=== PATIENT | male | born 1960 | race Caucasian/White ===

== ENCOUNTER 2018-07-16 08:40 | Outpatient (REF) | payer OTHER, SELFPAY ==
[2018-07-16 22:23] LABS: ALT 70 U/L (12-78); Anion Gap 8.6 mmol/L (3-11); BUN 12 mg/dL (7-18); CO2 30.4 mmol/L (21.0-32.0); CREATININE 1.21 mg/dL (0.70-1.30); Calcium 8.8 mg/dL (8.5-10.1); Chloride 100 mmol/L (98-107); Cholesterol 152 mg/dL (50-200); Glucose 122 mg/dL (70-100); HDL Cholesterol 36 mg/dL (40-60); LDL CHOLESTEROL 88 mg/dL (<100); Potassium 3.6 mmol/L (3.5-5.1); Sodium 139 mmol/L (136-145); Triglyceride 293 mg/dL (30-150)
== END 2018-07-16 09:00 ==
LOC: NCHCN 08:40
PROVIDERS: PCP Family Medicine; Visit Provider Family Medicine
DX: E03.9 Hypothyroidism, unspecified (principal); E11.319 Type 2 diabetes mellitus with unspecified diabetic retinopathy without macular edema; Z00.00 Encounter for general adult medical examination without abnormal findings
CPT/HCPCS: 80048; 80061; 83721; 84443; 84460

== ENCOUNTER 2019-07-29 11:01 | Outpatient (REF) | payer OTHER, SELFPAY ==
[2019-07-29 22:50] LABS: TSH (W/Ref FT4) 2.57 uIU/mL (0.36-3.74)
== END 2019-07-29 11:21 ==
LOC: NCHCN 11:01
PROVIDERS: PCP Family Medicine; Visit Provider Family Medicine
DX: E03.9 Hypothyroidism, unspecified (principal)
CPT/HCPCS: 84443

== ENCOUNTER 2020-02-03 10:25 | Outpatient (REF) | payer OTHER, SELFPAY ==
[2020-02-03 21:52] LABS: COMMENT (LAB VIEW ONLY) 179.05 mg/dL; Microalb ug/mg Crea 7.5 ug/mg Cr
== END 2020-02-03 10:45 ==
LOC: NCHCN 10:25
PROVIDERS: PCP Family Medicine; Visit Provider Family Medicine
DX: E11.9 Type 2 diabetes mellitus without complications (principal)
CPT/HCPCS: 82043; 82570

== ENCOUNTER 2020-09-15 17:46 | Outpatient (REF) | payer OTHER, SELFPAY ==
[2020-09-15 22:45] LABS: BUN 16 mg/dL (7-18); CREATININE 1.19 mg/dL (0.70-1.30)
== END 2020-09-15 18:06 ==
LOC: NCHCN 17:46
PROVIDERS: PCP Family Medicine; Visit Provider Registered Nurse
DX: R94.4 Abnormal results of kidney function studies (principal)
CPT/HCPCS: 84520; 82565

== ENCOUNTER 2020-12-07 17:27 | Outpatient (REF) | payer OTHER, SELFPAY ==
[2020-12-07 20:57] LABS: Anion Gap 10.6 mmol/L (3-11); CO2 27.4 mmol/L (21.0-32.0); Chloride 101 mmol/L (98-107); Potassium 3.5 mmol/L (3.5-5.1); Sodium 139 mmol/L (136-145)
[2020-12-08 18:22] LABS: PSA, Screening 0.4 ng/mL (0.0-4.5)
== END 2020-12-07 17:28 | disposition home or self-care (01) ==
LOC: NCHCN 17:27
PROVIDERS: PCP Family Medicine; Visit Provider Family Medicine
DX: E11.9 Type 2 diabetes mellitus without complications (principal); E78.5 Hyperlipidemia, unspecified; I10 Essential (primary) hypertension; Z12.5 Encounter for screening for malignant neoplasm of prostate
CPT/HCPCS: 80051; 84153

== ENCOUNTER 2021-03-09 08:16 | Outpatient (REF) | payer OTHER, SELFPAY ==
[2021-03-09 22:22] LABS: Anion Gap 8.7 mmol/L (3-11); BUN 22 mg/dL (7-18); CO2 29.3 mmol/L (21.0-32.0); CREATININE 1.1 mg/dL (0.70-1.30); Calcium 9.2 mg/dL (8.5-10.1); Chloride 100 mmol/L (98-107); Glucose 124 mg/dL (74-106); Potassium 3.7 mmol/L (3.5-5.1); Sodium 138 mmol/L (136-145); TSH 0.87 uIU/mL (0.36-3.74)
== END 2021-03-09 08:17 | disposition home or self-care (01) ==
LOC: NCHCN 08:16
PROVIDERS: PCP Family Medicine; Visit Provider Family Medicine
DX: Z00.00 Encounter for general adult medical examination without abnormal findings (principal); E03.9 Hypothyroidism, unspecified; I10 Essential (primary) hypertension; E11.9 Type 2 diabetes mellitus without complications
CPT/HCPCS: 80048; 84443

== ENCOUNTER 2022-03-29 16:02 | Outpatient (REF) | payer OTHER, SELFPAY ==
[2022-03-29 21:38] LABS: Abs Immature Grans 0.01 10^3/uL (0.0-0.06); Absolute Basophil Count 0.03 10^3/uL (0.0-0.2); Absolute Eosinophil Count 0.15 10^3/uL (0.0-0.7); Absolute Lymphocyte Count 1.45 10^3/uL (1.2-3.4); Absolute Monocyte Count 0.53 10^3/uL (0.1-0.8); Absolute Neutrophil Count 1.87 10^3/uL (1.2-6.7); Basophils % 0.7; Eosinophils % 3.7; HCT 37.9 % (40.0-50.0); HGB 13.1 g/dL (13.5-17.5); Immature Grans % 0.2; Lymphocytes % 35.9; MCH 33.4 pg (27.0-33.0); MCHC 34.6 % (32.0-36.0); MCV 97 fL (80-95); MPV 10.8 fL (8.0-11.0); Monocytes % 13.1; Neutrophils % 46.4; Platelet Count 227 10^3/uL (130-400); RBC 3.92 10^6/uL (4.36-5.78); RDW 12.6 % (11.8-14.1); RDW-SD 44.7 fL; WBC 4.04 10^3/uL (4.4-10.8)
[2022-03-29 21:49] LABS: ALT 41 U/L (16-63); AST 29 U/L (15-37); Albumin 4.1 g/dL (3.4-5.0); Alkaline Phosphatase 89 U/L (46-116); Anion Gap 9.8 mmol/L (3-11); BUN 15 mg/dL (7-18); Bilirubin, Total 0.3 mg/dL (0.2-1.0); CO2 27.2 mmol/L (21.0-32.0); CREATININE 1.1 mg/dL (0.70-1.30); Calculated LDL 70 mg/dL (<100); Chloride 101 mmol/L (98-107); Cholesterol 176 mg/dL (<200); Glucose 117 mg/dL (74-106); HDL Cholesterol 42 mg/dL (40-60); Potassium 3.8 mmol/L (3.5-5.1); Sodium 138 mmol/L (136-145); TSH 2.46 uIU/mL (0.36-3.74); Total Protein 7.3 g/dL (6.4-8.2); Triglyceride 324 mg/dL (<150)
[2022-03-29 22:08] LABS: Hemoglobin A1C 6.4 % (<5.7)
== END 2022-03-29 16:03 | disposition home or self-care (01) ==
LOC: NCHCN 16:02
PROVIDERS: PCP Family Medicine; Visit Provider Family Medicine
DX: E78.5 Hyperlipidemia, unspecified (principal); E11.9 Type 2 diabetes mellitus without complications; E03.9 Hypothyroidism, unspecified; D48.5 Neoplasm of uncertain behavior of skin; L57.0 Actinic keratosis; E88.81 Metabolic syndrome and other insulin resistance; M16.12 Unilateral primary osteoarthritis, left hip; Z01.818 Encounter for other preprocedural examination; Z01.812 Encounter for preprocedural laboratory examination
CPT/HCPCS: 80053; 80061; 87081; 83036; 84443; 85025

== ENCOUNTER 2022-09-20 18:01 | Outpatient (REF) | payer OTHER, SELFPAY ==
[2022-09-20 21:53] LABS: COMMENT (LAB VIEW ONLY) 110.13 mg/dL
== END 2022-09-20 18:02 | disposition home or self-care (01) ==
LOC: NCHCN 18:01
PROVIDERS: PCP Family Medicine; Visit Provider Family Medicine
DX: E11.9 Type 2 diabetes mellitus without complications (principal)
CPT/HCPCS: 82043; 82570

== ENCOUNTER 2023-04-04 18:24 | Outpatient (REF) | payer OTHER, SELFPAY ==
[2023-04-04 22:29] LABS: Anion Gap 9.9 mmol/L (3-11); BUN 14 mg/dL (7-18); CO2 30.1 mmol/L (21.0-32.0); CREATININE 1.2 mg/dL (0.70-1.30); Calcium 9.3 mg/dL (8.5-10.1); Calculated LDL 44 mg/dL (<100); Chloride 101 mmol/L (98-107); Cholesterol 125 mg/dL (<200); Estimated GFR 67.95 (mL/min/1.73m2); Glucose 103 mg/dL (74-106); HDL Cholesterol 44 mg/dL (40-60); Potassium 3.7 mmol/L (3.5-5.1); Sodium 141 mmol/L (136-145); TSH 2.64 uIU/mL (0.36-3.74); Triglyceride 189 mg/dL (<150)
[2023-04-05 17:51] LABS: PSA, Screening 0.3 ng/mL (<=4.5)
== END 2023-04-04 18:25 | disposition home or self-care (01) ==
LOC: NCHCN 18:24
PROVIDERS: PCP Family Medicine; Visit Provider Family Medicine
DX: E03.9 Hypothyroidism, unspecified (principal); E78.6 Lipoprotein deficiency; I10 Essential (primary) hypertension; Z00.00 Encounter for general adult medical examination without abnormal findings; Z12.5 Encounter for screening for malignant neoplasm of prostate
CPT/HCPCS: 80048; 80061; 84153; 84443

== ENCOUNTER 2023-10-03 12:05 | Outpatient (REF) | payer OTHER, SELFPAY ==
[2023-10-03 21:16] LABS: BUN 13 mg/dL (7-18); Calcium 9.4 mg/dL (8.5-10.1); Chloride 101 mmol/L (98-107); Estimated GFR 84.57 (mL/min/1.73m2); Glucose 108 mg/dL (74-106); Potassium 3.6 mmol/L (3.5-5.1); Sodium 140 mmol/L (136-145); Uric Acid 5.3 mg/dL (3.5-7.2)
[2023-10-03 21:27] LABS: COMMENT (LAB VIEW ONLY) 150.02 mg/dL; Microalb ug/mg Crea 11.9 ug/mg Cr
--- OUTSIDE RECORDS SUMMARY | 2023-10-16 12:09 | XMS_ITS | CCD ---
Author Name Unknown Address [address] [place] [address] [phone] Organization Unknown Address [address] [place] [address] [phone] Care Team Providers Care Jack Tamp Operator Name Role Phone LAUREEN RIVERA Attending Physician [phone] Vital Signs Unknown or Not Available. Allergies Allergy Code Allergy Type Reaction Status [facility] 36726 Drug allergy ITCHING Active Procedures Unknown or Not Available. History of Immunizations Unknown or Not Available. Problems Problem Code Start Date Resolved Date Status Abdominal pain 47367829 Active Enterocolitis 75001844 Active Gout 99682497 Active Results Unknown or Not Available. Active Medications Unknown or Not Available. Medications Administered During Visit Unknown or Not Available. Encounters Encounter Diagnosis Diagnosis Code Start Date Calculus of gallbladder with chronic cholecystitis without obstruction K8010 07/11/2023 Social History Smoking Status Code Start Date End Date Former smoker [id number] Patient Decision Aids Unknown or Not Available. Discharge Instructions You were admitted to 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 on 07/13/2023 00:48 Should you have any questions prior to discharge, please contact a member of your healthcare team. If you have left the hospital and have any questions, please contact your primary care physician. Chief Complaint and Reason For Visit Unknown or Not Available. Function Status Unknown or Not Available. Plan of Care Unknown or Not Available. Referral/Transition of Care Unknown or Not Available.
--- OUTSIDE RECORDS SUMMARY | 2023-10-16 12:10 | XMS_ITS | CCD ---
Author Name Unknown Address [address] [place] [address] [phone] Organization Unknown Address [address] [place] [address] [phone] Care Team Providers Care Retail Performance Specialist Name Role Phone BERNARD BRITTON Attending Physician [phone] BERNARD BRITTON Rounding (Secondary) Physician [phone] Vital Signs Unknown or Not Available. Allergies Allergy Code Allergy Type Reaction Status [facility] 56860 Drug allergy ITCHING Active Procedures Unknown or Not Available. History of Immunizations Unknown or Not Available. Problems Problem Code Start Date Resolved Date Status Abdominal pain 79222234 Active Enterocolitis 41179051 Active Gout 76925651 Active Results Unknown or Not Available. Active Medications Unknown or Not Available. Medications Administered During Visit Unknown or Not Available. Encounters Encounter Diagnosis Diagnosis Code Start Date Disorder of joint of ankle and/or foot [id number] 03/26/2023 Social History Smoking Status Code Start Date End Date Former smoker [id number] Patient Decision Aids Unknown or Not Available. Discharge Instructions You were admitted to [facility] on 03/26/2023 14:54 with a principal diagnosis of Other specified joint disorders, right ankle and foot You were discharged from [facility] on 03/26/2023 00:00 Should you have any questions prior to [...]
--- OUTSIDE RECORDS SUMMARY | 2023-10-16 12:10 | XMS_ITS | CCD ---
Author Name Unknown Address [address] [place] [address] [phone] Organization Unknown Address [address] [place] [address] [phone] Care Team Providers Care Escalator Installer Name Role Phone BERNARD BRITTON Attending Physician [phone] BERNARD BRITTON Rounding (Secondary) Physician [phone] Vital Signs Unknown or Not Available. Allergies Allergy Code Allergy Type Reaction Status [facility] [address]4724 Drug allergy ITCHING Active Procedures Unknown or Not Available. History of Immunizations Unknown or Not Available. Problems Problem Code Start Date Resolved Date Status Abdominal pain 23954004 Active Enterocolitis 76756324 Active Gout 06766039 Active Results Unknown or Not Available. Active Medications Unknown or Not Available. Medications Administered During Visit Unknown or Not Available. Encounters Encounter Diagnosis Diagnosis Code Start Date Disorder of joint of ankle and/or foot [id number] 02/21/2023 Social History Smoking Status Code Start Date End Date Former smoker [id number] Patient Decision Aids Unknown or Not Available. Discharge Instructions You were admitted to [facility] on 02/21/2023 00:00 with a principal diagnosis of Other specified joint disorders, right ankle and foot You were discharged from [facility] on 02/21/2023 00:00 Should you have any questions prior [...]
--- OUTSIDE RECORDS SUMMARY | 2023-10-16 12:10 | XMS_ITS | CCD ---
Author Name Unknown Address [address] [place] [address] [phone] Organization Unknown Address [address] [place] [address] [phone] Care Team Providers Care Flocculator Operator Name Role Phone LAUREEN RIVERA Attending Physician [phone] ELIN GUILLEN Er Physician [phone] SHALA MCMAHON (Secondary) Physician [phone] LAI Christie Registered Nurse [phone] JUDY Christie Registered Nurse [phone] Vital Signs Vital Sign Value Unit Date/Time Recent/Initial ? BMI (Body Mass Index) 33.43 kg/m^2 07/11/2023 12: 08 Initial VS Weight Measured 233 lbs 07/11/2023 12:08 Ini tial VS Height 70 in 07/11/2023 12:08 Initial VS BSA (Body Surface Area) 2.28 m^2 07/11/2023 1 2:08 Initial VS BP Systolic 147 mmHg 07/11/2023 12:08 Initial VS BP Diastolic 89 mmHg 07/11/2023 12:08 Initia l VS Respiratory Rate 18 bpm 07/11/2023 12:08 In itial VS Heart Rate 57 bpm 07/11/2023 12:08 Initial VS O2 % BldC Oximetry 98 % 07/11/2023 12:08 Initial VS Body Temperature 35.3 degrees 07/11/2023 12:08 In itial VS BMI (Body Mass Index) 33.08 kg/m^2 07/11/2023 21: 55 Most Recent VS Weight Measured 237.18 lbs 07/11/2023 21:55 Mos t Recent VS Height 71 in 07/11/2023 21:55 Most Rec ent VS BSA (Body Surface Area) 2.32 m^2 07/11/2023 2 1:55 Most Recent VS BP Systolic 123 mmHg 07/13/2023 07:51 Most Re cent VS BP Diastolic 57 mmHg 07/13/2023 07:51 Most R ecent VS Respiratory Rate 18 bpm 07/13/2023 07:[address] Recent VS Heart Rate 56 bpm 07/13/2023 07:51 Most Rec ent VS O2 % BldC Oximetry 90 % 07/13/2023 07:51 Most Recent VS Body Temperature 37.3 degrees 07/13/2023 07:[address] Recent VS Allergies Allergy Code Allergy Type Reaction Status [facility] 45293 Drug allergy ITCHING Active Procedures Procedure Code Procedure Type Date Laparoscopy, Surgical; Cholecystectomy 04772 CP T 07/11/2023 Anesthesia, Intraperitoneal Proc, Upper Abdomen, w/Laparoscopy; NOS 92389 CPT 07/11/2023 History of Immunizations Unknown or Not Available. Problems Problem Code Start Date Resolved Date Status Abdominal pain 01575583 Active Enterocolitis 00295880 Active Gout 99925633 Active Results COMPREHENSIVE METABOLIC PANE L (CMP) - Collect Date/Time: 07/13/2023 06:51 Test Name Code Test Result Test Units Test Ref Rang e GLUCOSE 2345-7 153 mg/dL L=70 H=116 BUN 3094-0 12 mg/dL L=6 H=25 CREATININE 2160-0 1.30 mg/dL L=0.67 H=1.17 SODIUM SERUM 2951-2 137 mmol/L L=136 H=145 POTASSIUM SERUM 2823-3 3.8 mmol/L L=3.4 H=5 .2 CHLORIDE SERUM 2075-0 100 mmol/L L=96 H=110 CARBON DIOXIDE (CO2) 2028-9 29 mmol/L L=22 H=34 ANION GAP 53722-4 8.0 mmol/L CALCIUM SERUM 74540-4 8.2 mg/dL L=8.2 H=10. 2 BILIRUBIN TOTAL 1975-2 0.6 mg/dL L=0.0 H=1 .3 ALK. PHOS. 6768-6 48 U/L L=46 H=116 SGOT (AST) 1920-8 59 U/L L=15 H=37 SGPT (ALT) 1742-6 80 U/L L=12 H=78 TOTAL PROTEIN 2885-2 6.3 gm/dL L=6.0 H=8.0 ALBUMIN 1751-7 3.2 gm/dL L=3.4 H=5.0 AGE 63 years eGFR (non-Afr.Amer.) 67330-6 56 mL/min eGFR (Afr-Gibraltarian) 49475-0 67 mL/min COMPREHENSIVE METABOLIC PANE L (CMP) - Collect Date/Time: 07/12/2023 06:30 Test Name Code Test Result Test Units Test Ref Rang e GLUCOSE 2345-7 157 mg/dL L=70 H=116 BUN 3094-0 9 mg/dL L=6 H=25 CREATININE 2160-0 1.02 mg/dL L=0.67 H=1.17 SODIUM SERUM 2951-2 140 mmol/L L=136 H=145 POTASSIUM SERUM 2823-3 3.9 mmol/L L=3.4 H=5 .2 CHLORIDE SERUM 2075-0 102 mmol/L L=96 H=110 CARBON DIOXIDE (CO2) 2028-9 32 mmol/L L=22 H=34 ANION GAP 54416-1 6.3 mmol/L CALCIUM SERUM 91484-5 8.9 mg/dL L=8.2 H=10. 2 BILIRUBIN TOTAL 1975-2 0.6 mg/dL L=0.0 H=1 .3 ALK. PHOS. 6768-6 67 U/L L=46 H=116 SGOT (AST) 1920-8 100 U/L L=15 H=37 SGPT (ALT) 1742-6 114 U/L L=12 H=78 TOTAL PROTEIN 2885-2 7.1 gm/dL L=6.0 H=8.0 ALBUMIN 1751-7 3.8 gm/dL L=3.4 H=5.0 AGE 63 years eGFR (non-Afr.Amer.) 62700-6 74 mL/min eGFR (Afr-Gibraltarian) 17791-6 89 mL/min COMPREHENSIVE METABOLIC PANE L (CMP) - Collect Date/Time: 07/11/2023 12:20 Test Name Code Test Result Test Units Test Ref Rang e GLUCOSE 2345-7 199 mg/dL L=70 H=116 BUN 3094-0 11 mg/dL L=6 H=25 CREATININE 2160-0 1.08 mg/dL L=0.67 H=1.17 SODIUM SERUM 2951-2 141 mmol/L L=136 H=145 POTASSIUM SERUM 2823-3 3.8 mmol/L L=3.4 H=5 .2 CHLORIDE SERUM 2075-0 101 mmol/L L=96 H=110 CARBON DIOXIDE (CO2) 2028-9 29 mmol/L L=22 H=34 ANION GAP 09699-1 11.3 mmol/L CALCIUM SERUM 81753-4 9.2 mg/dL L=8.2 H=10. 2 BILIRUBIN TOTAL 1975-2 0.7 mg/dL L=0.0 H=1 .3 ALK. PHOS. 6768-6 82 U/L L=46 H=116 SGOT (AST) 1920-8 97 U/L L=15 H=37 SGPT (ALT) 1742-6 63 U/L L=12 H=78 TOTAL PROTEIN 2885-2 7.5 gm/dL L=6.0 H=8.0 ALBUMIN 1751-7 4.1 gm/dL L=3.4 H=5.0 AGE 63 years eGFR (non-Afr.Amer.) 15479-4 69 mL/min eGFR (Afr-Gibraltarian) 33645-9 84 mL/min LIPASE* NEW - Collect Date/T byron: 07/11/2023 12:20 Test Name Code Test Result Test Units Test Ref Rang e LIPASE. 48 U/L L=16 H=77 NOVA GLUCOSE FINGER HEEL CAP ILLARY - Collect Date/Time: 07/13/2023 11:49 Test Name Code Test Result Test Units Test Ref Rang e GLUCOSE CAP 52896-3 154 mg/dL L=70 H=116 NOVA GLUCOSE FINGER HEEL CAP ILLARY - Collect Date/Time: 07/13/2023 07:42 Test Name Code Test Result Test Units Test Ref Rang e GLUCOSE CAP 71092-2 153 mg/dL L=70 H=116 NOVA GLUCOSE FINGER HEEL CAP ILLARY - Collect Date/Time: 07/12/2023 20:54 Test Name Code Test Result Test Units Test Ref Rang e GLUCOSE CAP 17812-1 183 mg/dL L=70 H=116 NOVA GLUCOSE FINGER HEEL CAP ILLARY - Collect Date/Time: 07/12/2023 17:50 Test Name Code Test Result Test Units Test Ref Rang e GLUCOSE CAP 22699-8 182 mg/dL L=70 H=116 NOVA GLUCOSE FINGER HEEL CAP ILLARY - Collect Date/Time: 07/12/2023 11:49 Test Name Code Test Result Test Units Test Ref Rang e GLUCOSE CAP 94263-7 151 mg/dL L=70 H=116 NOVA GLUCOSE FINGER HEEL CAP ILLARY - Collect Date/Time: 07/12/2023 07:49 Test Name Code Test Result Test Units Test Ref Rang e GLUCOSE CAP 49953-4 152 mg/dL L=70 H=116 NOVA GLUCOSE FINGER HEEL CAP ILLARY - Collect Date/Time: 07/11/2023 21:21 Test Name Code Test Result Test Units Test Ref Rang e GLUCOSE CAP 24287-9 89 mg/dL L=70 H=116 CBC W/ DIFFERENTIAL* - Colle ct Date/Time: 07/13/2023 06:51 Test Name Code Test Result Test Units Test Ref Rang e WBC 6690-2 7.62 th/cmm L=5.00 H=10.00 NEUT % 80.0 % L=40.0 H=80.0 LYMPH % 12.3 % L=10.0 H=50.0 MONO % 91772-9 6.7 % L=2.0 H=12.0 EOS % 0.5 % L=0.0 H=8.0 BASO % 0.1 % L=0.0 H=3.0 IG % 2514-8 0.4 % L=0.0 H=1.1 NRBC % 25729-9 0.0 % L=0.0 H=0.0 NEUT abs count 751-8 6.1 th/cmm L=1.6 H=8. 4 LYMPH abs count 731-0 0.9 th/cmm L=1.5 H=4 .0 MONO abs count 742-7 0.5 th/cmm L=0.2 H=1. 0 EOS abs count 711-2 0.0 th/cmm L=0.0 H=0.5 BASO abs count 704-7 0.0 th/cmm L=0.0 H=0. 2 IG abs count 81398-7 0.0 th/cmm L=0.0 H=0.1 NRBC abs count 37807-3 0.0 mil/cmm L=0.0 H=0. 0 RBC 789-8 3.73 mil/cmm L=4.30 H=6.20 HEMOGLOBIN 718-7 12.4 gm/dL L=13.0 H=17.0 HEMATOCRIT 4544-3 37 % L=45 H=52 MCV 787-2 99 fL L=82 H=92 MCH 785-6 33.2 pg L=27.0 H=31.0 MCHC 786-4 33.7 % L=32.0 H=36.0 RDW-SD 788-0 46.3 fL L=39.0 H=49.0 PLATELET COUNT 777-3 157 th/cmm L=150 H=45 0 CBC W/ DIFFERENTIAL* - Colle ct Date/Time: 07/12/2023 06:30 Test Name Code Test Result Test Units Test Ref Rang e WBC 6690-2 3.55 th/cmm L=5.00 H=10.00 NEUT % 50.1 % L=40.0 H=80.0 LYMPH % 33.0 % L=10.0 H=50.0 MONO % 96700-8 12.1 % L=2.0 H=12.0 EOS % 3.9 % L=0.0 H=8.0 BASO % 0.6 % L=0.0 H=3.0 IG % 2514-8 0.3 % L=0.0 H=1.1 NRBC % 12501-7 0.0 % L=0.0 H=0.0 NEUT abs count 751-8 1.8 th/cmm L=1.6 H=8. 4 LYMPH abs count 731-0 1.2 th/cmm L=1.5 H=4 .0 MONO abs count 742-7 0.4 th/cmm L=0.2 H=1. 0 EOS abs count 711-2 0.1 th/cmm L=0.0 H=0.5 BASO abs count 704-7 0.0 th/cmm L=0.0 H=0. 2 IG abs count 02412-0 0.0 th/cmm L=0.0 H=0.1 NRBC abs count 55324-8 0.0 mil/cmm L=0.0 H=0. 0 RBC 789-8 4.05 mil/cmm L=4.30 H=6.20 HEMOGLOBIN 718-7 13.5 gm/dL L=13.0 H=17.0 HEMATOCRIT 4544-3 40 % L=45 H=52 MCV 787-2 99 fL L=82 H=92 MCH 785-6 33.3 pg L=27.0 H=31.0 MCHC 786-4 33.8 % L=32.0 H=36.0 RDW-SD 788-0 44.9 fL L=39.0 H=49.0 PLATELET COUNT 777-3 177 th/cmm L=150 H=45 0 CBC W/ DIFFERENTIAL* - [facility] ct Date/Time: 07/11/2023 12:20 Test Name Code Test Result Test Units Test Ref Rang e WBC 6690-2 4.71 th/cmm L=5.00 H=10.00 NEUT % 64.8 % L=40.0 H=80.0 LYMPH % 21.0 % L=10.0 H=50.0 MONO % 41576-0 10.0 % L=2.0 H=12.0 EOS % 3.4 % L=0.0 H=8.0 BASO % 0.6 % L=0.0 H=3.0 IG % 2514-8 0.2 % L=0.0 H=1.1 NRBC % 00764-6 0.0 % L=0.0 H=0.0 NEUT abs count 751-8 3.1 th/cmm L=1.6 H=8. 4 LYMPH abs count 731-0 1.0 th/cmm L=1.5 H=4 .0 MONO abs count 742-7 0.5 th/cmm L=0.2 H=1. 0 EOS abs count 711-2 0.2 th/cmm L=0.0 H=0.5 BASO abs count 704-7 0.0 th/cmm L=0.0 H=0. 2 IG abs count 82097-7 0.0 th/cmm L=0.0 H=0.1 NRBC abs count 68596-7 0.0 mil/cmm L=0.0 H=0. 0 RBC 789-8 3.99 mil/cmm L=4.30 H=6.20 HEMOGLOBIN 718-7 13.5 gm/dL L=13.0 H=17.0 HEMATOCRIT 4544-3 39 % L=45 H=52 MCV 787-2 98 fL L=82 H=92 MCH 785-6 33.8 pg L=27.0 H=31.0 MCHC 786-4 34.4 % L=32.0 H=36.0 RDW-SD 788-0 44.5 fL L=39.0 H=49.0 PLATELET COUNT 777-3 193 th/cmm L=150 H=45 0 URINALYSIS WITH REFLEX CULT IF POSITIVE* - Collect Date/Time: 07/11/2023 12:35 Test Name Code Test Result Test Units Test Ref Rang e COLLECTION MODE: 54356-7 CLEAN CATCH N/A Color 5778-6 YELLOW N/A yellow Appearance 5767-9 CLEAR N/A clear Glucose urine 77588-3 NEGATIVE N/A negative mg /dl Bilirubin 5770-3 NEGATIVE N/A negative Ketones 2514-8 TRACE N/A negative mg/dl Spec gravity 5811-5 >=1.030 N/A 1.003 - 1.03 0 pH urine 2756-5 6.0 N/A 5.0 - 7.0 Protein 28401-3 30 N/A negative mg/dl Urobilinogen 98459-9 1.0 N/A <or= 1 EU/dl Nitrite. 5802-4 NEGATIVE N/A negative Blood 5794-3 NEGATIVE N/A negative Leukocytes. NEGATIVE N/A negative MICROSCOPIC INDICATED N/A WBCs. 02312-3 0-5 N/A 0-5 / hpf RBCs 19431-6 none N/A 0-5 / hpf Epith cells 96992-5 0-5 N/A 0-5 / hpf Cell types squamous N/A Crystals none N/A none Bacteria none N/A none Mucus 8247-9 none N/A none Casts 69801-9 5-10 N/A none /lpf Cast types hyaline N/A Active Medications Medication Code Dose Units Frequency Route Modificatio n Start Date/Time DEXTROSE 50% SYRINGE: 25GM/50ML 745016 12.5 GM PRN IVP 0 07/12/2023 18:13 GLUCAGON INJ SDV: 1MG 178090 1 MG PRN IM 07/12/2023 18:13 INSULIN PEN LISPRO: 300UNITS/3ML 5000737 Unit(s) PRN SUBQ 023 18:06 LEVOTHYROXINE TABLET: 75MCG 973962 75 MCG DAILY PO 2022 18:05 NF-Atenolol/Chlort halidone Tablet 50MG-2 857474 1 EA DAILY PO 07/12/2023 18:05 ACETAMINOPHEN INJ IVPB: 1000MG/100ML 083497 PRN Q6H IVPB 0 07/12/2023 18:02 ~~ ACETAMINOPHEN INJ IVPB: 1000MG/100ML 720416 2406 MG HYDROmorphone INJ SYRINGE: 0.5MG/0.5ML 4301663 0.5 MG PRN Q2H IVP 07/12/20 18:02 ONDANSETRON INJ SDV: 4MG/2ML 7214464 4 MG PRN Q6H IVP 023 18:02 OxyCODONE TABLET no apap added: 5mg 7103018 5 MG PRN Q3H PO 0 07/12/2023 18:02 PANTOPRAZOLE INJ SDV: 40MG 07290147244 40 MG DAILY IVP 07/12/20 23 18:02 POTASSIUM CHL IN D5%-1/2NS: 20mEq/1000ML 4087536 CONT IV 023 18:02 ~~ POTASSIUM CHL IN D5%-1/2NS: 20mEq/1000ML 7635758 20 MEQ CefTRIAXone IVPB: 2GM/50ML 6900608 Q24H IVPB 07/12/2023 17:00 ~~ CefTRIAXone INJ SDV: 2GM 2725034 2 GM ~~ SODIUM CHLORIDE 0.9% MB PLUS 50ML 9518655 50 ML LACTATED RINGERS 1000ML 017074 X1 IV 07/12/2023 09:05 ~~ LACTATED RINGERS 1000ML 547311 9939 ML PATIENT'S OWN MEDS REMINDER TO NURSING 49321941236 1 --- X1 PO 07/12/20 08:40 MIDAZOLAM INJ SDV: 2MG/2ML 9813216 2 MG X1 IVP 07/12/2023 06:00 Medications Administered During Visit Medication Dose Units Frequency Route Date/Time of Last Dose SODIUM CHLORIDE 0.9% 500ML 500 ML X1 IV 07/11/2023 12:36 CefTRIAXone IVPB: 2GM/50ML 2 GM X1 IVP B 07/11/2023 17:27 SODIUM CHLORIDE 0.9% 1000ML 1000 ML X1 IV 07/11/2023 17:27 LEVOTHYROXINE TABLET: 75MCG 75 MCG DAILY PO 07/12/2023 08:06 POTASSIUM CHL IN D5%-1/2NS: 20mEq/1000ML 75 ML CONT IV 07/12/2023 10:1 4 PANTOPRAZOLE INJ SDV: 40MG 40 MG DAILY IVP 07/12/2023 08:06 INSULIN MDV LISPRO: 1000UNITS/10ML 4 Unit(s) PRN SUBQ 07/12/2023 08 :41 INSULIN PEN LISPRO: 300UNITS/3ML 4 Unit(s) PRN SUBQ 07/12/2023 12:0 5 NF-Atenolol/Chlorthalidone Tablet 50MG-2 1 TAB DAILY PO 07/12/2023 08: 58 OxyCODONE TABLET SR: 10MG 10 MG X1 PO 07/12/2023 13:23 FentaNYL INJ SYRINGE: 50MCG/ML 25 MCG PRN IN PACU Q5MIN IVP 07/12/2023 18:53 HYDROmorphone INJ SYRINGE: 0.5MG/0.5ML 0.25 MG PRN IN PACU Q5MIN IVP 07/12/2023 18:23 ACETAMINOPHEN INJ IVPB: 1000MG/100ML 1000 MG PRN IN PACU X1 IVPB 07/12/2023 18 :05 KETOROLAC INJ SDV: 30MG/1ML 30 MG PRN IN PACU X1 IVP 07/12/2023 18:02 ONDANSETRON INJ SDV: 4MG/2ML 4 MG PRN IN PACU X1 IVP 07/12/2023 17 :59 METOCLOPRAMIDE INJ SDV: 10MG/2ML 10 MG PRN IN PACU X1 IVP 07/12/2023 18 :31 PROMETHAZINE SUPPOSITORY: 25MG 25 MG PRN IN PACU X1 FL 07/12/2023 18 :06 LEVOTHYROXINE TABLET: 75MCG 75 MCG DAILY PO 07/13/2023 08:48 INSULIN PEN LISPRO: 300UNITS/3ML 4 Unit(s) PRN SUBQ 07/13/2023 12:4 0 POTASSIUM CHL IN D5%-1/2NS: 20mEq/1000ML 1000 ML CONT IV 07/12/2023 22:1 1 KETOROLAC INJ SDV: 30MG/1ML 15 MG Q6H IV P 07/13/2023 12:52 PANTOPRAZOLE INJ SDV: 40MG 40 MG DAILY IVP 07/13/2023 08:48 Encounters Encounter Diagnosis Diagnosis Code Start Date Calculus of gallbladder with acute and chronic cholecystitis without obstruction K8012 07/11/2023 Social History Smoking Status Code Start Date End Date Former smoker [id number] Patient Decision Aids Patient Decision Aid Laparoscopic Cholecystectomy Low Fat Diet Patient Portal Access Discharge Instructions You were admitted to [facility] on 07/11/2023 18:52 with a principal diagnosis of Calculus of gallbladder with acute and chronic cholecystitis without obstruction You had the following procedures done:Laparoscopy, Surgical; CholecystectomyAnesthesia, Intraperitoneal Proc, Upper Abdomen, w/Laparoscopy; NOS You had the following tests done:NOVA GLUCOSE FINGER HEEL CAPILLARYNOVA GLUCOSE FINGER HEEL CAPILLARYCBC W/ DIFFERENTIAL*COMPREHENSIVE METABOLIC PANEL (CMP)NOVA GLUCOSE FINGER HEEL CAPILLARYNOVA GLUCOSE FINGER HEEL CAPILLARYNOVA GLUCOSE FINGER HEEL CAPILLARYNOVA GLUCOSE FINGER HEEL CAPILLARYCBC W/ DIFFERENTIAL*COMPREHENSIVE METABOLIC PANEL (CMP)NOVA GLUCOSE FINGER HEEL CAPILLARYURINALYSIS WITH REFLEX CULT IF POSITIVE*CBC W/ DIFFERENTIAL*COMPREHENSIVE METABOLIC PANEL (CMP)LIPASE* NEW You were discharged from [facility] on 07/13/2023 13:35 Should you have any questions prior to discharge, please contact a member of your healthcare team. If you have left the hospital and have any questions, please contact your primary care physician. Chief Complaint and Reason For Visit Chief Complaint Date of Onset CHOLECYSTITIS 07/12/2023 Function Status Unknown or Not Available. Plan of Care Unknown or Not Available. Referral/Transition of Care Unknown or Not Available.
--- OUTSIDE RECORDS SUMMARY | 2023-10-16 12:10 | XMS_ITS | CCD ---
Author Name Unknown Address [address] [place] [address] [phone] Organization Unknown Address [address] [place] [address] [phone] Care Team Providers Care Idea Man Name Role Phone CHARLENE GILLILAND Attending Physician [phone] ELIN GUILLEN Er Physician [phone] SARA Page Registered Nurse [phone] Vital Signs Vital Sign Value Unit Date/Time Recent/Initial ? BMI (Body Mass Index) 32.28 kg/m^2 01/06/2023 14: 36 Initial VS Weight Measured 225 lbs 01/06/2023 14:36 Ini tial VS Height 70 in 01/06/2023 14:36 Initial VS BSA (Body Surface Area) 2.25 m^2 01/06/2023 1 4:36 Initial VS BP Systolic 132 mmHg 01/06/2023 14:36 Initial VS BP Diastolic 87 mmHg 01/06/2023 14:36 Initia l VS Respiratory Rate 18 bpm 01/06/2023 14:36 In itial VS Heart Rate 66 bpm 01/06/2023 14:36 Initial VS O2 % BldC Oximetry 99 % 01/06/2023 14:36 Initial VS Body Temperature 36 degrees 01/06/2023 14:36 In itial VS BP Systolic 130 mmHg 01/06/2023 19:04 Most Re cent VS BP Diastolic 81 mmHg 01/06/2023 19:04 Most R ecent VS Respiratory Rate 18 bpm 01/06/2023 19:[address] Recent VS Heart Rate 61 bpm 01/06/2023 19:04 Most Rec ent VS O2 % BldC Oximetry 100 % 01/06/2023 19:04 Most Recent VS Body Temperature 36.3 degrees 01/06/2023 19:[address] Recent VS Allergies Allergy Code Allergy Type Reaction Status [facility] [address] Drug allergy ITCHING Active Procedures Unknown or Not Available. History of Immunizations Unknown or Not Available. Problems Problem Code Start Date Resolved Date Status Abdominal pain 36401133 Active Enterocolitis 65075398 Active Gout 37941198 Active Diabetes 2 88278150 01/06/2023 Resolved High blood pressure 27168871 01/06/2023 Resol ezekiel Results COMPREHENSIVE METABOLIC PANE L (CMP) - Collect Date/Time: 01/06/2023 16:15 Test Name Code Test Result Test Units Test Ref Rang e GLUCOSE 2345-7 126 mg/dL L=70 H=116 BUN 3094-0 45 mg/dL L=6 H=25 CREATININE 2160-0 1.53 mg/dL L=0.67 H=1.17 SODIUM SERUM 2951-2 132 mmol/L L=136 H=145 POTASSIUM SERUM 2823-3 3.5 mmol/L L=3.4 H=5 .2 CHLORIDE SERUM 2075-0 94 mmol/L L=96 H=110 CARBON DIOXIDE (CO2) 2028-9 27 mmol/L L=22 H=34 ANION GAP 13002-4 11.2 mmol/L CALCIUM SERUM 36616-7 8.6 mg/dL L=8.2 H=10. 2 BILIRUBIN TOTAL 1975-2 0.8 mg/dL L=0.0 H=1 .3 ALK. PHOS. 6768-6 63 U/L L=46 H=116 SGOT (AST) 1920-8 88 U/L L=15 H=37 SGPT (ALT) 1742-6 86 U/L L=12 H=78 TOTAL PROTEIN 2885-2 7.9 gm/dL L=6.0 H=8.0 ALBUMIN 1751-7 3.9 gm/dL L=3.4 H=5.0 AGE 62 years eGFR (non-Afr.Amer.) 69976-9 46 mL/min eGFR (Afr-Stateless) 34122-7 56 mL/min LIPASE* NEW - Collect Date/T byron: 01/06/2023 16:15 Test Name Code Test Result Test Units Test Ref Rang e LIPASE. 81 U/L L=16 H=77 CBC W/ DIFFERENTIAL* - Colle ct Date/Time: 01/06/2023 16:15 Test Name Code Test Result Test Units Test Ref Rang e WBC 6690-2 4.01 th/cmm L=5.00 H=10.00 NEUT % 46.8 % L=40.0 H=80.0 LYMPH % 31.2 % L=10.0 H=50.0 MONO % 48559-6 20.9 % L=2.0 H=12.0 EOS % 0.7 % L=0.0 H=8.0 BASO % 0.2 % L=0.0 H=3.0 IG % 2514-8 0.2 % L=0.0 H=1.1 NRBC % 88190-0 0.0 % L=0.0 H=0.0 NEUT abs count 751-8 1.9 th/cmm L=1.6 H=8. 4 LYMPH abs count 731-0 1.3 th/cmm L=1.5 H=4 .0 MONO abs count 742-7 0.8 th/cmm L=0.2 H=1. 0 EOS abs count 711-2 0.0 th/cmm L=0.0 H=0.5 BASO abs count 704-7 0.0 th/cmm L=0.0 H=0. 2 IG abs count 26103-0 0.0 th/cmm L=0.0 H=0.1 NRBC abs count 31327-7 0.0 mil/cmm L=0.0 H=0. 0 RBC 789-8 4.88 mil/cmm L=4.30 H=6.20 HEMOGLOBIN 718-7 16.7 gm/dL L=13.0 H=17.0 HEMATOCRIT 4544-3 47 % L=45 H=52 MCV 787-2 96 fL L=82 H=92 MCH 785-6 34.2 pg L=27.0 H=31.0 MCHC 786-4 35.8 % L=32.0 H=36.0 RDW-SD 788-0 44.2 fL L=39.0 H=49.0 PLATELET COUNT 777-3 218 th/cmm L=150 H=45 0 CLOSTRIDIUM DIFFICILE BY PCR * - Collect Date/Time: 01/07/2023 08:00 Test Name Code Test Result Test Units Test Ref Rang e Consistency = 31341-3 WATERY N/A C. DIFFICILE DNA 13097-1 NEGATIVE N/A Normal: Negative LACTOFERRIN DETECTION STOOL - Collect Date/Time: 01/07/2023 08:00 Test Name Code Test Result Test Units Test Ref Rang e Consistency: WATERY N/A Lactoferrin stool POSITIVE N/A URINALYSIS WITH REFLEX CULT IF POSITIVE* - Collect Date/Time: 01/06/2023 16:43 Test Name Code Test Result Test Units Test Ref Rang e COLLECTION MODE: 10545-9 CLEAN CATCH N/A Color 5778-6 YELLOW N/A yellow Appearance 5767-9 CLEAR N/A clear Glucose urine 18547-3 NEGATIVE N/A negative mg /dl Bilirubin 5770-3 NEGATIVE N/A negative Ketones 2514-8 NEGATIVE N/A negative mg/dl Spec gravity 5811-5 1.020 N/A 1.003 - 1.03 0 pH urine 2756-5 6.0 N/A 5.0 - 7.0 Protein 27185-4 TRACE N/A negative mg/dl Urobilinogen 63844-4 0.2 N/A <or= 1 EU/dl Nitrite. 5802-4 NEGATIVE N/A negative Blood 5794-3 NEGATIVE N/A negative Leukocytes. NEGATIVE N/A negative MICROSCOPIC NOT INDICAT N/A FECAL BACTERIAL PATHOGENS BY PCR - Collect Date/Time: 01/07/2023 08:00 Test Name Code Test Result Test Units Test Ref Rang e Salmonella PCR Negative N/A Negative Shigella PCR Negative N/A Negative Campylobacter PCR Negative N/A Negativ e Shiga Toxin PCR Negative N/A Negative OVA AND PARASITES - COMPLETE * - Collect Date/Time: 01/07/2023 08:00 Test Name Code Test Result Test Units Test Ref Rang e Parasite Growth No ova and parasites seen. 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 Discharge Instructions You were admitted to [facility] on 01/06/2023 13:49 with a principal diagnosis of Noninfective gastroenteritis and colitis, unspecified You had the following tests done:CLOSTRIDIUM DIFFICILE BY PCR*FECAL BACTERIAL PATHOGENS BY PCRLACTOFERRIN DETECTION STOOLOVA AND PARASITES - COMPLETE*URINALYSIS WITH REFLEX CULT IF POSITIVE*CBC W/ DIFFERENTIAL*COMPREHENSIVE METABOLIC PANEL (CMP)LIPASE* NEW You were discharged from [facility] on 01/06/2023 21:13 Should you have any questions prior to discharge, please contact a member of your healthcare team. If you have left the hospital and have any questions, please contact your primary care physician. Chief Complaint and Reason For Visit Chief Complaint Date of Onset DIARRHEA DEHYDRATED SINCE 12/14 Function Status Unknown or Not Available. Plan of Care Unknown or Not Available. Referral/Transition of Care Unknown or Not Available.
--- OUTSIDE RECORDS SUMMARY | 2023-10-16 12:11 | XMS_ITS | CCD ---
Author Name Unknown Address [address] [place] [address] [phone] Organization Unknown Address [address] [place] [address] [phone] Care Team Providers Care Warp Tier Name Role Phone MIGUELITO ANTON Attending Physician [phone] Vital Signs Unknown or Not Available. Allergies Allergy Code Allergy Type Reaction Status [facility] 26118 Drug allergy ITCHING Active Procedures Unknown or Not Available. History of Immunizations Unknown or Not Available. Problems Problem Code Start Date Resolved Date Status Abdominal pain 87646293 Active Enterocolitis 31558711 Active Gout 90168742 Active Diabetes 2 07050114 01/06/2023 Resolved High blood pressure 65445430 01/06/2023 Resol ezekiel Results LALO POSADAONIX* - Antonio ect Date/Time: 12/28/2021 15:41 Test Name Code Test Result Test Units Test Ref Rang e Tier- 68104-3 PRE-OP N/A SARS COV2 RNA: 12113-1 NEGATIVE N/A REFERENCE RANGE: NEGAT Active Medications Unknown or Not Available. Medications Administered During Visit Unknown or Not Available. Encounters Encounter Diagnosis Diagnosis Code Start Date Pre-surgery testing [id number] 12/28/2021 Social History Smoking Status Code Start Date End Date Former smoker 6956382 Patient Decision Aids Unknown or Not Available. Discharge Instructions You were admitted to [facility] on 12/28/2021 16:06 with a principal diagnosis of Encounter for preprocedural laboratory examination You had the following tests done:LALO COVID RHEONIX* You were discharged from [facility] on 12/28/2021 16:06 Should you have any questions prior to [...]
--- OUTSIDE RECORDS SUMMARY | 2023-10-16 12:11 | XMS_ITS | CCD ---
Author Name Unknown Address [address] [place] [address] [phone] Organization Unknown Address [address] [place] [address] [phone] Care Team Providers Care Wardrobe Coordinator Name Role Phone MIGUELITO ANTON Attending Physician [phone] Vital Signs Unknown or Not Available. Allergies Allergy Code Allergy Type Reaction Status [facility] 95408 Drug allergy ITCHING Active Procedures Procedure Code Procedure Type Date Injection, Diagnostic/Therap eutic, Paravertebral Facet Joint, Lumbar Or Sacral; Single Level 45774 CPT 12/30/2021 Injection, Diagnostic/Therap eutic, Paravertebral Facet Joint, Lumbar Or Sacral; Second Level 69355 CPT 12/30/2021 History of Immunizations Unknown or Not Available. Problems Problem Code Start Date Resolved Date Status Abdominal pain 30339341 Active Enterocolitis 86618454 Active Gout 97545586 Active Diabetes 2 75468807 01/06/2023 Resolved High blood pressure 37845728 01/06/2023 Resol ezekiel Results Unknown or Not Available. Active Medications Unknown or Not Available. Medications Administered During Visit Unknown or Not Available. Encounters Encounter Diagnosis Diagnosis Code Start Date Spondylosis without myelopat hy or radiculopathy, lumbosacral region G63049 12/30/2021 Social History Smoking Status Code Start Date End Date Former smoker 2683778 Patient Decision Aids Unknown or Not Available. Discharge Instructions You were admitted to on 12/30/2021 08:29 with a principal diagnosis of Spondylosis without myelopathy or radiculopathy, lumbosacral region You had the following procedures done:Injection, Diagnostic/Therapeutic, Paravertebral Facet Joint, Lumbar Or Sacral; Single LevelInjection, Diagnostic/Therapeutic, Paravertebral Facet Joint, Lumbar Or Sacral; Second Level You were discharged from on 12/30/2021 10:00 Should you have any questions prior to [...]
--- OUTSIDE RECORDS SUMMARY | 2023-10-16 12:11 | XMS_ITS | CCD ---
Author Name Unknown Address [address] [place] [address] [phone] Organization Unknown Address [address] [place] [address] [phone] Care Team Providers Care Glass Engraver Name Role Phone MANUEL MAZA Attending Physician [phone] Vital Signs Unknown or Not Available. Allergies Allergy Code Allergy Type Reaction Status [facility] [address] Drug allergy ITCHING Active Procedures Unknown or Not Available. History of Immunizations Unknown or Not Available. Problems Problem Code Start Date Resolved Date Status Abdominal pain 47395220 Active Enterocolitis 93850923 Active Gout 83083490 Active Diabetes 2 27519098 01/06/2023 Resolved High blood pressure 19416805 01/06/2023 Resol ezekiel Results Unknown or Not Available. Active Medications Unknown or Not Available. Medications Administered During Visit Unknown or Not Available. Encounters Encounter Diagnosis Diagnosis Code Start Date Aftercare following joint replacement surgery Z4 71 05/05/2022 Social History Smoking Status Code Start Date End Date Former smoker 8669659 Patient Decision Aids Unknown or Not Available. Discharge Instructions You were admitted to [facility] on 05/05/2022 12:30 with a principal diagnosis of Aftercare following joint replacement surgery You were discharged from [facility] on 07/04/2022 13:10 Should you have any questions prior to [...]
--- OUTSIDE RECORDS SUMMARY | 2023-10-16 12:11 | XMS_ITS | CCD ---
Author Name Unknown Address [address] [place] [address] [phone] Organization Unknown Address [address] [place] [address] [phone] Care Team Providers Care Child Welfare Manager Name Role Phone MIGUELITO ANTON Attending Physician [phone] Vital Signs Unknown or Not Available. Allergies Allergy Code Allergy Type Reaction Status [facility] [address] Drug allergy ITCHING Active Procedures Unknown or Not Available. History of Immunizations Unknown or Not Available. Problems Problem Code Start Date Resolved Date Status Abdominal pain 54971704 Active Enterocolitis 48065096 Active Gout 79174037 Active Diabetes 2 58815598 01/06/2023 Resolved High blood pressure 51575298 01/06/2023 Resol ezekiel Results Unknown or Not Available. Active Medications Unknown or Not Available. Medications Administered During Visit Unknown or Not Available. Encounters Encounter Diagnosis Diagnosis Code Start Date Pain in left hip S20402 12/07/2021 Social History Smoking Status Code Start Date End Date Former smoker 0427603 Patient Decision Aids Unknown or Not Available. Discharge Instructions You were admitted to [facility] on 12/07/2021 12:03 with a principal diagnosis of Pain in left hip You were discharged from [facility] on 12/07/2021 12:03 Should you have any questions prior to [...]
== END 2023-10-03 12:06 | disposition home or self-care (01) ==
LOC: NCHCN 12:05
PROVIDERS: PCP Family Medicine; Visit Provider Family Medicine
DX: I10 Essential (primary) hypertension (principal); E11.9 Type 2 diabetes mellitus without complications
CPT/HCPCS: 80048; 82043; 82570; 84550

== ENCOUNTER 2024-01-09 18:55 | Outpatient (REF) | payer OTHER, SELFPAY ==
[2024-01-09 21:22] LABS: Hemoglobin A1C 6.6 % (<5.7)
== END 2024-01-09 18:56 | disposition home or self-care (01) ==
LOC: NCHCN 18:55
PROVIDERS: PCP Family Medicine; Visit Provider Family Medicine
DX: E11.9 Type 2 diabetes mellitus without complications (principal)
CPT/HCPCS: 83036

== ENCOUNTER 2024-05-28 19:47 | Outpatient (REF) | payer OTHER, SELFPAY ==
--- OUTSIDE RECORDS SUMMARY | 2024-05-28 20:02 | XMS_ITS | Encounter Summary ---
Author Organization [facility] Address [address] [place] [address] Care Team Providers Care Technical Support Director Name Role Phone Unavailable Primary Care Provider Unavailabl e Encounter Details Date Type Department Care Team (Latest Contact Info) Description 10/02/2001 10:45 EST - 10/02/2001 11:59 EST Hospital Encounter [facility] [address] [place] [address] Yusuf Poon MD [address] [place] [phone] Discharge Disposition: Auto Discharge Social History Tobacco Use Types Packs/Day Years Used Date Smoking Tobacco: Never Assessed Sex and Gender Information Value Date Recorded Sex Assigned at Not on file Gender Identity Not on file Sexual Orientation Not on file documented as of this encounter Discharge Disposition Disposition Code Departure Means Destination Auto Discharge documented in this encounter Plan of Treatment Not on file documented as of this encounter Procedures Procedure Name Priority Date/Time Associated Diagnosis Comments WRIST 2 VIEWS Routine 11/04/2001 10:39 EST FOREARM 2 VIEWS Routine 11/04/2001 10:39 EST WRIST 2 VIEWS Routine 11/04/2001 10:15 EST documented in this encounter Results * WRIST 2 VIEWS (11/04/2001 10:39 EST) Anatomical Region Laterality Modality Other 11/04/2001 10:3 9 EST Impressions 09/03/2009 3:19 EST IMPRESSION: 1. Status post resection of left radial head. 2. Degenerative changes at the left elbow, as described above. LEFT WRIST FINDINGS: The bones and joints of the left wrist are normal in appearance. There is no evidence of bony abnormality or fracture. FINDINGS FOR RIGHT WRIST: The bones and joints and for the right wrist are normal in appearance. There is no evidence of bony abnormality or fracture. IMPRESSION: Normal right and left wrist. /tns Narrative 09/03/2009 3:19 EST LT ELBOW/WRIST PAIN OA / COMP RT WRIST FOREARM, TWO VIEWS, LEFT: 11/04/01, 1035 HOURS. WRIST, TWO VIEWS, RIGHT. TWO VIEWS, LEFT WRIST. INDICATION: Left elbow and wrist pain. Rule out osteoarthritis. Compare to right wrist. There are no comparison examinations available. FINDINGS: FOREARM: AP and lateral views of the left forearm are obtained. The patient is status post resection of the right radial head. There is a small, well corticated periarticular fragment adjacent to the lateral proximal ulna. The elbow is in normal alignment. There is mild spurring posteriorly at the triceps attachment. Procedure Note Yeny De León / [place] C, PT - 09/03/2009 LT ELBOW/WRIST PAIN OA / COMP RT WRIST FOREARM, TWO VIEWS, LEFT: 11/04/01, 1035 HOURS. WRIST, TWO VIEWS, RIGHT. TWO VIEWS, LEFT WRIST. INDICATION: Left elbow and wrist pain. Rule out osteoarthritis. Compare to right wrist. There are no comparison examinations available. FINDINGS: FOREARM: AP and lateral views of the left forearm are obtained. The patient is status post resection of the right radial head. There is a small, well corticated periarticular fragment adjacent to the lateral proximal ulna. The elbow is in normal alignment. There is mild spurring posteriorly at the triceps attachment. IMPRESSION IMPRESSION: 1. Status post resection of left radial head. 2. Degenerative changes at the left elbow, as described above. LEFT WRIST FINDINGS: The bones and joints of the left wrist are normal in appearance. There is no evidence of bony abnormality or fracture. FINDINGS FOR RIGHT WRIST: The bones and joints and for the right wrist are normal in appearance. There is no evidence of bony abnormality or fracture. IMPRESSION: Normal right and left wrist. /tns Yusuf IBRAHIM DIAGNOSTIC IMAGI NG ORDERABLES * FOREARM 2 VIEWS (11/04/2001 10:39 EST) Anatomical Region Laterality Modality Other 11/04/2001 10:3 9 EST Narrative 09/03/2009 3:19 EST LT ELBOW/WRIST PAIN OA / COMP RT WRIST Procedure Note Yeny De León Ketan C, PT - 09/03/2009 LT ELBOW/WRIST PAIN OA / COMP RT WRIST Yusuf IBRAHIM DIAGNOSTIC IMAGI NG ORDERABLES * WRIST 2 VIEWS (11/04/2001 10:15 EST) Anatomical Region Laterality Modality Other 11/04/2001 10:1 5 EST Narrative 09/03/2009 3:19 EST LT WRIST PAIN S/P RADIAL HEAD EXCISION OA Procedure Note Yeny De León Ketan C, PT - 09/03/2009 LT WRIST PAIN S/P RADIAL HEAD EXCISION OA Yusuf IBRAHIM DIAGNOSTIC IMAGI NG ORDERABLES documented in this encounter Visit Diagnoses Not on filedocumented in this encounter
--- OUTSIDE RECORDS SUMMARY | 2024-05-28 20:02 | XMS_ITS | Encounter Summary ---
Author Organization [facility] Address [address] [place] [address] Care Team Providers Care Software Release Engineer Name Role Phone None, Provider Primary Care Provider Adelita Jules MD Primary Care Provider [phone] Encounter Details Date Type Department Care Team (Late st Contact Info) Description 10/03/2018 Historical Results Only [facility] [place] Radiology Results [address] [place] [address] Shanel Encarnacion, PILOT PLANT OPERATOR HELPER [address] [place], [place] [id number] Social History Tobacco Use Types Packs/Day Years Used Date Smoking Tobacco: Never Assessed AUDIT-C Answer Date Recorded Frequency of Alcohol Consumption Never 07/05/2019 Average Number of Drinks Not on file 019 Frequency of Binge Drinking Not on file 06/16 Sex and Gender Information Value Date Recorded Sex Assigned at Not on file Gender Identity Not on file Sexual Orientation Not on file documented as of this encounter Plan of Treatment Not on file documented as of this encounter Procedures Procedure Name Priority Date/Time Associated Diagnosis Comments XR HUMERUS LEFT 10/03/2018 17:11 EST XR SHOULDER LEFT 2 OR MORE VIEWS 10/03/2018 17:10 EST documented in this encounter Results * XR HUMERUS LEFT (10/03/2018 17:11 EST) Anatomical Region Laterality Modality Upper Extremities Left Other 10/03/2018 17:1 1 EST Narrative 10/03/2018 17:12 EST ? EXAM: RADIOLOGY/HUMERUS LEFT 2 VIEW ? EX. D/ (1636) ? CLINICAL INFORMATION: ? SLIP/FALL ON ICE, LIMITED ROM (L) ? SHOULDER, DISTAL (L) HUMERUS PAIN ? EXAM: ?XR Left Humerus, 2 or More Views ? EXAM DATE/TIME: ?10/03/2018 3:38 PM ? CLINICAL HISTORY: ?58 years old, male; Injury or trauma; Fall; Initial encounter; ? Swelling (edema); Arm, upper; Left; Additional info: Slip/fall ? on ice, limited rom (l), shoulder, distal (l) humerus pain ? TECHNIQUE: ?XR Left humerus 2 or more views. ? COMPARISON: ?No relevant prior studies available. ? FINDINGS: ?Bones/joints: ??No acute fracture is identified. Impression ? evaluated wrist and elbow joints appear normally aligned. There ? is some chronic appearing deformity of the radial head, ? apparently partially absent, with an adjacent small corticated ? ossific density, suggesting remote injury. ?Soft tissues: ??See Bones/joints Finding. ? IMPRESSION: ? 1. No acute fracture identified. ? 2. Findings suggesting remote injury to the radial head. ? Correlate clinically and consider dedicated imaging. ? REPORT SIGNED IN OTHER VENDOR SYSTEM 10/03/2018 ?Reported By: J Luis Gerber MD ? CC: ? Transcribed Date/Time: 10/03/2018 (171) ? Structural Steel Ironworker: ? Printed Date/Time: 04/06/2019 (0405) ? PAGE 1 ? Signed Report ? Procedure Note J Luis Gerber MD - 08/21/2019 EXAM: RADIOLOGY/HUMERUS LEFT 2 VIEW EX. D/ (1636) CLINICAL INFORMATION: SLIP/FALL ON ICE, LIMITED ROM (L) SHOULDER, DISTAL (L) HUMERUS PAIN EXAM: XR Left Humerus, 2 or More Views EXAM DATE/TIME: 10/03/2018 3:38 PM CLINICAL HISTORY: 58 years old, male; Injury or trauma; Fall; Initial encounter; Swelling (edema); Arm, upper; Left; Additional info: Slip/fall on ice, limited rom (l), shoulder, distal (l) humerus pain TECHNIQUE: XR Left humerus 2 or more views. COMPARISON: No relevant prior studies available. FINDINGS: Bones/joints: No acute fracture is identified. Impression evaluated wrist and elbow joints appear normally aligned. There is some chronic appearing deformity of the radial head, apparently partially absent, with an adjacent small corticated ossific density, suggesting remote injury. Soft tissues: See Bones/joints Finding. IMPRESSION: 1. No acute fracture identified. 2. Findings suggesting remote injury to the radial head. Correlate clinically and consider dedicated imaging. REPORT SIGNED IN OTHER VENDOR SYSTEM 10/03/2018 Reported By: J Luis Gerber MD CC: Transcribed Date/Time: 10/03/2018 (171) Structural Steel Ironworker: Printed Date/Time: 04/06/2019 (1038) PAGE 1 Signed Report Shanel Encarnacion NP IMG DIAGNOSTIC IMAGI NG ORDERABLES * XR SHOULDER LEFT 2 OR MORE VIEWS (10/03/2018 17:10 EST) Anatomical Region Laterality Modality Left Other 10/03/2018 17:1 0 EST Narrative 10/03/2018 17:10 EST ? EXAM: RADIOLOGY/SHOULDER LT 2+VIEWS ? EX. D/ (1636) ? CLINICAL INFORMATION: ? SLIP/FALL ON ICE, LIMITED ROM (L) ? SHOULDER, DISTAL (L) HUMERUS PAIN ? EXAM: ?XR Left Shoulder Complete, 2 or More Views ? EXAM DATE/TIME: ?10/03/2018 3:38 PM ? CLINICAL HISTORY: ?58 years old, male; Injury or trauma; Fall; Initial encounter; ? Swelling (edema); Shoulder; Left; Additional info: Slip/fall on ? ice, limited rom (l), shoulder, distal (l) humerus pain ? TECHNIQUE: ?XR Left shoulder complete 2 or more views. ? COMPARISON: ?No relevant prior studies available. ? FINDINGS: ?Bones/joints: ??No acute fracture or dislocation is identified. ? There is very mild osteophyte formation about the ? acromioclavicular and glenohumeral joints. A small osteophyte ? projects from the undersurface of the acromion. Degenerative ? changes involve the spine. ?Soft tissues: ??The soft tissues appear grossly unremarkable. ? IMPRESSION: ? 1. No acute fracture or dislocation identified. ? 2. Degenerative changes as described. ? REPORT SIGNED IN OTHER VENDOR SYSTEM 10/03/2018 ?Reported By: J Luis Gerber MD ? CC: ? Transcribed Date/Time: 10/03/2018 (7540) ? Structural Steel Ironworker: ? Printed Date/Time: 04/06/2019 (8329) ? PAGE 1 ? Signed Report ? Procedure Note J Luis Gerber MD - 08/21/2019 EXAM: RADIOLOGY/SHOULDER LT 2+VIEWS EX. D/ (0856) CLINICAL INFORMATION: SLIP/FALL ON ICE, LIMITED ROM (L) SHOULDER, DISTAL (L) HUMERUS PAIN EXAM: XR Left Shoulder Complete, 2 or More Views EXAM DATE/TIME: 10/03/2018 3:38 PM CLINICAL HISTORY: 58 years old, male; Injury or trauma; Fall; Initial encounter; Swelling (edema); Shoulder; Left; Additional info: Slip/fall on ice, limited rom (l), shoulder, distal (l) humerus pain TECHNIQUE: XR Left shoulder complete 2 or more views. COMPARISON: No relevant prior studies available. FINDINGS: Bones/joints: No acute fracture or dislocation is identified. There is very mild osteophyte formation about the acromioclavicular and glenohumeral joints. A small osteophyte projects from the undersurface of the acromion. Degenerative changes involve the spine. Soft tissues: The soft tissues appear grossly unremarkable. IMPRESSION: 1. No acute fracture or dislocation identified. 2. Degenerative changes as described. REPORT SIGNED IN OTHER VENDOR SYSTEM 10/03/2018 Reported By: J Luis Gerber MD CC: Transcribed Date/Time: 10/03/2018 (171) Structural Steel Ironworker: Printed Date/Time: 04/06/2019 (3426) PAGE 1 Signed Report Shanel Encarnacion NP IMG DIAGNOSTIC IMAGI NG ORDERABLES documented in this encounter Visit Diagnoses Not on filedocumented in this encounter Care Teams Software Release Engineer Relationship Specialty Start Date End Date None, Provider PCP - General 08/21/15 07/04/19 Adelita Charles MD [address] [place] [phone] PCP - General 07/05/19 documented as of this encounter
--- OUTSIDE RECORDS SUMMARY | 2024-05-28 20:02 | XMS_ITS | Encounter Summary ---
Author Organization [facility] Address [address] [place] [address] Care Team Providers Care Stitcher Utility Name Role Phone None, Provider Primary Care Provider Unavailabl e Encounter Details Date Type Department Care Team (Latest Contact Info) Description 11/03/2015 15:01 EST - 11/03/2015 23:59 EST Hospital Encounter [facility] [address] [place] [address] Unknown, Provider, Discharge Disposition: Home or Self Care Social History Tobacco Use Types Packs/Day Years Used Date Smoking Tobacco: Never Assessed Sex and Gender Information Value Date Recorded Sex Assigned at Not on file Gender Identity Not on file Sexual Orientation Not on file documented as of this encounter Discharge Disposition Disposition Code Departure Means Destination Home or Self Senior Care documented in this encounter Plan of Treatment Not on file documented as of this encounter Visit Diagnoses Not on filedocumented in this encounter Care Teams Stitcher Utility Relationship Specialty Start Date End Date None, Provider PCP - General 08/21/15 07/04/19 documented as of this encounter
--- OUTSIDE RECORDS SUMMARY | 2024-05-28 20:02 | XMS_ITS | Encounter Summary ---
Author Organization [facility] Address [address] [place] [address] Care Team Providers Care Merchandising Internship Name Role Phone Adelita Charles MD Primary Care Provider [phone] Encounter Details Date Type Department Care Team (Late st Contact Info) Description 01/07/2023 Lab Requisition [facility] Pathology & Laboratory Medicine - [facility] [address] [place], [place] [phone] Outr Resulting Lab, Provider Social History Tobacco Use Types Packs/Day Years Used Date Smoking Tobacco: Never Smokeless Tobacco: Never Alcohol Use Standard Drinks/Week Comments Never 0 (1 standard drink = 0.6 oz pur e alcohol) AUDIT-C Answer Date Recorded Frequency of Alcohol Consumption Never 07/05/2019 Average Number of Drinks Not on file 019 Frequency of Binge Drinking Not on file 06/16 PHQ-2 Answer Date Recorded PHQ-2 Score 0 05/16/2020 Interpersonal Safety Answer Date Record ed Physically Hurt Never 05/16/2020 Verbally Threaten Not on file 05/16/2020 Sex and Gender Information Value Date Recorded Sex Assigned at Not on file Gender Identity Not on file Sexual Orientation Not on file documented as of this encounter Plan of Treatment Not on file documented as of this encounter Procedures Procedure Name Priority Date/Time Associated Diagnosis Comments FECAL BACTERIAL PATHOGENS BY PCR Routine 01/07/2023 8:00 EDT documented in this encounter Results * FECAL BACTERIAL PATHOGENS BY PCR (01/07/2023 8:00 EDT) Salmonella PCR Negative Negative 01/07/2023 19:31 EDT [facility] Shigella/Enteroin vasive E. coli Negative Negative 01/07/2023 19:31 EDT [facility] HN LAB CAMPYLOBACTER PCR Negative Negative 01/07/2023 19:31 EDT [facility] Shiga Toxin PCR Negative Negative 19:31 EDT [facility] Feces SPECIMEN FROM RECTUM / Unknown 01/07/2023 8:00 EDT 01/07/2023 15:40 EDT Provider Outr Resulting Lab MICROBIOLOGY - GENERAL ORDERABLES Performing Organization Address City/State/[facility] Co de Phone Number [facility] [address] [place] [address] documented in this encounter Visit Diagnoses Not on filedocumented in this encounter Care Teams Merchandising Internship Relationship Specialty Start Date End Date Adelita hCarles MD [address] [place] [phone] PCP - General 07/05/19 documented as of this encounter
--- OUTSIDE RECORDS SUMMARY | 2024-05-28 20:02 | XMS_ITS ---
Author Organization Unknown Address [address] [place] [phone] Phone Care Team Providers Care Development Analyst Name Role Phone MIGUEL LAUREEN Chito Attending Unavailable Social History Type Status Start Date End Date Code Code Syst em Smoking History Former smoker 6697029 SNOMED CT Sex Male Assessment You had the following problems:ACUTE APPENDICITIS NOSDIABETES WO COMP TYPE 2 UNSPECIFIEDOBSTRUCTIVE SLEEP APNEAABDOMINAL PAINENTEROCOLITISGOUT Hospital Discharge Instructions Should you have any questions prior to discharge, please contact a member of your healthcare team. If you have left the hospital and have any questions, please contact your primary care physician. Reason For Referral No Data Found Problems Problem Start Date Resolved Date Status Code Code System ACUTE APPENDICITIS NOS active SNOMED-CT DIABETES WO COMP TYPE 2 UNSPECIFIED active SNOMED-CT OBSTRUCTIVE SLEEP APNEA active SNOMED-CT ABDOMINAL PAIN active 02486745 SNOME D-CT ENTEROCOLITIS active 47815098 SNOMED -CT GOUT active 20121003 SNOMED-CT DIABETES 2 01/06/2023 resolved 64815439 SNOMED-C T HIGH BLOOD PRESSURE 01/06/2023 resolved 30009688 SNOMED-CT Allergies and Adverse Reactions Allergy Substance Reaction Severity Start Date Concern Status Co de Code System NORVASC Itching (SNOMED-CT: 748092410) Active 97844 RxNorm Plan of Treatment PRE-OP COVID-19 TESTING 04/10/2022 PRE-OP COVID-19 TESTING 12/28/2021 Encounters Encounter Diagnosis Start Date Code Code Sys tem Calculus of gallbladder with chronic cholecystitis without obstruction 07/11/2023 SNOMED-CT Personal Care Team Section Performer Name Performer Role Active Date Inactive Da te
--- OUTSIDE RECORDS SUMMARY | 2024-05-28 20:02 | XMS_ITS | Clinical Summary ---
Author Organization [facility] Address [address] [place] [address] Care Team Providers Care Medical Doctor Name Role Phone Adelita Charles MD Primary Care Provider [phone] Allergies No known active allergies Medications Medication Sig Dispensed Refills Start Date End Date Status allopurinol (ZYLOPRIM) 100 mg tablet Take 300 mg by mouth daily. Active aspirin chewable 81 mg tablet Take 81 mg by mouth daily. Active losartan (COZAAR) 50 mg tablet Take 50 mg by mouth daily. Active metFORMIN (GLUCOPHAGE) 500 mg tablet Take 1,000 mg by mouth 2 times daily. Active hydrOXYzine (ATARAX) 25 mg tablet Take 25 mg by mouth every 8 hours as needed for Itching. Active SITagliptin (JANUVIA) 50 mg tablet Take 50 mg by mouth daily. Active omeprazole (PRILOSEC) 20 mg capsule Take 20 mg by mouth 2 times daily. Active potassium chloride SA (K-DUR) 10 mEq tablet Take 10 mEq by mouth daily. Active Surgical History Surgery Date Site/Laterality Comments ORTHOPEDIC SURGERY APPENDECTOMY Medical History Medical History Date Comments Diabetes mellitus ([facility]) Hypertension Gout Social History Tobacco Use Types Packs/Day Years [...] on file Sexual Orientation Not on file Obstetrics History Last Filed Vital Signs Vital Sign Reading Time Taken Comments Blood Pressure 147/81 07/05/201920 EDT Pulse 71 07/05/201920 EDT Temperature 36.9 ??C (98.4 ??F) 07/05/201920 EDT Respiratory Rate 18 07/05/201920 EDT Oxygen Saturation 98% 07/05/201920 EDT Inhaled Oxygen Concentration - - Weight 108.9 kg (240 lb) 07/05/201920 EDT Height 180.3 cm (5' 11) 07/05/201920 EDT Body Mass Index 33.47 07/05/201920 EDT Plan of Treatment Health Maintenance Due Date Last Done Comments Hepatitis C Screen 1960 RSV Immunization ( o r 60+ Years) (1 - 1-dose 60+ series) 2020 COVID-19 Vaccine (2022-24 season) 2023 Care Teams Medical Doctor Relationship Specialty Start Date End Date Adelita Charles MD [address] [place] [phone] PCP - General 07/05/19
--- OUTSIDE RECORDS SUMMARY | 2024-05-28 20:02 | XMS_ITS ---
Author Organization Unknown Address [address] [place] [phone] Phone Care Team Providers Care Embroiderer Name Role Phone SLOANE Dale Primary Unavailable [facility] [place] ect Date/Time: 12/28/2021 15:41 [facility] ID: [id number] [address] [place] [address], [id number] LOINC: 70756-9 Test Value Unit Reference Range Code Code System Flag Tier- PRE-OP 52516-9 LOINC SARS COV2 RNA: NEGATIVE REFERENCE RANGE: NEGAT 51914-3 L OINC Social History Type Status Start Date End Date Code Code Syst em Smoking History Former smoker 9531173 SNOMED CT Sex Male Assessment You had [...] SLEEP APNEA active SNOMED-CT ABDOMINAL PAIN active 82245531 SNOME D-CT ENTEROCOLITIS active 90147188 SNOMED -CT GOUT active 07877445 SNOMED-CT DIABETES 2 01/06/2023 resolved 16186207 SNOMED-C T HIGH BLOOD PRESSURE 01/06/2023 resolved 46921162 SNOMED-CT Allergies and Adverse Reactions Allergy Substance Reaction Severity Start Date Concern Status Co de Code System NORVASC Itching (SNOMED-CT: 729146260) Active 97990 RxNorm Plan of Treatment PRE-OP COVID-19 TESTING 04/10/2022 PRE-OP COVID-19 TESTING 12/28/2021 Encounters Encounter Diagnosis Start Date Code Code Sys tem Pre-surgery testing 12/28/2021 108759027 SNOMED-C T Personal Care Team Section Performer Name Performer Role Active Date Inactive Edgar marquez
--- OUTSIDE RECORDS SUMMARY | 2024-05-28 20:02 | XMS_ITS ---
Author Organization Unknown Address [address] [place] [phone] Phone Care Team Providers Care Post Closer Name Role Phone LINK Valdez Attending Unavailable ETHAN NITESH Chito Primary Unavailable Social History Type Status Start Date End Date Code Code Syst em Smoking History Former smoker 5538209 SNOMED CT Sex Male Assessment You had [...] SLEEP APNEA active SNOMED-CT ABDOMINAL PAIN active 01899398 SNOME D-CT ENTEROCOLITIS active 96537070 SNOMED -CT GOUT active 52357543 SNOMED-CT DIABETES 2 01/06/2023 resolved 34128561 SNOMED-C T HIGH BLOOD PRESSURE 01/06/2023 resolved 14998772 SNOMED-CT Allergies and Adverse Reactions Allergy Substance Reaction Severity Start Date Concern Status Co de Code System NORVASC Itching (SNOMED-CT: 249155516) Active 18074 RxNorm Plan of Treatment PRE-OP COVID-19 TESTING 04/10/2022 PRE-OP COVID-19 TESTING 12/28/2021 Encounters Encounter Diagnosis Start Date Code Code Sys tem Aftercare following joint replacement surgery 05/05/20 SNOMED-CT Personal Care Team Section Performer Name Performer Role Active Date Inactive Da te
--- OUTSIDE RECORDS SUMMARY | 2024-05-28 20:02 | XMS_ITS | Encounter Summary ---
Author Organization [facility] Address [address] [place] [address] Care Team Providers Care Desktop Support Consultant Name Role Phone None, Provider Primary Care Provider Adelita Jules MD Primary Care Provider [phone] Encounter Details Date Type Department Care Team (Late st Contact Info) Description 10/30/2018 Historical Results [facility] Radiology Results [address] [place], [place] [id number] Jeremy Hunt PA [address] [place], [place] [phone] Social History Tobacco Use Types Packs/Day Years [...] Procedure Name Priority Date/Time Associated Diagnosis Comments MR SHOULDER WO CONTRAST LEFT 10/30/2018 8:45 EST documented in this encounter Results * MR SHOULDER WO CONTRAST LEFT (10/30/2018 8:45 EST) Anatomical Region Laterality Modality Upper Extremities Left Other 10/30/2018 8:45 EST Narrative 10/30/2018 8:48 EST ? EXAM: MAGNETIC RESONANCE IMAGING/SHOULDER EX. D/ (0659) ? CLINICAL INFORMATION: ? S46.912AM S40.019A, S40.029A ? LEFT ARM PAIN, CONTUSION LEFT ARM AND SHOULDER ? R/O INTERNAL DERANGEMENT LEFT SHOULDER ? SIGNS AND SYMPTOMS: S46.912AM S40.019A, S40.029A, LEFT ARM PAIN, ? CONTUSION LEFT ARM AND SHOULDER, R/O INTERNAL DERANGEMENT LEFT ? SHOULDER ? COMPARISON: Left shoulder radiograph 10/03/2018. ? TECHNIQUE: Multiplanar multisequence MRI of the left shoulder was ? performed without contrast. ? FINDINGS: ? Rotator Cuff: ? Supraspinatus: Complete rupture of the distal supraspinatus tendon ? from its greater tuberosity attachment. The ruptured tendon free edge ? is swollen and frayed and retracted approximately 3.5 cm. No atrophy ? or fatty infiltration of the supraspinatus muscle is present. ? Infraspinatus: The infraspinatus tendon is ruptured from its greater ? tuberosity attachment and retracted to the level of the glenohumeral ? joint space. Hemorrhage and/or edema tracks into the infraspinatus ? muscle and musculotendinous junction. ? Teres minor: The teres minor tendon is intact. No atrophy or fatty ? infiltration of the teres minor muscle is present ? Subscapularis: The subscapularis tendon is intact. No atrophy or ? fatty infiltration of the subscapularis muscle is present. ? Long head biceps tendon: The long of the biceps tendon is intact and ? normally positioned within the bicipital groove. ? Glenoid labrum: No labral tear is identified. ? Cartilage: The articular cartilage of the glenohumeral joint is ? unremarkable. ? Joint space: Small glenohumeral joint effusion. ? Acromioclavicular joint: Mild to moderate hypertrophic arthritis of ? the acromioclavicular joint. ? Bone marrow: Minimal bone marrow edema signal at the greater ? tuberosity attachment of the infraspinatus likely secondary to ? changes related to chronic rotator cuff tendinopathy. ? Subacromial-subdeltoid bursa: Obliteration of the ? subacromial-subdeltoid space with synovial fluid within the ? subacromial subdeltoid bursa. ? PAGE 1 ? Signed Report ? (CONTINUED) ? IMPRESSION: ? 1. Full-thickness rupture of the supraspinatus and infraspinatus ? tendons with retraction to the level of the glenohumeral joint. ? 2. Hypertrophic arthritis of the acromioclavicular joint ? REPORT SIGNED IN OTHER VENDOR SYSTEM 10/30/2018 ?Reported By: Vicente Wallace MD ? CC: ? Transcribed Date/Time: 10/30/2018 (0848) ? Assistant Strength Coach: ? Printed Date/Time: 04/06/2019 (1452) ? PAGE 2 ? Signed Report ? Procedure Note Vicente Wallace MD - 08/21/2019 EXAM: MAGNETIC RESONANCE IMAGING/SHOULDER EX. D/ (0659) CLINICAL INFORMATION: S46.912AM S40.019A, S40.029A LEFT ARM PAIN, CONTUSION LEFT ARM AND SHOULDER R/O INTERNAL DERANGEMENT LEFT SHOULDER SIGNS AND SYMPTOMS: S46.912AM S40.019A, S40.029A, LEFT ARM PAIN, CONTUSION LEFT ARM AND SHOULDER, R/O INTERNAL DERANGEMENT LEFT SHOULDER COMPARISON: Left shoulder radiograph 10/03/2018. TECHNIQUE: Multiplanar multisequence MRI of the left shoulder was performed without contrast. FINDINGS: Rotator Cuff: Supraspinatus: Complete rupture of the distal supraspinatus tendon from its greater tuberosity attachment. The ruptured tendon freeedge is swollen and frayed and retracted approximately 3.5 cm. Noatrophy or fatty infiltration of the supraspinatus muscle is present. Infraspinatus: The infraspinatus tendon is ruptured from itsgreater tuberosity attachment and retracted to the level of theglenohumeral joint space. Hemorrhage and/or edema tracks into the infraspinatus muscle and musculotendinous junction. Teres minor: The teres minor tendon is intact. No atrophy or fatty infiltration of the teres minor muscle is present Subscapularis: The subscapularis tendon is intact. No atrophy or fatty infiltration of the subscapularis muscle is present. Long head biceps tendon: The long of the biceps tendon is intactand normally positioned within the bicipital groove. Glenoid labrum: No labral tear is identified. Cartilage: The articular cartilage of the glenohumeral joint is unremarkable. Joint space: Small glenohumeral joint effusion. Acromioclavicular joint: Mild to moderate hypertrophic arthritis of the acromioclavicular joint. Bone marrow: Minimal bone marrow edema signal at the greater tuberosity attachment of the infraspinatus likely secondary to changes related to chronic rotator cuff tendinopathy. Subacromial-subdeltoid bursa: Obliteration of the subacromial-subdeltoid space with synovial fluid within the subacromial subdeltoid bursa. PAGE 1 Signed Report (CONTINUED) IMPRESSION: 1. Full-thickness rupture of the supraspinatus and infraspinatus tendons with retraction to the level of the glenohumeral joint. 2. Hypertrophic arthritis of the acromioclavicular joint REPORT SIGNED IN OTHER VENDOR SYSTEM 10/30/2018 Reported By: Vicente Wallace MD CC: Transcribed Date/Time: 10/30/2018 (0848) Assistant Strength Coach: Printed Date/Time: 04/06/2019 (7207) PAGE 2 Signed Report Jeremy CHANCE IMG MRI ORDERABLES documented in this encounter Visit Diagnoses Not on filedocumented in this encounter Care Teams Desktop Support Consultant Relationship Specialty Start Date End Date None, Provider PCP - General 08/21/15 07/04/19 Adelita Charles MD [address] [place] [phone] PCP - General 07/05/19 documented as of this encounter
--- OUTSIDE RECORDS SUMMARY | 2024-05-28 20:02 | XMS_ITS | Referral Summary ---
Author Organization Health system Address [address] [place] [address] Care Team Providers Care Dry End Operator Name Role Phone Adelita Charles MD Primary Care Provider [phone] Allergies No known active allergies Medications Medication [...] Take 10 mEq by mouth daily. Active Social History Tobacco Use Types Packs/Day Years [...] on file Sexual Orientation Not on file Last Filed Vital Signs Vital Sign Reading [...] Index 33.47 07/05/201920 EDT Plan of Treatment Not on file Care Teams Dry End Operator Relationship Specialty Start Date End Date Adelita Charles MD [address] [place] [phone] PCP - General 07/05/19
--- OUTSIDE RECORDS SUMMARY | 2024-05-28 20:02 | XMS_ITS | Encounter Summary ---
Author Organization [facility] Address [address] [place] [address] Care Team Providers Care After School Program Assistant Name Role Phone None, Provider Primary Care Provider Unavailabl e Encounter Details Date Type Department Care Team (Latest Contact Info) Description 10/02/2017 19:33 EST - 10/02/2017 23:59 EST Hospital Encounter [address] [address] Unknown, Provider, Discharge Disposition: Home or Self Care Social History Tobacco Use Types Packs/Day Years Used Date Smoking Tobacco: Never Assessed Sex and Gender Information Value Date Recorded Sex Assigned at Not on file Gender Identity Not on file Sexual Orientation Not on file documented as of this encounter Discharge Disposition Disposition Code Departure Means Destination Home or Self Nursing Home documented in this encounter Plan of Treatment Not on file documented as of this encounter Visit Diagnoses Not on filedocumented in this encounter Care Teams After School Program Assistant Relationship Specialty Start Date End Date None, Provider PCP - General 08/21/15 07/04/19 documented as of this encounter
--- OUTSIDE RECORDS SUMMARY | 2024-05-28 20:02 | XMS_ITS | Encounter Summary ---
Author Organization [facility] Address [address] [place] [address] Care Team Providers Care Event Marketing Intern Name Role Phone Adelita Charles MD Primary Care Provider [phone] Encounter Details Date Type Department Care Team (Latest Contact Info) Description 07/05/2019 Travel Social History Tobacco Use Types Packs/Day Years [...] on filedocumented in this encounter Care Teams Event Marketing Intern Relationship Specialty Start Date End Date Adelita Charles MD [address] [place] [phone] PCP - General 07/05/19 documented as of this encounter
--- OUTSIDE RECORDS SUMMARY | 2024-05-28 20:02 | XMS_ITS ---
Author Organization Unknown Address [address] [place] [phone] Phone Care Team Providers Care Electric Motor Repairing Supervisor Name Role Phone LINK Valdez Attending Unavailable ETHAN Dale Primary Unavailable [facility] [place] [facility] Date/Time: 04/10/2022 09:51 [facility] ID: [id number] [address] [place] [address], [id number] LOINC: 29916-4 Test Value Unit Reference Range Code Code System Flag Tier- PRE-OP 06326-4 LOINC SARS COV2 RNA: NEGATIVE REFERENCE RANGE: NEGAT 08432-7 L OINC Social History Type Status Start Date End Date Code Code Syst em Smoking History Former smoker 3764996 SNOMED CT Sex Male Assessment You had [...] SLEEP APNEA active SNOMED-CT ABDOMINAL PAIN active 85050585 SNOME D-CT ENTEROCOLITIS active 83752325 SNOMED -CT GOUT active 91962970 SNOMED-CT DIABETES 2 01/06/2023 resolved 14976340 SNOMED-C T HIGH BLOOD PRESSURE 01/06/2023 resolved 37411852 SNOMED-CT Allergies and Adverse Reactions Allergy Substance Reaction Severity Start Date Concern Status Co de Code System NORVASC Itching (SNOMED-CT: 084786485) Active 71615 RxNorm Plan of Treatment PRE-OP COVID-19 TESTING 04/10/2022 PRE-OP COVID-19 TESTING 12/28/2021 Encounters Encounter Diagnosis Start Date Code Code Sys tem Pre-surgery testing 04/10/2022 255204091 SNOMED-C T Personal Care Team Section Performer Name Performer Role Active Date Inactive Da jimmy
--- OUTSIDE RECORDS SUMMARY | 2024-05-28 20:02 | XMS_ITS | Encounter Summary ---
Author Organization [facility] Address [address] [place] [address] Care Team Providers Care Road Machine Runner Name Role Phone Unavailable Primary Care Provider Unavailabl e Encounter Details Date Type Department Care Team (Latest Contact Info) Description 01/10/2001 12:10 EST Hospital Encounter [facility] [address] [place] [address] Angelica Chavira MD [address] [place] [address] [place] [phone] Discharge Disposition: Auto Discharge Social History Tobacco [...] Name Priority Date/Time Associated Diagnosis Comments MR EXTREMITY WRIST WO CONTRAST Routine 01/10/2001 14:53 EST documented in this encounter Results * MR EXTREMITY WRIST WO CONTRAST (01/10/2001 14:53 EST) Anatomical Region Laterality Modality Other 01/10/2001 14:5 3 EST Impressions 08/25/2009 1:35 EST IMPRESSION: 1. Small elbow joint effusion. 2. Residual deformity of the radial head post fracture with minimal cortical step off. 3. 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 4. No loose bodies seen. /sandy Narrative 08/25/2009 1:35 EST LT WRIST PAIN,S/P RADIAL HEAD FRACTURE R/O LOOSE BODIES MR OF LEFT ELBOW 01/10/01 12:00 HISTORY: Status post radial head fracture. TECHNIQUE: Axial T1 weighted, axial T2 weighted fat suppressed, coronal T2 weighted fat suppressed, sagittal T2 weighted fat suppressed, and sagittal proton density weighted images of the left elbow were obtained. FINDINGS: There is a small effusion of the elbow joint. Some residual deformity of the radial head with minimal cortical step off. 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 No loose bodies are identified. The study is otherwise unremarkable. Procedure Note Geovani Springer MD / Vicente Wallace MD - 08/25/2009 LT WRIST PAIN,S/P RADIAL HEAD FRACTURE R/O LOOSE BODIES MR OF LEFT ELBOW 01/10/01 12:00 HISTORY: Status post radial head fracture. TECHNIQUE: Axial T1 weighted, axial T2 weighted fat suppressed, coronal T2 weighted fat suppressed, sagittal T2 weighted fat suppressed, and sagittal proton density weighted images of the left elbow were obtained. FINDINGS: There is a small effusion of the elbow joint. Some residual deformity of the radial head with minimal cortical step off. 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 No loose bodies are identified. The study is otherwise unremarkable. IMPRESSION IMPRESSION: 1. Small elbow joint effusion. 2. Residual deformity of the radial head post fracture with minimal cortical step off. 3. 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 4. No loose bodies seen. /sandy S Aurelio Chavira MD IMG MRI ORDERABLES documented in this encounter Visit Diagnoses Not on filedocumented in this encounter
--- OUTSIDE RECORDS SUMMARY | 2024-05-28 20:02 | XMS_ITS | Encounter Summary ---
Author Organization [facility] Address [address] [place] [address] Care Team Providers Care Director Of Elementary Education Name Role Phone Adelita Charles MD Primary Care Provider [phone] Encounter Details Date Type Department Care Team (Late st Contact Info) Description 01/07/2023 Lab Requisition [facility] Pathology & Laboratory Medicine - [facility] [address] [place], [place] [address] Outr Resulting Lab, Provider Social History Tobacco [...] Procedure Name Priority Date/Time Associated Diagnosis Comments GIARDIA AND CRYPTOSPORIDIUM ANTIGENS Routine 01/07/2023 8:00 EDT documented in this encounter Results * GIARDIA AND CRYPTOSPORIDIUM ANTIGENS (01/07/2023 8:00 EDT) Giardia and Cryptosporidium Cryptosporidium Antigen Neg and Giardia Antigen Neg Cryptosporidium Antigen Neg and Giardia Antigen Neg 3 10:[address] [facility] Feces SPECIMEN FROM RECTUM / Unknown 01/07/2023 8:00 EDT 01/07/2023 15:40 EDT Provider Outr Resulting Lab MICROBIOLOGY - GENERAL ORDERABLES Performing Organization Address City/State/[facility] Co de Phone Number [facility] [address] [place] [address] documented in this encounter Visit Diagnoses Not on filedocumented in this encounter Care Teams Director Of Elementary Education Relationship Specialty Start Date End Date Adelita Charles MD [address] [place] [phone] PCP - General 07/05/19 documented as of this encounter
--- OUTSIDE RECORDS SUMMARY | 2024-05-28 20:02 | XMS_ITS ---
Author Organization Unknown Address [address] [place] [phone] Phone Care Team Providers Care Oxide Furnace Tender Name Role Phone TOBI Montejo Attending Unavailable ETHAN Dale Primary Unavailable Social History Type Status Start Date End Date Code Code Syst em Smoking History Former smoker 5179713 SNOMED CT Sex Male Assessment You had [...] SLEEP APNEA active SNOMED-CT ABDOMINAL PAIN active 65734991 SNOME D-CT ENTEROCOLITIS active 27631836 SNOMED -CT GOUT active 93264688 SNOMED-CT DIABETES 2 01/06/2023 resolved 38320944 SNOMED-C T HIGH BLOOD PRESSURE 01/06/2023 resolved 12427299 SNOMED-CT Allergies and Adverse Reactions Allergy Substance Reaction Severity Start Date Concern Status Co de Code System NORVASC Itching (SNOMED-CT: 749504641) Active 76157 RxNorm Plan of Treatment PRE-OP COVID-19 TESTING 04/10/2022 PRE-OP COVID-19 TESTING 12/28/2021 Encounters Encounter Diagnosis Start Date Code Code Sys tem Disorder of joint of ankle and/or foot 03/26/2023 44 9094369 SNOMED-CT Personal Care Team Section Performer Name Performer Role Active Date Inactive Da te
--- OUTSIDE RECORDS SUMMARY | 2024-05-28 20:02 | XMS_ITS | Encounter Summary ---
Author Organization [facility] Address [address] [place] [address] Care Team Providers Care Staff Submarine Warfare Officer Name Role Phone Adelita Charles MD Primary Care Provider [phone] Reason for Visit * (Routine) - Receiving Office to Obtain Authorization Specialty Diagnoses / Procedures Referred By Contac t Referred To Contact Procedures MR OUTSIDE IMAGES NEURO Unknown, Provider, Referral ID Status Reason Start Date Expiration Date Visits Requested Visits Authorized [id number] Receiving Office to Obtain Authorization 03/05/2020 1 1 Encounter Details Date Type Department Care Team (Latest Contact Info) Description 02/11/2020 - 02/11/2020 23:59 EDT Hospital Encounter [facility] Radiology - [place] [address] [place], [place] [phone] Discharge Disposition: Home or Self Care Social [...] on file documented as of this encounter Medications at Time of Discharge Medication Sig Dispensed Refills Start Date End Date allopurinol (ZYLOPRIM) 100 mg tablet Take 300 mg by mouth daily. aspirin chewable 81 mg tablet Take 81 mg by mouth daily. hydrOXYzine (ATARAX) 25 mg tablet Take 25 mg by mouth every 8 hours as needed for Itching. losartan (COZAAR) 50 mg tablet Take 50 mg by mouth daily. metFORMIN (GLUCOPHAGE) 500 mg tablet Take 1,000 mg by mouth 2 times daily. omeprazole (PRILOSEC) 20 mg capsule Take 20 mg by mouth 2 times daily. potassium chloride SA (K-DUR) 10 mEq tablet Take 10 mEq by mouth daily. SITagliptin (JANUVIA) 50 mg tablet Take 50 mg by mouth daily. documented as of this encounter Discharge Disposition Disposition Code Departure Means Destination Home or Self Care documented in this encounter Plan of Treatment Not on file documented as of this encounter Procedures Procedure Name Priority Date/Time Associated Diagnosis Comments MR OUTSIDE IMAGES NEURO Routine 03/05/2020 13:39 EDT documented in this encounter Results * MR OUTSIDE IMAGES NEURO (03/05/2020 13:39 EDT) Narrative BRUCE - 03/05/2020 13:40 EDT This is a non-reportable exam. Physician Wind Energy Project Manager Mary Lou CHANCE IMG OTHER IMAG ING ORDERABLES BJ documented in this encounter Visit Diagnoses Not on filedocumented in this encounter Care Teams Staff Submarine Warfare Officer Relationship Specialty Start Date End Date Adelita Charles MD [address] [place] [phone] PCP - General 07/05/19 documented as of this encounter
--- OUTSIDE RECORDS SUMMARY | 2024-05-28 20:02 | XMS_ITS | Encounter Summary ---
Author Organization [facility] Address [address] [place] [address] Care Team Providers Care Express Manager Name Role Phone None, Provider Primary Care Provider Unavailabl e Encounter Details Date Type Department Care Team (Latest Contact Info) Description 10/03/2018 8:53 EST - 10/03/2018 23:59 EST Hospital Encounter [facility] [address] [place] [address] Unknown, Provider, Discharge Disposition: Home or Self Care Social History Tobacco Use Types Packs/Day Years Used Date Smoking Tobacco: Never Assessed Sex and Gender Information Value Date Recorded Sex Assigned at Not on file Gender Identity Not on file Sexual Orientation Not on file documented as of this encounter Discharge Disposition Disposition Code Departure Means Destination Home or Self [place] documented in this encounter Plan of Treatment Not on file documented as of this encounter Visit Diagnoses Not on filedocumented in this encounter Care Teams Express Manager Relationship Specialty Start Date End Date None, Provider PCP - General 08/21/15 07/04/19 documented as of this encounter
--- OUTSIDE RECORDS SUMMARY | 2024-05-28 20:02 | XMS_ITS ---
Author Organization Unknown Address [address] [place] [phone] Phone Care Team Providers Care Industrial Energy Engineer Name Role Phone SLOANE FARLEY Attending Mirna Dale Primary Unavailable Results XR FLUOROGUIDE FOR SPINE INJ ECT - Completed: 12/30/2021 13:55 LOINC: FLUOROSCOPY:Supervised fluor oscopy was provided during Pain Management therapy performed by Dr. Westbrook. See Procedure Report for details. Total fluoro time 6.8 sec/Cumulative dose 4.12 mGy Dictated by: HN BRINA ESPARZA MD Transcribed by: JOHANNA 12/30/21/11:17 D Thursday, December 30, 2021 9:31:10 AM [id number] Electronically Reviewed and Signed By: BRINA ESPARZA MD 12/30/21 19:06 Copy for: SLOANE FARLEY via link Copy for: 185 HEALTH INFORMATION MGMT DISCHARGED Social History Type Status Start Date End Date Code Code Syst em Smoking History Former smoker 2782395 SNOMED CT Sex Male Assessment You had the following problems:ACUTE APPENDICITIS NOSDIABETES WO COMP TYPE 2 UNSPECIFIEDOBSTRUCTIVE SLEEP APNEAABDOMINAL PAINENTEROCOLITISGOUT Hospital Discharge Instructions Should you have any questions prior to discharge, please contact a member of your healthcare team. If you have left the hospital and have any questions, please contact your primary care physician. Reason For Referral No Data Found Procedures Procedure Name Date Status Code Code Syste m Injection, Diagnostic/Therap eutic, Paravertebral Facet Joint, Lumbar Or Sacral; Single Level 12/30/2021 completed 03236 CPT Injection, Diagnostic/Therap eutic, Paravertebral Facet Joint, Lumbar Or Sacral; Second Level 12/30/2021 completed 80901 CPT Problems Problem Start Date Resolved Date Status Code Code System ACUTE APPENDICITIS NOS active SNOMED-CT DIABETES WO COMP TYPE 2 UNSPECIFIED active SNOMED-CT OBSTRUCTIVE SLEEP APNEA active SNOMED-CT ABDOMINAL PAIN active 77254305 SNOME D-CT ENTEROCOLITIS active 15826777 SNOMED -CT GOUT active 42712625 SNOMED-CT DIABETES 2 01/06/2023 resolved 67673311 SNOMED-C T HIGH BLOOD PRESSURE 01/06/2023 resolved 76211608 SNOMED-CT Allergies and Adverse Reactions Allergy Substance Reaction Severity Start Date Concern Status Co de Code System NORVASC Itching (SNOMED-CT: 798336852) Active 39688 RxNorm Plan of Treatment PRE-OP COVID-19 TESTING 04/10/2022 PRE-OP COVID-19 TESTING 12/28/2021 Encounters Encounter Diagnosis Start Date Code Code Sys tem Spondylosis without myelopat hy or radiculopathy, lumbosacral region 12/30/2021 SNOMED-CT Personal Care Team Section Performer Name Performer Role Active Date Inactive Da jimmy
--- OUTSIDE RECORDS SUMMARY | 2024-05-28 20:02 | XMS_ITS ---
Author Organization Unknown Address [address] [place] [phone] Phone Care Team Providers Care Insurance Loss Control Surveyor Name Role Phone SARA BIGGS Registered Nurse Unavailable TALAT Hooks Attending Unavailable WIL[facility] Unavailable ETHAN Dale Primary Unavailable UNLISTED PROVIDER - REQUESTED Xhandoff Un available Results CLOSTRIDIUM DIFFICILE BY PCR * - Collect Date/Time: 01/07/2023 08:00 [facility] ID: [id number] [address] [place] [address], [id number] LOINC: 90836-3 Test Value Unit Reference Range Code Code System Flag Consistency = WATERY 35080-3 LOINC C. DIFFICILE DNA NEGATIVE Normal: Negative 03961-2 LOINC LACTOFERRIN DETECTION STOOL - Collect Date/Time: 01/07/2023 08:00 [facility] ID: [id number] [address] [place] [address], [id number] LOINC: 90983-1 Test Value Unit Reference Range Code Code System Flag Consistency: WATERY Lactoferrin stool POSITIVE OVA AND PARASITES - COMPLETE * - Collect Date/Time: 01/07/2023 08:00 [facility] ID: [id number] [address] [place] [address], [phone] LOINC: 97933-1 Test Value Unit Reference Range Code Code System Flag Parasite Growth No ova and parasites seen. FECAL BACTERIAL PATHOGENS BY PCR - Collect Date/Time: 01/07/2023 08:00 [facility] ID: [id number] [address] [place] [address], [id number] LOINC: Test Value Unit Reference Range Code Code System Flag Salmonella PCR Negative Negative Shigella PCR Negative Negative Campylobacter PCR Negative Negative Shiga Toxin PCR Negative Negative URINALYSIS WITH REFLEX CULT IF POSITIVE* - Collect Date/Time: 01/06/2023 16:43 [facility] ID: [id number] [address] [place] [address], 5661 LOINC: 01303-8 Test Value Unit Reference Range Code Code System Flag COLLECTION MODE: CLEAN CATCH 81183-5 LOINC Color YELLOW yellow 5778-6 LOINC Appearance CLEAR clear 5767-9 LOINC Glucose urine NEGATIVE negative mg/dl 77634-2 LOINC Bilirubin NEGATIVE negative 5770-3 LOINC Ketones NEGATIVE negative mg/dl 2514-8 LOINC Spec gravity 1.020 1.003 - 1.030 5811-5 LOINC pH urine 6.0 5.0 - 7.0 2756-5 LOINC Protein TRACE negative mg/dl 88701-5 LOINC Urobilinogen 0.2 <or= 1 EU/dl 47834-6 LOINC Nitrite. NEGATIVE negative 5802-4 LOINC Blood NEGATIVE negative 5794-3 LOINC Leukocytes. NEGATIVE negative MICROSCOPIC NOT INDICAT LIPASE* NEW - Collect Date/T byron: 01/06/2023 16:15 [facility] ID: [id number] [address] [place] [address], [phone] LOINC: 3040-3 Test Value Unit Reference Range Code Code System Flag LIPASE. 81 U/L L=16 H=77 HH COMPREHENSIVE METABOLIC PANE L (CMP) - Collect Date/Time: 01/06/2023 16:15 [facility] ID: [id number] [address] [place] [address], 5661 LOINC: 97496-4 Test Value Unit Reference Range Code Code System Flag GLUCOSE 126 mg/dL L=70 H=116 2345-7 LOINC H BUN 45 mg/dL L=6 H=25 3094-0 LOINC H CREATININE 1.53 mg/dL L=0.67 H=1.17 2160-0 LOINC H SODIUM SERUM 132 mmol/L L=136 H=145 2951-2 LOINC L POTASSIUM SERUM 3.5 mmol/L L=3.4 H=5.2 2823-3 LOINC CHLORIDE SERUM 94 mmol/L L=96 H=110 2075-0 LOINC L CARBON DIOXIDE (CO2) 27 mmol/L L=22 H=34 2028-9 LOINC ANION GAP 11.2 mmol/L 90192-6 LOINC CALCIUM SERUM 8.6 mg/dL L=8.2 H=10.2 27958-6 LOINC BILIRUBIN TOTAL 0.8 mg/dL L=0.0 H=1.3 1975-2 LOINC ALK. PHOS. 63 U/L L=46 H=116 6768-6 LOINC SGOT (AST) 88 U/L L=15 H=37 1920-8 LOINC H SGPT (ALT) 86 U/L L=12 H=78 1742-6 LOINC H TOTAL PROTEIN 7.9 gm/dL L=6.0 H=8.0 2885-2 LOINC ALBUMIN 3.9 gm/dL L=3.4 H=5.0 1751-7 LOINC AGE 62 years eGFR (non-Afr.Amer.) 46 mL/min 69714-3 LOINC eGFR (Afr-Cymro) 56 mL/min 07995-4 LOINC CBC W/ DIFFERENTIAL* - Colle ct Date/Time: 01/06/2023 16:15 [facility] ID: [id number] [address] [place], [place], [address] LOINC: 02515-0 Test Value Unit Reference Range Code Code System Flag WBC 4.01 th/cmm L=5.00 H=10.00 6690-2 LOINC L NEUT % 46.8 % L=40.0 H=80.0 LYMPH % 31.2 % L=10.0 H=50.0 MONO % 20.9 % L=2.0 H=12.0 48010-6 LOINC H EOS % 0.7 % L=0.0 H=8.0 BASO % 0.2 % L=0.0 H=3.0 IG % 0.2 % L=0.0 H=1.1 2514-8 LOINC NRBC % 0.0 % L=0.0 H=0.0 61032-6 LOINC NEUT abs count 1.9 th/cmm L=1.6 H=8.4 751-8 LOINC LYMPH abs count 1.3 th/cmm L=1.5 H=4.0 731-0 LOINC L MONO abs count 0.8 th/cmm L=0.2 H=1.0 742-7 LOINC EOS abs count 0.0 th/cmm L=0.0 H=0.5 711-2 LOINC BASO abs count 0.0 th/cmm L=0.0 H=0.2 704-7 LOINC IG abs count 0.0 th/cmm L=0.0 H=0.1 51379-5 LOINC NRBC abs count 0.0 mil/cmm L=0.0 H=0.0 88803-3 LOINC RBC 4.88 mil/cmm L=4.30 H=6.20 789-8 LOINC HEMOGLOBIN 16.7 gm/dL L=13.0 H=17.0 718-7 LOINC HEMATOCRIT 47 % L=45 H=52 4544-3 LOINC MCV 96 fL L=82 H=92 787-2 LOINC H MCH 34.2 pg L=27.0 H=31.0 785-6 LOINC H MCHC 35.8 % L=32.0 H=36.0 786-4 LOINC RDW-SD 44.2 fL L=39.0 H=49.0 788-0 LOINC PLATELET COUNT 218 th/cmm L=150 H=450 777-[address] ABD PELVIS W IV CONTRAST ONLY - Completed: 01/06/2023 17:38 LOINC: [facility] [place], [place] [address] PACS DISABILITY HEARING OFFICER REPORT Patient Name: SUZE LU MRN: Sex: : Age: [id number] M [id number] Account: Accession: Admit: StayType: [id number] 01/06/2023 E/R Ordered: Order ID: Submitted: Ordering Provider: 01/06/2023 16:10 [id number] ELIN BOLTON Completed: Technologist: Resulted: 01/06/2023 17:38 BMM 01/07/2023 14:20 Study Description: CT ABD PELVIS W IV CONTRAST ONLY Reason for Study: Abdominal Pain Imaging Protocol: Axial computed tomography images with coronal and sagittal reformatted images were created and reviewed. Contrast Material: Intravenous: Omnipaque 350 Contrast volume: 100 mL Comparison: 08 June 2017 FINDINGS: Lung Bases: Dependent changes. Small hiatal hernia. Liver: Enlarged fatty liver again demonstrated. No suspicious measurable mass. Gallbladder and Biliary Tract: Stones again noted. No evidence of wall thickening. No biliary dilation. Pancreas: Normal density, no abnormal calcifications or inflammatory process. Spleen: Normal. Adrenals: No masses seen. Kidneys: Normal size, contour and axis. Nonobstructing stone lower pole right kidney. 6. No obstructive uropathy. No suspicious masses seen. Abdominal Aorta: Abdominal portion non-dilated. Bowel: No obstruction. No bowel wall thickening. Appendix not visualized. Small duodenal diverticulum. Some fluid in colon but no evidence of wall thickening. Peritoneal Cavity: [No ascites or focal collection. No mesenteric inflammatory response. No free air. Lymph Nodes: No change mildly enlarged portacaval lymph node Bones: Left hip prosthesis causes artifact in the pelvis. Soft Tissues: Unremarkable. Bladder: Symmetric distention. No gross wall thickening. Reproductive Organs: Unremarkable as visualized. IMPRESSION: No acute abnormality is identified in the abdomen and pelvis. Radiation Optimization: All CT scans at this facility use at least one of these dose optimization techniques: automated exposure control; mA and/or kV adjustment per patient size (includes targeted exams where dose is matched to clinical indication); or iterative reconstruction. Report Digitally Signed by Amy Baldwin on 01/07/2023 02:20 PM EDT Social History Type Status Start Date End Date Code Code Syst em Smoking History Former smoker 5915866 SNOMED CT Sex Male Vital Signs Vital Sign Value Unit [place] Value C[place]don Unit Date/Time Recent/Initial? Code Code System Body Mass Index 32.28 kg/m2 01/06/2023 14:36 Initial 82436 -5 LOINC Systolic Blood Pressure 130 mm[Hg] 01/06/2023 19:04 Most Recent 8480- 6 LOINC Diastolic Blood Pressure 81 mm[Hg] 01/06/2023 19:04 Most Recent 8462- 4 LOINC Systolic Blood Pressure 132 mm[Hg] 01/06/2023 14:36 Initial 8480- 6 LOINC Diastolic Blood Pressure 87 mm[Hg] 01/06/2023 14:36 Initial 8462- 4 LOINC Body Surface Area 2.25 m2 01/06/2023 14:36 Initial 3140- 1 LOINC Height 177.800 0 cm 70.00 in 01/06/2023 14:36 Initial 8302- 2 LOINC O2 Saturation 100 % 2022 19:04 Most Recent 24731 -5 LOINC O2 Saturation 99 % 2022 14:36 Initial 55093 -5 LOINC Pulse 61.0 /min 01/06/2023 19:04 Most Recent 8867- 4 LOINC Pulse 66.0 /min 01/06/2023 14:36 Initial 8867- 4 LOINC Respiration 18 /min 01/07/20 19:04 Most Recent 9279- 1 LOINC Respiration 18 /min 01/07/20 14:36 Initial 9279- 1 LOINC Temperature 36.3 Julia 97.3 F 01/07/20 19:04 Most Recent 8310- 5 LOINC Temperature 36.0 Julia 96.8 F 01/07/20 14:36 Initial 8310- 5 LOINC Weight 102.06 kg 225.00 lbs 01/06/2023 14:36 Initial 60037 -7 LOINC Assessment You had the following problems:ACUTE APPENDICITIS [...] SLEEP APNEA active SNOMED-CT ABDOMINAL PAIN active 62367434 SNOME D-CT ENTEROCOLITIS active 82143578 SNOMED -CT GOUT active 09957484 SNOMED-CT DIABETES 2 01/06/2023 resolved 15749858 SNOMED-C T HIGH BLOOD PRESSURE 01/06/2023 resolved 62075952 SNOMED-CT Allergies and Adverse Reactions Allergy Substance Reaction Severity Start Date Concern Status Co de Code System NORVASC Itching (SNOMED-CT: 164404354) Active 10198 RxNorm Plan of Treatment PRE-OP COVID-19 TESTING 04/10/2022 PRE-OP COVID-19 TESTING 12/28/2021 OUTPATIENT PLAN: Follow up: Please see your doctor in 3-5 days. Other Instructions: Please start with clear liquids and advance your diet slowly with bland foods such as rice, banana, dry toast, dry Pasta, applesauce, crackers, and then increase your diet slowly. Return to the emergency department for increased pain, vomiting, not passing gas, or not passing stool. Please avoid dairy products. Please follow-up with your primary care provider in the next few days for reevaluation and evaluation of your labs, reevaluation of your abdomen, and to review your CT scan for any potential need for follow-up imaging. Encounters Encounter Diagnosis Start Date Code Code Sys tem Noninfectious gastroenteritis 01/06/2023 22759474 SNOMED-CT Personal Care Team Section Performer Name Performer Role Active Date Inactive Da jimmy
--- OUTSIDE RECORDS SUMMARY | 2024-05-28 20:02 | XMS_ITS | Encounter Summary ---
Author Organization [facility] Address [address] [place] [address] Care Team Providers Care Sand Molder Name Role Phone Adelita Charles MD Primary Care Provider [phone] Encounter Details Date Type Department Care Team (Late st Contact Info) Description 01/07/2023 Lab Requisition [facility] Pathology & Laboratory Medicine - [facility] [address], [place] [address] Outr Resulting Lab, Provider Social History Tobacco [...] Procedure Name Priority Date/Time Associated Diagnosis Comments OVA/PARASITE EXAM Routine 01/07/2023 8:00 EDT documented in this encounter Results * OVA/PARASITE EXAM (01/07/2023 8:00 EDT) Parasite No ova and parasites seen. 01/08/2023 12:29 EDT [facility] Feces SPECIMEN FROM RECTUM / Unknown 01/07/2023 8:00 EDT 01/07/2023 15:40 EDT Narrative [facility] - 01/08/2023 12:29 EDT (If Cryptosporidium, Cyclospora, or Microsporidium are suspected, specific tests must be requested.) Single negative specimen does not rule out the possibility of a parasitic infection. Provider Outr Resulting Lab MICROBIOLOGY - GENERAL ORDERABLES [facility] [address] [place] [address] documented in this encounter Visit Diagnoses Not on filedocumented in this encounter Care Teams Sand Molder Relationship Specialty Start Date End Date Adelita Charles MD [address] [place] [address] PCP - General 07/05/19 documented as of this encounter
--- OUTSIDE RECORDS SUMMARY | 2024-05-28 20:02 | XMS_ITS | Encounter Summary ---
Author Organization [facility] Address [address] [place] [address] Care Team Providers Care Instrument Worker Name Role Phone Adelita Charles MD Primary Care Provider Encounter Details Date Type Department Care Team (Late st Contact Info) Description 12/08/[address] [facility] Pathology & Laboratory Medicine - [facility] [address] [place], [place] [address] Outr Resulting Lab, Provider Social History Tobacco [...] Procedure Name Priority Date/Time Associated Diagnosis Comments PSA TOTAL, DIAGNOSTIC Routine 12/07/2020 16:00 EST documented in this encounter Results * PSA TOTAL, DIAGNOSTIC (12/07/2020 16:00 EST) PSA 0.4 0.0 - 4.5 ng/mL 12/08/2020 18:18 EST [facility] Blood VENOUS BLOOD / Unknown 12/07/2020 16:00 EST 12/08/2020 16:08 EST Narrative [facility] - 12/08/2020 18:18 EST NOTE: Serum PSA concentration should not be interpreted as absolute evidence for the presence or absence of malignant disease. Assayed on Siem[employer] SweetSlapaur XPT using chemiluminescent technology.??Values obtained by using different assay methods cannot be used interchangeably. Provider Outr Resulting Lab CHEMISTRY & BLOOD GAS ORDERABLES [facility] [address] [place] [address] documented in this encounter Visit Diagnoses Not on filedocumented in this encounter Care Teams Instrument Worker Relationship Specialty Start Date End Date Adelita Charles MD [address] [place] [address] PCP - General 07/05/19 documented as of this encounter
--- OUTSIDE RECORDS SUMMARY | 2024-05-28 20:02 | XMS_ITS | Encounter Summary ---
Author Organization [facility] [place] [facility] Address [address] [place] [address] Care Team Providers Care Front Office Secretary Name Role Phone Unavailable Primary Care Provider Unavailabl e Encounter Details Date Type Department Care Team (Latest Contact Info) Description 11/04/2001 12:26 [facility] [[email or web address] Hospital Encounter [facility] - [facility] [address] [place] [address] Yusuf Poon MD [address] [place] [phone] Discharge Disposition: Auto Discharge Social History [...] Associated Diagnosis Comments WRIST 2 VIEWS Routine 02/13/2002 10:47 EDT documented in this encounter Results * WRIST 2 VIEWS (02/13/2002 10:47 EDT) Anatomical Region Laterality Modality Other 02/13/2002 10:4 7 EDT Impressions 07/28/2009 3:38 EDT IMPRESSION: 1) Mild degenerative changes of the wrist. 2) Ulnar positive variance (approximately 2-3mm). /sb Narrative 07/28/2009 3:38 EDT left wrist pain, s/p radial head resection, r/o ulnar variance LEFT WRIST: 02/13/02 COMPARISON: 11/04/01 PA and lateral views. Procedure Note Vicente Wallace MD - 07/28/2009 left wrist pain, s/p radial head resection, r/o ulnar variance LEFT WRIST: 02/13/02 COMPARISON: 11/04/01 PA and lateral views. IMPRESSION IMPRESSION: 1) Mild degenerative changes of the wrist. 2) Ulnar positive variance (approximately 2-3mm). / Yusuf Poon MD IMG DIAGNOSTIC IMAGI NG ORDERABLES documented in this encounter Visit Diagnoses Not on filedocumented in this encounter
--- OUTSIDE RECORDS SUMMARY | 2024-05-28 20:02 | XMS_ITS ---
Author Organization Unknown Address [address] [place] [phone] Phone Care Team Providers Care Diamond Sizer Name Role Phone ROBELTONNY CHARLENE Regalado Attending Unavailable ETHAN NITESH Chito Primary Unavailable Social History Type Status Start Date End Date Code Code Syst em Smoking History Former smoker 7635942 SNOMED CT Sex Male Assessment You had [...] SLEEP APNEA active SNOMED-CT ABDOMINAL PAIN active 15562641 SNOME D-CT ENTEROCOLITIS active 94466250 SNOMED -CT GOUT active 72245101 SNOMED-CT DIABETES 2 01/06/2023 resolved 43907568 SNOMED-C T HIGH BLOOD PRESSURE 01/06/2023 resolved 75381906 SNOMED-CT Allergies and Adverse Reactions Allergy Substance Reaction Severity Start Date Concern Status Co de Code System NORVASC Itching (SNOMED-CT: 707475301) Active 77813 RxNorm Plan of Treatment PRE-OP COVID-19 TESTING 04/10/2022 PRE-OP COVID-19 TESTING 12/28/2021 Encounters Encounter Diagnosis Start Date Code Code Sys tem Heart murmur 01/11/2024 03296218 SNOMED-CT Personal Care Team Section Performer Name Performer Role Active Date Inactive Da te
--- OUTSIDE RECORDS SUMMARY | 2024-05-28 20:02 | XMS_ITS | Encounter Summary ---
Author Organization [facility] Address [address] [place] [address] Care Team Providers Care Excelsior Cutter Name Role Phone Adelita Charles MD Primary Care Provider Encounter Details Date Type Department Care Team (Late st Contact Info) Description 04/05/2023 Lab Requisition [facility] Pathology & Laboratory Medicine - [facility] [address] [place], [place] [address] Outr Resulting Lab, Provider Social History Tobacco [...] Associated Diagnosis Comments PSA TOTAL, DIAGNOSTIC Routine 04/04/2023 18:15 EDT documented in this encounter Results * PSA TOTAL, DIAGNOSTIC (04/04/2023 18:15 EDT) PSA 0.3 <=4.5 ng/mL 04/05/2023 17:[address] [facility] Blood VENOUS BLOOD / Unknown 04/04/2023 18:15 EDT 04/05/2023 16:[address] [facility] - 04/05/2023 17:46 EDT NOTE: Serum PSA concentration should not be interpreted as absolute evidence for the presence or absence of malignant disease. Assayed on [employer] Instant[employer]aur XPT using chemiluminescent technology.??Values obtained by using different assay methods cannot be used interchangeably. Provider Outr Resulting Lab CHEMISTRY & BLOOD GAS ORDERABLES [facility] [address] [place] [address] documented in this encounter Visit Diagnoses Not on filedocumented in this encounter Care Teams Excelsior Cutter Relationship Specialty Start Date End Date Adelita Charles MD [address] [place] [address] PCP - General 07/05/19 documented as of this encounter
--- OUTSIDE RECORDS SUMMARY | 2024-05-28 20:02 | XMS_ITS | Encounter Summary ---
Author Organization [facility] Address [address] [place] [address] Care Team Providers Care Engineering Production Liaison Name Role Phone Adelita Charles MD Primary Care Provider Reason for Visit * Reason Comments Leg Pain Pt to ED from [facility] . Seen earlier at OSH for knee pain/leg pain starting this afternoon. Nauseated earlier in the day. Sent here for U/S of leg to r/o DVT. Encounter Details Date Type Department Care Team (Late st Contact Info) Description 07/05/2019 0:15 EDT - 07/05/2019 1:35 EDT Emergency [facility] Emergency Department - [address] [id number] Jensen Dawson, PA-C [address] [place] [address] Richard Marks MD [address] [facility], Level [address] [place] [phone] Pain of right lower extremity (Primary Dx) Discharge Disposition: Home or Self Care Social [...] on file documented as of this encounter Last Filed Vital Signs Vital Sign Reading Time Taken Comments Blood Pressure 147/81 07/05/201920 EDT Pulse 71 07/05/201920 EDT Temperature 36.9 ??C (98.4 ??F) 07/05/201920 EDT Respiratory Rate 18 07/05/201920 EDT Oxygen Saturation 98% 07/05/201920 EDT Inhaled Oxygen Concentration - - Weight 108.9 kg (240 lb) 07/05/201920 EDT Height 180.3 cm (5' 11) 07/05/201920 EDT Body Mass Index 33.47 07/05/201920 EDT documented in this encounter Discharge Diagnoses Diagnosis M79.661 Pain in right lower leg-M79.661[ICD-10-CM] M25.561 Pain in right knee-M25.561[ICD-10-CM] E11.9 Type 2 diabetes mellitus without complications-E11.9[ICD-10-CM] Z79.84 residential (current) use of oral hypoglycemic drugs-Z79.84[ICD-10-CM] I10 Essential (primary) hypertension-I10[ICD-10-CM] Z79.899 Other exterminator termite (current) drug therapy-Z79.899[ICD-10-CM] Z79.82 residential (current) use of aspirin-Z79.82[ICD-10-CM] documented in this encounter Discharge Instructions * Discharge Instructions* Jensen Henry PA - 07/05/2019 1:25 EDT Exam today showed no leg swelling or redness, but diffuse right calf tenderness. Ultrasound today shows no blood clots or other abnormalities. Unclear source of your discomfort, could be a muscular strain. Use Motrin or Tylenol as needed. Return immediately for worsening or uncontrolled symptoms, otherwise followup with your PCP. documented in this encounter Medications at Time of Discharge [...] or Self Care documented in this encounter ED Notes * Lesia Francis RN - 07/05/2019 0133 EDT Discharge instructions given to pt, questions answered at this time. Instructed to follow up with PCP or return if sx worsen. Pt in agreement with POC. * Jensen Henry PA - 07/05/2019 0032 EDT DOS: 07/05/2019 Chief Complaint Patient presents with ??? Leg Pain Pt to ED from [facility]. Seen earlier at OSH for knee pain/leg pain starting this afternoon. Nauseatedearlier in the day. Sent here for U/S of leg to r/o DVT. HPI I, Tracie Starkey, am scribing for Jensen Dawson PA while he is personally performing the service. Tracie Starkey 07/05/2019 0:32 Kaushik Suggs Deonte is a 59 y.o. male with a history of gout, HTN, and DM who presents from [facility] for worsening R knee and R lower leg pain since this afternoon with intermittent nausea sent here for r/o DVT; he reports having labs and x-rays done at [facility]. He states he was sent home from work early dueto nausea. He notes an injury to the R knee 3 weeks ago, for which he has been getting PT; he states pain today is different. He notes chills during the night last night but has otherwise been well. Patient denies recent long travel or prolonged immobilization. Patient denies fevers and shortness of breath. Patient denies history of blood clots. He denies smoking. He denies CA history. The history is provided by the patient, medical records and the spouse. Review of Systems Review of Systems Musculoskeletal: Positive for arthralgias and myalgias. ROS otherwise as noted in HPI above. The patient???s past medical, family, and social history was reviewed and updated as needed. Allergies no known allergies Vital Signs Temp: 36.9 ??C (98.4 ??F) Temp src: Oral Pulse: 71 Resp: 18 SpO2: 98 % BP: (!) 147/81 BP Device: BP Machine Patient Position: Sitting BP Cuff Location: Right arm O2 Device: None (Room air) Physical Exam Constitutional: He is oriented to person, place, and time. He appears well- developed and well-nourished. No distress. HENT: Head: Normocephalic and atraumatic. Eyes: Pupils are equal, round, and reactive to light. Conjunctivae and EOM are normal. Neck: Normal range of motion. Pulmonary/Chest: Effort normal. Musculoskeletal: Right knee: He exhibits normal range of motion. Tenderness found. Lateral joint line tenderness noted. Right lower leg: He exhibits tenderness (diffusely from popliteal fossa to achilles tendon). He exhibits no swelling. No R calf warmth or erythema, able to straight leg raise Neurological: He is alert and oriented to person, place, and time. Skin: Skin is warm and dry. He is not diaphoretic. Psychiatric: He has a normal mood and affect. His behavior is normal. Judgment and thought content normal. Nursing note and vitals reviewed. Procedures: None ED COURSE A medical screening exam was performed. Mildly hypertensive but VS otherwise normal. On exam, patient had diffuse R calf tenderness from the popliteal fossa to the achilles tendon without significant swelling, warmth, or erythema and mild lateral R knee tenderness with full ROM. Patient had a RLE ultrasound with limited doppler, significant for no sonographic evidence of DVT. Obtained, reviewed, and interpreted by the radiologist. Please see radiology report for further details. Discharged with pain management instructions. Prior to discharge usual and customary precautions were reviewed with the patient and family including follow-up instructions and reasons to return to the Emergency Department if condition worsens, does not improve as expected, or other new concerns arise. Final diagnoses: Pain of right lower extremity DISPOSITION: Discharged The patient's pain was managed to an adequate level weighing risk vs. benefit of further medications. Upon departure from the Emergency Department, the patient's pain was 2 on a zero to ten scale. Any further pain treatment will be at the discretion of the provider following up with the patient based on their clinical assessment. Condition at departure from the Emergency Department: Stable PCP: Adelita KRAUSE Number of Diagnoses or Management Options Pain of right lower extremity: Amount and/or Complexity of Data Reviewed Tests in the radiology section of CPT??: ordered and reviewed Independent visualization of images, tracings, or specimens: yes This documentation is recorded by Tracie Starkey acting as Scribe under the direction and presence of Jensen Dawson PA. Jensen Dawson PA: I personally performed the services recorded by the scribe in my presence. I confirm the scribe's documentation has been reviewed by me to accurately and completely record my work, treatment, procedures, and medical decision making. Sahil Mulligan MD was available for supervision. 07/15/2019 13:35 No flowsheet data found. documented in this encounter Plan of Treatment Not on file documented as of this encounter Procedures Procedure Name Priority Date/Time Associated Diagnosis Comments RAD US DOPPLER LOWER EXTREMITY VENOUS UNILATERAL STAT 07/05/2019 1:17 EDT documented in this encounter Results * RAD US DOPPLER LOWER EXTREMITY VENOUS UNILATERAL (07/05/2019 1:17 EDT) Anatomical Region Laterality Modality Other 07/05/2019 1:17 EDT 07/05/2019 7:10 EDT Narrative 07/05/2019 7:10 EDT RAD US DOPPLER LOWER EXTREMITY VENOUS UNILATERAL ??07/05/2019 1:17 AM Signs and Symptoms/Comments: ?? Leg swelling or pain, DVT suspected Technique: Static, cine, color Doppler and spectral tracing images were obtained of the deep venous system of the right lower extremity. Comparison: None Findings: ?? There is complete compressibility, normal color Doppler flow, and normal flow augmentation of the right external iliac, common femoral, superficial femoral, origin of the deep femoral, proximal great saphenous, and popliteal veins. The posterior tibial and peroneal veins in the calf show normal color Doppler flow. Impression: No sonographic evidence of DVT of the right lower extremity. I have personally reviewed the images and the above interpretation and agree with the findings. Procedure Note Nilson Sue MD, MD - 07/05/2019 RAD US DOPPLER LOWER EXTREMITY VENOUS UNILATERAL 07/05/2019 1:17 AM Signs and Symptoms/Comments: Leg swelling or pain, DVT suspected Technique: Static, cine, color Doppler and spectral tracing images were obtained of the deep venous system of the right lower extremity. Comparison: None Findings: There is complete compressibility, normal color Doppler flow, and normal flow augmentation of the right external iliac, common femoral, superficial femoral, origin of the deep femoral, proximal great saphenous, and popliteal veins. The posterior tibial and peroneal veins in the calf show normal color Doppler flow. Impression: No sonographic evidence of DVT of the right lower extremity. I have personally reviewed the images and the above interpretation and agree with the findings. Jensen Dawson PA-C G US ORDERABLES documented in this encounter Visit Diagnoses Diagnosis Pain of right lower extremity- Primary documented in this encounter Historical Medications * This list may reflect changes made after this encounter. Medication Sig Dispensed Refills Start Date End Date potassium chloride SA (K-DUR) 10 mEq tablet Take 10 mEq by mouth daily. omeprazole (PRILOSEC) 20 mg capsule Take 20 mg by mouth 2 times daily. SITagliptin (JANUVIA) 50 mg tablet Take 50 mg by mouth daily. hydrOXYzine (ATARAX) 25 mg tablet Take 25 mg by mouth every 8 hours as needed for Itching. metFORMIN (GLUCOPHAGE) 500 mg tablet Take 1,000 mg by mouth 2 times daily. losartan (COZAAR) 50 mg tablet Take 50 mg by mouth daily. aspirin chewable 81 mg tablet Take 81 mg by mouth daily. allopurinol (ZYLOPRIM) 100 mg tablet Take 300 mg by mouth daily. added in this encounter Care Teams Engineering Production Liaison Relationship Specialty Start Date End Date Adelita Charles MD [address] [place] [phone] PCP - General 07/05/19 documented as of this encounter
--- OUTSIDE RECORDS SUMMARY | 2024-05-28 20:02 | XMS_ITS | Encounter Summary ---
Author Organization [facility] Address [address] [place] [address] Care Team Providers Care Agricultural Systems Specialist Name Role Phone Unavailable Primary Care Provider Unavailabl e Encounter Details Date Type Department Care Team (Latest Contact Info) Description 02/13/2002 18:50 EDT - 03/14/2002 11:59 EDT Hospital Encounter [address] [address] Yusuf Poon MD [address] [place] [phone] Discharge Disposition: Auto Discharge Social History [...]
--- OUTSIDE RECORDS SUMMARY | 2024-05-28 20:02 | XMS_ITS ---
Author Organization Unknown Address [address] [place] [phone] Phone Care Team Providers Care Product Marketing Engineer Name Role Phone TOBI Montejo Attending Unavailable ETHAN Dale Primary Unavailable Results XR FOOT 3V RT* - Completed: 02/21/2023 16:53 LOINC: [facility] [place], [place] [address] PACS [employer] REPORT Patient Name: SUZE LU MRN: Sex: : Age: [id number] M [id number] Account: Accession: Admit: StayType: [id number] 02/21/2023 CLINIC Ordered: Order ID: Submitted: Ordering Provider: 02/21/2023 14:28 [id number] EMO BERNARD BRITTON Completed: Technologist: Resulted: 02/21/2023 16:53 EMO 02/21/2023 19:26 Study Description: XR FOOT 3V RT Study Reason: Pain TECHNIQUE: 2D digital imaging was performed. COMPARISON: No exams were available for comparison FINDINGS: NUMBER OF VIEWS: 3 No evidence of acute fracture nor diastases of the Lisfranc joint. Bipartite lateral sesamoid subjacent to the great toe metatarsal head noted no obvious degenerative changes in the great toe metatarsophalangeal joint space. No pes planus. Tiny inferior calcaneal spur noted. Bone density normal. No significant osseous lesions. Tiny inferior calcaneal spur. IMPRESSION: As above. Incidentally noted is very thin-faint shadow of the Achilles tendon. Correlation with any prior history of Achilles tendon pathology recommended Report Digitally Signed by Kenyon Urban on 02/21/2023 07:26 PM EDT Social History Type Status Start Date End Date Code Code Syst em Smoking History Former smoker 4997899 SNOMED CT Sex Male Assessment You had [...] SLEEP APNEA active SNOMED-CT ABDOMINAL PAIN active 22221652 SNOME D-CT ENTEROCOLITIS active 19038033 SNOMED -CT GOUT active 89468678 SNOMED-CT DIABETES 2 01/06/2023 resolved 86716796 SNOMED-C T HIGH BLOOD PRESSURE 01/06/2023 resolved 37166008 SNOMED-CT Allergies and Adverse Reactions Allergy Substance Reaction Severity Start Date Concern Status Co de Code System NORVASC Itching (SNOMED-CT: 850060295) Active 12283 RxNorm Plan of Treatment PRE-OP COVID-19 TESTING 04/10/2022 PRE-OP COVID-19 TESTING 12/28/2021 Encounters Encounter Diagnosis Start Date Code Code Sys tem Disorder of joint of ankle and/or foot 02/21/2023 44 9633341 SNOMED-CT Personal Care Team Section Performer Name Performer Role Active Date Inactive Da te
--- OUTSIDE RECORDS SUMMARY | 2024-05-28 20:02 | XMS_ITS | Encounter Summary ---
Author Organization [facility] Address [address] [place] [address] Care Team Providers Care Aeronautics Commission Director Name Role Phone None, Provider Primary Care Provider Adelita Jules MD Primary Care Provider [phone] Encounter Details Date Type Department Care Team (Late st Contact Info) Description 10/29/2018 Historical Results Only [facility] Results [address] [place], [place] [phone] Jeremy Hunt PA [address] [place], [place] [phone] Social History Tobacco Use Types Packs/Day Years [...] Name Priority Date/Time Associated Diagnosis Comments XR FOOT RIGHT 3 OR MORE VIEWS 10/29/2018 16:30 EST documented in this encounter Results * XR FOOT RIGHT 3 OR MORE VIEWS (10/29/2018 16:30 EST) Anatomical Region Laterality Modality Lower Extremities Right Other 10/29/2018 16:3 0 EST Narrative 10/29/2018 16:34 EST ? EXAM: RADIOLOGY/FOOT RIGHT 3+VIEW ? EX. D/ (1544) ? CLINICAL INFORMATION: ? M25.80 SESAMOIDITIS ? WEIGHTBEARING VIEWS PLEASE ? SWELLING AND MILD PAIN PLANTAR 1ST MTP JOINT ? FOOT RIGHT 3+VIEW ? Signs and Symptoms/Comments: ??M25.80 SESAMOIDITIS, WEIGHTBEARING ? VIEWS PLEASE, SWELLING AND MILD PAIN PLANTAR 1ST MTP JOINT ? Comparison: None ? FINDINGS: ? Right foot: 3 weightbearing views were performed. No acute fracture ? or malalignment is identified. The soft tissues about the 1st MTP ? joint are markedly swollen. A bipartite lateral sesamoid is present ? at the 1st MTP joint, likely a developmental variant although ? sesamoiditis may have a similar appearance. Mild degenerative changes ? are present at the 1st MTP joint without definite erosions. Mild ? degenerative changes are scattered throughout the midfoot and ? hindfoot. Prominent enthesopathic changes are present along the ? posterior calcaneus. ? IMPRESSION: ? Marked soft tissue swelling about the 1st MTP joint. Possible lateral ? sesamoiditis versus developmental variant. Superimposed infection ? cannot be excluded on the basis of these radiographs. ? REPORT SIGNED IN OTHER VENDOR SYSTEM 10/29/2018 ?Reported By: Del Hutchinson MD ? CC: ? Transcribed Date/Time: 10/29/2018 (1634) ? Products Mechanical Design Engineer: .BRANDY ? Printed Date/Time: 04/06/2019 (3773) ? PAGE 1 ? Signed Report ? Procedure Note Del Hutchinson MD - 08/21/2019 EXAM: RADIOLOGY/FOOT RIGHT 3+VIEW EX. D/ (1544) CLINICAL INFORMATION: M25.80 SESAMOIDITIS WEIGHTBEARING VIEWS PLEASE SWELLING AND MILD PAIN PLANTAR 1ST MTP JOINT FOOT RIGHT 3+VIEW Signs and Symptoms/Comments: M25.80 SESAMOIDITIS, WEIGHTBEARING VIEWS PLEASE, SWELLING AND MILD PAIN PLANTAR 1ST MTP JOINT Comparison: None FINDINGS: Right foot: 3 weightbearing views were performed. No acute fracture or malalignment is identified. The soft tissues about the 1st MTP joint are markedly swollen. A bipartite lateral sesamoid is present at the 1st MTP joint, likely a developmental variant although sesamoiditis may have a similar appearance. Mild degenerativechanges are present at the 1st MTP joint without definite erosions. Mild degenerative changes are scattered throughout the midfoot and hindfoot. Prominent enthesopathic changes are present along the posterior calcaneus. IMPRESSION: Marked soft tissue swelling about the 1st MTP joint. Possiblelateral sesamoiditis versus developmental variant. Superimposed infection cannot be excluded on the basis of these radiographs. REPORT SIGNED IN OTHER VENDOR SYSTEM 10/29/2018 Reported By: Del Hutchinson MD CC: Transcribed Date/Time: 10/29/2018 (6334) Products Mechanical Design Engineer: Printed Date/Time: 04/06/2019 (9095) PAGE 1 Signed Report Cuco Rashid DPM IMG DIAGNOSTIC IMAG ING ORDERABLES documented in this encounter Visit Diagnoses Not on filedocumented in this encounter Care Teams Aeronautics Commission Director Relationship Specialty Start Date End Date None, Provider PCP - General 08/21/15 07/04/19 Adelita Charles MD [address] [place] [phone] PCP - General 07/05/19 documented as of this encounter
--- OUTSIDE RECORDS SUMMARY | 2024-05-28 20:02 | XMS_ITS | Encounter Summary ---
Author Organization [facility] Address [address] [place] [address] Care Team Providers Care Shaper Machine Hand Name Role Phone None, Provider Primary Care Provider Unavailabl e Encounter Details Date Type Department Care Team (Late st Contact Info) Description 10/02/2017 Results Only [facility] [phone] Adelita Long MD [address] [place] [phone] Social History Tobacco Use Types Packs/Day Years Used Date Smoking Tobacco: Never Assessed Sex and Gender Information Value Date Recorded Sex Assigned at Not on file Gender Identity Not on file Sexual Orientation Not on file documented as of this encounter Plan of Treatment Not on file documented as of this encounter Procedures Procedure Name Priority Date/Time Associated Diagnosis Comments SURGICAL PATHOLOGY Routine 10/02/2017 9:35 EST documented in this encounter Results * SURGICAL PATHOLOGY (10/02/2017 9:35 EST) Pathology Report: SURGICAL PATHOLOGY REPORT Reports generated via electronic interface contain original data; however they are lacking the format of the original report. Caution should be taken when reading/interpreting unformatted reports. Name: ? KAUSHIK LU ? Accession #: ? [id number] ? : ? 1960 (Age: 57) ??M ? Collect Date: ? 10/02/2017 ? Location: ? [facility] ? Receive Date: ? 10/03/2017 ? Provider: ADELITA LONG MD Copy to: ? Final Pathologic Diagnosis: A. ??SKIN OF NASAL BRIDGE, #1, SHAVE BIOPSY: - Actinic keratosis, hypertrophic type, with cutaneous horn formation. B. ??SKIN OF NASAL BRIDGE, #2, SHAVE BIOPSY: - Actinic keratosis. ?? Microscopic Description: A-The stratum corneum is markedly thickened by orthohyperkeratosis and confluent parakeratosis. ??The epidermis is hyperplastic with expansion of the stratum spinosum by enlarged keratinocytes with abundant glassy eosinophilic cytoplasm. The basal keratinocytes show a variable degree of nuclear atypia including enlargement, dispolarity, and overlap. ??The dermis is marked by solar elastosis, vascular ectasia, and a lymphohistiocytic infiltrate. ?? B-The stratum corneum is thickened by orthohyperkeratosis with foci of parakeratosis. ??The epidermis is focally thickened with elongate and bulbous rete ridges. ??The basal keratinocytes show a variable degree of atypia including nuclear enlargement, dispolarity, and hyperchromasia. ??The dermis is marked by solar elastosis, vascular ectasia and a lymphohistiocytic infiltrate. ??(Dr. Brannon)/ljn Document reviewed and electronically signed by: NAVNEET BRANNON MD Report ??Date: 10/05/2017 11:10 By the signature above, the attending physician certifies that he/she has personally conducted a gross and/or microscopic examination of the described specimens and rendered or confirmed the above diagnosis. Specimen(s) Received: A. ??Shave bx nasal bridge (#1) B. ??Shave bx nasal bridge (#2) Clinical History: A. Hyperkeratotic papule, nose, gradually enlarging, B. Non-healing lesion nasal bridge Gross Description: A. ?Received in formalin labelled with proper patient identification (initials N, W) and nose specimen #1 are two irregular fragments of sandoval-white to yellow tissue (0.3 x 0.2 x 0.1 cm and 0.3 x 0.2 x 0.2 cm). The margins of both tissues are inked blue. The specimens are submitted in toto in A1. B. ?Received in formalin labelled with proper patient identification (initials N, W) and nose #2 is a 0.5 x 0.3 x 0.2 cm irregular shave of granular sandoval skin. The margin is inked blue. The specimen is submitted in toto in B1. MERON Nix (ASCP) 10/04/2017 10:30 AM End of Report [facility] 10/02/2017 9:35 EST 10/03/2017 9:35 EST Adelita Long MD PATHOLOGY ORDERABLES Performing Organization Address City/State/[facility] Co de Phone Number [facility] [address] [place] [address] documented in this encounter Visit Diagnoses Not on filedocumented in this encounter Care Teams Shaper Machine Hand Relationship Specialty Start Date End Date None, Provider PCP - General 08/21/15 07/04/19 documented as of this encounter
--- OUTSIDE RECORDS SUMMARY | 2024-05-28 20:02 | XMS_ITS | Encounter Summary ---
Author Organization [facility] Address [address] [place] [address] Care Team Providers Care Measurement Analyst Name Role Phone None, Provider Primary Care Provider Adelita Jules MD Primary Care Provider [phone] Encounter Details Date Type Department Care Team (Late st Contact Info) Description 11/03/2015 Historical Results Only [facility] [place] Results [address] [place] [address] Sukhwinder Schafer MD Social History Tobacco Use Types Packs/Day Years [...] Name Priority Date/Time Associated Diagnosis Comments XR LUMBAR SPINE 2-3 VIEWS 11/03/2015 17:28 EST documented in this encounter Results * XR LUMBAR SPINE 2-3 VIEWS (11/03/2015 17:28 EST) Anatomical Region Laterality Modality Other 11/03/2015 17:2 8 EST Narrative 11/03/2015 17:28 EST ? EXAM: RADIOLOGY [facility] XR ??EX. D/ (8854) ? CLINICAL INFORMATION: ? LUMBAR PAIN - M54.5 ? X-RAYS DONE AT [facility] ? EXAM: ? XR Spine Lumbosacral 2 Or 3. ? CLINICAL HISTORY: ? 55 years old, male; Pain; Low back pain; Additional info: Lumbar ? pain - m54.5 ? TECHNIQUE: ? X-ray spine lumbosacral 2 or 3. ? EXAM DATE/TIME: ? Exam ordered 11/03/2015 4:43 PM ? COMPARISON: ? No relevant prior studies available. ? FINDINGS: ? No significant scoliosis. ??Normal lumbar lordotic curvature. ? Lumbar vertebral body stature maintained. ? Modest osteophyte formation along the superior aspects of the L3- ? S1 vertebral body endplates. ? Likely joint space narrowing and increased bone density most ? noteworthy at L5-S1. ? Intervertebral disc spacing fairly well maintained. ? Normal appearing sacroiliac joints without erosive changes, ? ankylosis or osteophytosis. ? There is partial sacralization of the right transverse process of ? L5 which extends to the right iliac crest.. ? IMPRESSION: ? Normal lumbar alignment. ? Modest endplate osteophytic ridging and lower lumbar facet ? arthropathy. ? REPORT SIGNED IN OTHER VENDOR SYSTEM 11/03/2015 ?Reported By: Miguelito Mcdaniel MD ? CC: ? Transcribed Date/Time: 11/03/2015 (1728) ? Director Of Health Care Marketing: ? Printed Date/Time: 03/26/2019 (1006) ? PAGE 1 ? Signed Report ? Procedure Note Miguelito Mcdaniel - 08/20/2019 EXAM: RADIOLOGY [facility] XR EX. D/ (1705) CLINICAL INFORMATION: LUMBAR PAIN - M54.5 X-RAYS DONE AT [facility] EXAM: XR Spine Lumbosacral 2 Or 3. CLINICAL HISTORY: 55 years old, male; Pain; Low back pain; Additional info: Lumbar pain - m54.5 TECHNIQUE: X-ray spine lumbosacral 2 or 3. EXAM DATE/TIME: Exam ordered 11/03/2015 4:43 PM COMPARISON: No relevant prior studies available. FINDINGS: No significant scoliosis. Normal lumbar lordotic curvature. Lumbar vertebral body stature maintained. Modest osteophyte formation along the superior aspects of the L3- S1 vertebral body endplates. Likely joint space narrowing and increased bone density most noteworthy at L5-S1. Intervertebral disc spacing fairly well maintained. Normal appearing sacroiliac joints without erosive changes, ankylosis or osteophytosis. There is partial sacralization of the right transverse process of L5 which extends to the right iliac crest.. IMPRESSION: Normal lumbar alignment. Modest endplate osteophytic ridging and lower lumbar facet arthropathy. REPORT SIGNED IN OTHER VENDOR SYSTEM 11/03/2015 Reported By: Miguelito Mcdaniel MD CC: Transcribed Date/Time: 11/03/2015 (1728) Director Of Health Care Marketing: Printed Date/Time: 03/26/2019 (9270) PAGE 1 Signed Report Sukhwinder Schafer MD IMG DIAGNOSTIC [facility] GING ORDERABLES documented in this encounter Visit Diagnoses Not on filedocumented in this encounter Care Teams Measurement Analyst Relationship Specialty Start Date End Date None, Provider PCP - General 08/21/15 07/04/19 Adelita Charles MD [address] [facility] [place] [address] PCP - General 07/05/19 documented as of this encounter
--- OUTSIDE RECORDS SUMMARY | 2024-05-28 20:02 | XMS_ITS | Encounter Summary ---
Author Organization [facility] Address [address] [place] [address] Care Team Providers Care Radiator Tester Name Role Phone Adelita Charles MD Primary Care Provider [phone] Encounter Details Date Type Department Care Team (Late st Contact Info) Description 07/05/2019 Results Only Imaging [facility] [phone] Unknown, Provider, Social History Tobacco Use Types Packs/Day Years [...] as of this encounter Plan of Treatment Pending Results Name Type Priority Associated Diagnoses Date /Time OUTSIDE IMAGES - PLAIN FILM MSK Imaging 07/05/2019 8:10 EDT documented as of this encounter Visit Diagnoses Not on filedocumented in this encounter Care Teams Radiator Tester Relationship Specialty Start Date End Date Adelita Charles MD [address] [place] [id number] PCP - General 07/05/19 documented as of this encounter
--- OUTSIDE RECORDS SUMMARY | 2024-05-28 20:02 | XMS_ITS | Encounter Summary ---
Author Organization [facility] Address [address] [place] [address] Care Team Providers Care Group Leader Name Role Phone Unavailable Primary Care Provider Unavailabl e Encounter Details Date Type Department Care Team (Late st Contact Info) Description 11/04/2000 12:56 EST Hospital Encounter [address] [address] Yusuf Poon MD [address] [place] [phone] Social History Tobacco Use Types Packs/Day Years [...]
--- OUTSIDE RECORDS SUMMARY | 2024-05-28 20:03 | XMS_ITS | Encounter Summary ---
Author Organization [facility] Address [facility] [place] [address] Care Team Providers Care Clinical Neuropsychologist Name Role Phone Adelita Charles MD Primary Care Provider [phone] Encounter Details Date Type Department Care Team (Late st Contact Info) Description 12/07/2021 Ancillary Procedure [place] [phone] Adelita Charles MD [address] [place], [place] [address] Social History Tobacco Use Types Packs/Day Years Used Date Smoking Tobacco: Former Cigarettes Smokeless Tobacco: Never Alcohol Use Standard Drinks/Week Comments Not Asked 0 (1 standard drink = 0.6 oz pur e alcohol) a long time ago Sex and Gender Information Value Date Recorded Sex Assigned at Not on file Gender Identity Not on file Sexual Orientation Not on file documented as of this encounter Plan of Treatment Not on file documented as of this encounter Procedures Procedure Name Priority Date/Time Associated Diagnosis Comments FILM LIBRARY STORAGE ONLY DX PELVIS Routine 12/07/2021 12:00 AM EST documented in this encounter Results * Film Library- Storage Only DX Pelvis (12/07/2021 12:00 AM EST) Narrative FLORINDA - 02/15/2022 11:12 AM EDT This exam is auto-finalizing. It's purpose is for storage only. Adelita Charles MD IMG FILM LIBRARY ORD ERABLES [place], [place] documented in this encounter Visit Diagnoses Not on filedocumented in this encounter Care Teams Clinical Neuropsychologist Relationship Specialty Start Date End Date Adelita Charles MD [address] [place] [address] PCP - General 05/07/12 documented as of this encounter
--- OUTSIDE RECORDS SUMMARY | 2024-05-28 20:03 | XMS_ITS | Encounter Summary ---
Author Organization [facility] [place] [address] Care Team Providers Care Event Staff Member Name Role Phone Adelita Charles MD Primary Care Provider [phone] Encounter Details Date Type Department Care Team (Latest Contact Info) Description 07/07/2022 2:15 PM EDT Ancillary Procedure Radiology XRay at the [facility] at [facility] [address] [place] [phone] Bret Peterson MD [address] [place] [address] Status post total replacement of left hip Social History Tobacco Use Types Packs/Day Years Used Date Smoking Tobacco: Former Cigarettes Q uit: 2007 Smokeless Tobacco: Never Alcohol Use Standard Drinks/Week Comments Not Currently 0 (1 standard drink = 0.6 oz pur e alcohol) a long time ago Sex and Gender Information Value Date Recorded Sex Assigned at Not on file Gender Identity Not on file Sexual Orientation Not on file documented as of this encounter Plan of Treatment Not on file documented as of this encounter Procedures Procedure Name Priority Date/Time Associated Diagnosis Comments XR PELVIS AND HIP 2 VIEWS LEFT Routine 07/07/2022 2:18 PM EDT Status post total replacement of left hip documented in this encounter Results * XR Pelvis and Hip 2 Views Left (07/07/2022 2:18 PM EDT) Anatomical Region Laterality Modality Pelvis, Hip Left Digital Radiogra phy Impressions 07/07/2022 2:57 PM EDT Left total hip arthroplasty with no evidence of complication. Thank you for letting us participate in the care of this patient. ??If you are a health care provider and have any questions regarding this report, please contact the number below. ??For patients who have questions please contact the health day care home mother that requested your imaging first. ? Electronically signed by: Dominic Dasilva MD, [facility] ([phone]), at 07/07/2022 2:57 PM Narrative 07/07/2022 2:57 PM EDT EXAMINATION: XR PELVIS AND HIP 2 VIEWS LEFT CLINICAL HISTORY: s/p LTHA, questionable lucency medial femoral cortex on lateral projection TECHNIQUE: 3 views of the pelvis and hips COMPARISON: Radiographs from 05/12/2022. FINDINGS: The left total hip arthroplasty is in expected and unchanged alignment. No evidence of acute fracture. Stable subtle linear lucency adjacent to the femoral stem on the lateral view likely represents a prominent vascular channel. Similar appearance of right hip degenerative changes. No abnormal soft tissue density. Procedure Note oDminic Dasilva MD - 07/07/2022 EXAMINATION: XR PELVIS AND HIP 2 VIEWS LEFT CLINICAL HISTORY: s/p LTHA, questionable lucency medial femoral cortexon lateral projection TECHNIQUE: 3 views of the pelvis and hips COMPARISON: Radiographs from 05/12/2022. FINDINGS: The left total hip arthroplasty is in expected and unchanged alignment.No evidence of acute fracture. Stable subtle linear lucency adjacent to thefemoral stem on the lateral view likely represents a prominent vascular channel.Similar appearance of right hip degenerative changes. No abnormal soft tissuedensity. IMPRESSION Left total hip arthroplasty with no evidence of complication. Thank you for letting us participate in the care of this patient. If youare a health care provider and have any questions regarding this report,please contact the number below. For patients who have questions please contactthe health day care home mother that requested your imaging first. Electronically signed by: Dominic Dasilva MD, [facility]([phone]), at 07/07/2022 2:57 PM Bret Peterson MD IMG DX ORDERABLES documented in this encounter Visit Diagnoses Diagnosis Status post total replacement of left hip documented in this encounter Care Teams Event Staff Member Relationship Specialty Start Date End Date Adelita Charles MD [address] [place] [id number] PCP - General 05/07/12 documented as of this encounter
--- OUTSIDE RECORDS SUMMARY | 2024-05-28 20:03 | XMS_ITS | Encounter Summary ---
Author Organization [facility] [place] [address] Care Team Providers Care Client Service Consultant Name Role Phone Adelita Charles MD Primary Care Provider [phone] Reason for Visit * Reason Onset Date Comments Post Procedure Call 04/14/2022 Encounter Details Date Type Department Care Team (Late st Contact Info) Description 04/14/2022 Telephone Orthopaedics at [facility] [address] [place] [phone] Bret Peterson MD [address] [facility] [facility] [place] [address] Post Procedure Call Social History Tobacco Use Types Packs/Day Years [...] on file documented as of this encounter Miscellaneous Notes * Telephone Encounter - Amanda Davis LNA - 04/14/2022 1:47 PM EDT Kaushik Clemons is contacted by the office today to follow up with then and check in to see how they're doing since their recent surgery. Kaushik Clemons is status post left thr which was performed on 04/13/2022 by Bret Peterson MD . The patient states he feels great. He states that the back/hip pain that he had before surgery is gone. The patient states that he does not have questions regarding his post operative instructions. The patient is advised to call the clinic with any concerns or questions that may arise. The patient has a follow up appointment scheduled for 05/12/22 with Steve Echols. The patient denies fever or chills. The patient reports that dressing is clean dry and intact without discharge or redness. Patient reports pain at a 0 on a scale of 0/10. Patient reports that they are icing the surgical site, resting,and elevating appropriate. Patient reports taking Meloxicam daily, and 2mg of hydromorphone hs. Patient is partial weight bearing and is using a walker for ambulation. Patient is currently taking 81mg of Aspirin bid for DVT prophylaxis. Patient has not had a bowel movement since surgery. Patient denies nausea, but endorses flatulence and bloating. Patient was instructed to continue miralax and colace daily for the duration of the opioids. Patient has been contacted by [facility] and had his first visit this morning. documented in this encounter Plan of Treatment Not on file documented as of this encounter Visit Diagnoses Not on filedocumented in this encounter Care Teams Client Service Consultant Relationship Specialty Start Date End Date Adelita Charles MD [address] [place] [address] PCP - General 05/07/12 documented as of this encounter
--- OUTSIDE RECORDS SUMMARY | 2024-05-28 20:03 | XMS_ITS | Encounter Summary ---
Author Organization [facility] [place] [address] Care Team Providers Care Web Interface Developer Name Role Phone Adelita Charles MD Primary Care Provider [phone] Encounter Details Date Type Department Care Team (Latest Contact Info) Description 04/18/2023 2:45 PM EDT Ancillary Procedure Radiology XRay at the [facility] Clinic at [facility] [address] [facility] [place] [phone] Bret Peterson MD [address] [facility] [address] [place] [address] Status post total replacement of left hip [...] Date/Time Associated Diagnosis Comments XR PELVIS AND LAT HIP LEFT Routine 04/18/2023 2:28 PM EDT Status post total replacement of left hip documented in this encounter Results * XR Pelvis & Lat Hip Left (Generic) (04/18/2023 2:28 PM EDT) Anatomical Region Laterality Modality Pelvis, Hip Left Digital Radiogra phy Impressions 04/18/2023 3:50 PM EDT No interval change. No radiographic evidence of complications. Thank you for letting us participate in the care of this patient. ??If you are a health care provider and have any questions regarding this report, please contact the number below. ??For patients who have questions please contact the health career professional that requested your imaging first. ? Electronically signed by: Tej Garcia MD, [facility] ([phone]), at 04/18/2023 3:50 PM Narrative 04/18/2023 3:50 PM EDT EXAMINATION: XR PELVIS AND LAT HIP LEFT (GENERIC) CLINICAL HISTORY: assess hip healing s/p thr TECHNIQUE: AP pelvis, frog-leg view of the left hip COMPARISON: July 07, 2022 FINDINGS: Noncemented left total hip arthroplasty. No pericholecystic lucencies or fractures seen. Unchanged alignment. Vasectomy clips are again noted. Procedure Note Tej Garcia MD - 04/18/2023 EXAMINATION: XR PELVIS AND LAT HIP LEFT (GENERIC) CLINICAL HISTORY: assess hip healing s/p thr TECHNIQUE: AP pelvis, frog-leg view of the left hip COMPARISON: July 07, 2022 FINDINGS: Noncemented left total hip arthroplasty. No pericholecystic lucencies or fractures seen. Unchanged alignment. Vasectomy clips are again noted. IMPRESSION No interval change. No radiographic evidence of complications. Thank you for letting us participate in the care of this patient. If youare a health care provider and have any questions regarding this report,please contact the number below. For patients who have questions please contactthe health career professional that requested your imaging first. Bret Peterson MD IMG DX ORDERABLES documented in this encounter Visit Diagnoses Diagnosis Status post total replacement of left hip documented in this encounter Care Teams Web Interface Developer Relationship Specialty Start Date End Date Adelita Charles MD [facility] [address] [place] [address] PCP - General 05/07/12 documented as of this encounter
--- OUTSIDE RECORDS SUMMARY | 2024-05-28 20:03 | XMS_ITS | Encounter Summary ---
Author Organization [facility] [place] [address] Care Team Providers Care Asbestos Brake Lining Finisher Name Role Phone Adelita Charles MD Primary Care Provider [phone] Encounter Details Date Type Department Care Team (Late st Contact Info) Description 04/06/2022 3:00 PM EDT Telephone Pre-Admission Testing at [facility] [place] [address] Social History Tobacco Use Types Packs/Day Years Used Date Smoking Tobacco: Former Cigarettes Q uit: 2006 Smokeless Tobacco: Never Alcohol Use Standard Drinks/Week Comments Not Currently 0 (1 standard drink = 0.6 oz pur e alcohol) a long time ago Sex and Gender Information Value Date Recorded Sex Assigned at Not on file Gender Identity Not on file Sexual Orientation Not on file documented as of this encounter Progress Notes * Adelita Manuel RN - 04/06/2022 4:40 PM EDTSummary: covid COVID-19 SCREENING: In the past 14 days, have you had any of the following symptoms: [] Fever (subjective or documented fever) [] Chills [] Cough [] Shortness of breath or difficulty breathing [] Fatigue [] Muscle or body aches [] Headache [] New loss of taste or smell [] Sore throat [] Nausea or vomiting [] Diarrhea [x]NONE OF THE ABOVE Have you tested positive for COVID in the last 90 days? [x]No []Yes If Yes; Date of positive test: Type of test performed: What were your symptoms: Have you scheduled your preop COVID screening test? [x]Yes []No []N/A Test 04/10/2022 Vacc x 4 documented in this encounter Plan of Treatment Not on file documented as of this encounter Visit Diagnoses Not on filedocumented in this encounter Care Teams Asbestos Brake Lining Finisher Relationship Specialty Start Date End Date Adelita Charles MD [address] [place] [address] PCP - General 05/07/12 documented as of this encounter
--- OUTSIDE RECORDS SUMMARY | 2024-05-28 20:03 | XMS_ITS | Encounter Summary ---
Author Organization [facility] Address [facility] [place] [address] Care Team Providers Care Debit Agent Name Role Phone Adelita Charles MD Primary Care Provider [phone] Encounter Details Date Type Department Care Team (Late st Contact Info) Description 02/11/2020 Ancillary Procedure [place] [address] Adelita Charles MD [address] [place], [place] [id number] Social History Tobacco Use Types Packs/Day Years [...] Associated Diagnosis Comments FILM LIBRARY STORAGE ONLY MR SPINE Routine 02/11/2020 12:00 AM EDT documented in this encounter Results * Film Library- Storage Only MR Spine (02/11/2020 12:00 AM EDT) Narrative [facility] - 03/05/2020 4:15 PM EDT This exam is auto-finalizing. It's purpose is for storage only. Adelita Charles MD IMG FILM LIBRARY ORD ERABLES [place], [place] documented in this encounter Visit Diagnoses Not on filedocumented in this encounter Care Teams Debit Agent Relationship Specialty Start Date End Date Adelita Charles MD [address] [place] [address] PCP - General 05/07/12 documented as of this encounter
--- OUTSIDE RECORDS SUMMARY | 2024-05-28 20:03 | XMS_ITS | Encounter Summary ---
Author Organization [facility] [place] [address] Care Team Providers Care Supervisor Tan Room Name Role Phone Adelita Charles MD Primary Care Provider [phone] Reason for Referral * Consultation (Routine) - Closed Specialty Diagnoses / Procedures Referred By Contac t Referred To Contact [facility] Diagnoses S/P lumbar laminectomy Spinal stenosis of lumbar region with neurogenic claudication Chronic bilateral low back pain, unspecified whether sciatica present Mychal Chapa MD [facility] [place] [address] [facility] [place] [address] Referral ID Status Reason Start Date Expiration Date V isits Requested Visits Authorized [id number] Closed Consult, Test & Treat 11/07/2021 11/07/2022 3 3 Encounter Details Date Type Department Care Team (Late st Contact Info) Description 11/04/2021 Orders Only [place] [address] Gianluca Payne RN S/P lumbar laminectomy; Spinal stenosis of lumbar region with neurogenic claudication; Chronic bilateral low back pain, unspecified whether sciatica present Social History Tobacco Use Types Packs/Day Years [...] as of this encounter Progress Notes * Gianluca Payne RN - 11/04/2021 3:20 PM EST Referral for comprehensive pain evaluation per Dr. Chapa. documented in this encounter Plan of Treatment Scheduled Referrals Name Type Priority Associated Diagnoses Orde r Schedule Referral to Pain and Spine Center (Internal only) Outpatient Referral Routine S/P lumbar laminectomy Spinal stenosis of lumbar region with neurogenic claudication Chronic bilateral low back pain, unspecified whether sciatica present Ordered: 11/07/2021 documented as of this encounter Visit Diagnoses Diagnosis S/P lumbar laminectomy Other postprocedural status Spinal stenosis of lumbar region with neurogenic claudication Spinal stenosis, lumbar region, with neurogenic claudication Chronic bilateral low back pain, unspecified whether sciatica present documented in this encounter Care Teams Supervisor Tan Room Relationship Specialty Start Date End Date Adelita Charles MD [address] [place] [address] PCP - General 05/07/12 documented as of this encounter
--- OUTSIDE RECORDS SUMMARY | 2024-05-28 20:03 | XMS_ITS | Clinical Summary ---
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 Active omeprazole (PriLOSEC) 20 mg Capsule, Delayed Release(E.C.) Take 20 mg by mouth Twice daily. Active oxygen-air delivery systems (HORIZON NASAL CPAP SYSTEM MISC) by [facility].(Non-Drug; Combo Route) route nightly. Active multivitamin Capsule Take 1 capsule by mouth daily. Active atenoloL-chlorthali done (TENORETIC) 50-25 mg Tablet Take 1 tablet by mouth nightly. Active levothyroxine (Synthroid) 75 mcg Tablet Take 75 mcg by mouth daily. Active cyclobenzaprine (Flexeril) 10 mg Tablet Take 1 tablet by mouth 3 times daily as needed for Muscle spasms. 25 tablet 05/05/2020 Active Additional Information Patient not taking.Reported on 04/18/2023 amLODIPine-benazepr iL (LOTREL) 10-20 mg Capsule Take 1 capsule by mouth nightly. 04/19/2020 Active allopurinoL (Zyloprim) 300 mg Tablet Take 300 mg by mouth daily. 09/21/2021 Active metFORMIN (GLUCOPHAGE) 1,000 mg Tablet Take 1,000 mg by mouth 2 times daily (with meals). 11/04/2021 Active potassium chloride (MICRO-K) 10 mEq Capsule, Sustained Release Take 10 mEq by mouth daily. 09/19/2021 Active OneTouch Delica Plus Lancet 33 gauge Misc 09/19/2021 Active acetaminophen (Tylenol) 500 mg Tablet Take 2 tablets by mouth every 8 hours as needed for Pain. 30 tablet 1 04/13/2022 Active atorvastatin (Lipitor) 20 mg Tablet Take 20 mg by mouth daily. 07/03/2022 Active OneTouch Ultra Test Strip 03/11/2023 Active aspirin 81 mg chewable tablet Take 81 mg by mouth daily. Active Active Problems Problem Noted Date Diagnosed Date S/P left total hip arthroplasty; Dr. Peterson 202104/13/2022 Pain in left hip 02/28/2022 Diabetes mellitus 02/28/2022 Hypertension 02/28/2022 s/p L3-4 laminectomy 05/05/[address] Chapa Spinal stenosis of lumbar region 04/05/2020 Social History Tobacco Use Types Packs/Day Years [...] Sign Reading Time Taken Comments Blood Pressure 142/68 04/13/2022 12:49 PM EDT Pulse 49 04/13/2022 12:49 PM EDT Temperature 36.5 ??C (97.7 ??F) 04/13/2022 12:49 PM E DT Respiratory Rate 20 04/13/2022 12:49 PM EDT Oxygen Saturation 98% 04/13/2022 12:49 PM EDT Inhaled Oxygen Concentration - - Weight 104.3 kg (230 lb) 04/13/2022 8:18 AM EDT Height 177.8 cm (5' 10) 04/13/2022 8:18 AM EDT Body Mass Index 33 04/13/2022 8:18 AM EDT Plan of Treatment Health Maintenance Due Date Last Done Comments CT Colonography 1960 Colonoscopy 1960 Colorectal Cancer Screening 1960 FIT DNA 1960 FIT 1960 Sigmoidoscopy (10 year) with FIT yearly 1960 Sigmoidoscopy 1960 Pneumococcal Vaccine: At-Risk 5-64yrs (1 of 2 - PCV) 0 01/27/1966 DM Creatinine yearly 01/27/1970 DM Hemoglobin A1c 01/27/1970 DM Opthalmology Exam 01/27/1970 DM Urine Microalbumin yearly 01/27/1970 HIV screen 01/27/1978 Hepatitis C Screening 01/27/1978 Tdap adult 01/27/1979 Tetanus vaccine 01/27/1979 Zoster vaccine (1 of 2) 01/27/2010 Advance Directive 01/27/2015 Covid-19 Vaccine (1 - 2022- season) 2023 Influenza (Flu) vaccine (1 o f 1 - Influenza standard series) 06/15/2024 Medical Devices Implanted Type Area Territory Service Representative Device Identifier Shelf Expiration Date Model / Serial / Lot Shell Acet Hip 52mm Por Solid Ti R3 ([id number]) ([employer]) - [id number] Implanted:Qty : 1 on 04/13/2022 by Bret Peterson MD at [facility] IMPLANTS Left: Hip [employer]W - SALAS NEPH 01/22/2032 [id number] / / [id number] Liner Acet Hip [id number] 0d Poly R3 ([id number]) ([employer]) - [id number] Implanted:Qty : 1 on 04/13/2022 by Bret Peterson MD at [facility] IMPLANTS Left: Hip [employer]HEW - SALAS NEPH 12/31/2031 [id number] / / [id number] Stem Femoral Hip Sz 2 Prox 135d Por Cllr Stnd Ofst Ti ([id number]) ([employer]) - [id number] Implanted:Qty : 1 on 04/13/2022 by Bret Peterson MD at [facility] IMPLANTS Left: Hip [employer]W - SALAS NEPH 09/13/2028 [id number] / / [id number] Head Femoral Hip 36mm +0mm Offset 09/27 Tpr Zircnm Oxinium ([id number]) ([employer]) - [id number] Implanted:Qty : 1 on 04/13/2022 by Bret Peterson MD at 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
--- OUTSIDE RECORDS SUMMARY | 2024-05-28 20:03 | XMS_ITS | Encounter Summary ---
Author Organization [facility] [place] [address] Care Team Providers Care Tail End Rider Name Role Phone Adelita Charles MD Primary Care Provider [phone] Reason for Visit * Auth/Cert Specialty Diagnoses / Procedures Referred By Pilar ho Referred To Contact Diagnoses Spinal stenosis Procedures PRO LAMINEC/FACETECT/FORAMIN, LUMBAR 1 SEG PRO LAMINEC/FACETECT/FORAMIN, EACH ADDNL LAMINECTOMY, FACETECTOMY & FORAMINOTOMY,LUMBAR, ONE LEVEL (WRVU 15.37) ADD'L INTERSPACES CX., THORACIC, LUMBAR (WRVU 3.47) MODIFIER L3 MODIFIER L4 Referral ID Status Reason Start Date Expiration Date Visits Re quested Visits Authorized [id number] 1 1 Encounter Details Date Type Department Care Team (Late st Contact Info) Description 05/05/2020 11:17 AM EDT - 05/05/2020 2:15 PM EDT Surgery [place] [id number] Mychal Lopez MD [facility] [place] [address] LAMINECTOMY, FACETECTOMY & FORAMINOTOMY,LUMBAR, ONE LEVEL (WRVU 15.37) Social History Tobacco Use Types Packs/Day Years [...] Sign Reading Time Taken Comments Blood Pressure 136/71 05/05/2020 2:15 PM EDT Pulse 90 05/05/2020 12:35 PM EDT Temperature 37 ??C (98.6 ??F) 05/05/2020 12:35 PM EDT Respiratory Rate 16 05/05/2020 2:15 PM EDT Oxygen Saturation 93% 05/05/2020 2:15 PM EDT Inhaled Oxygen Concentration - - Weight 108.9 kg (240 lb) 05/05/2020 6:11 AM EDT Height 177.8 cm (5' 10) 05/05/2020 6:11 AM EDT Body Mass Index 34.44 05/05/2020 6:11 AM EDT documented in this encounter Discharge Instructions * Patient Instructions* Kenny Abarca MD - 05/05/2020 12:25 PM EDT Orthopaedic Spine Surgery Discharge Instructions: Activity: 1. You may perform your daily activities as tolerated but minimize bending at the waist greater than 90 degrees, twisting around your waist, or lifting anything heavier than 5-10 lbs (about a full gallon of water). 2. In general, guide your activity by the thought that if it hurts, don???t do it. 3. In addition, we recommend taking several walks every day after surgery and gradually increasing your distance and duration over the next 2-4 weeks. Diet: 1. Eat your normal diet, with adequate amounts of protein and fiber. 2. Narcotic pain medications can cause constipation, so increase your intake of fluids and fiber ifyou are taking them. 3. You should also take an irdf-vwy-lpzhxhe stool softener of laxative, such as Meche-colace or Miralax, to facilitate a bowel movement. Drivin. You are not allowed to drive if you are still requiring narcotic pain medication to manage your discomfort. 2. In general, you may begin to drive once you are off of your pain medications and you are comfortable. Call the Spine Center or your Primary Care Physician if you have questions or concerns. Medication: 1. You are being discharged on a narcotic pain medication. Common side effects of this medication include drowsiness, nausea, and constipation. You should only take the smallest amount of pain medication that adequately controls your pain. 2. You may take Tylenol (acetaminophen) around the clock as directed on the package insert to help reduce the amount of narcotic medication you need. Do not take more than 3,000 mg of acetaminophen in a 24 hour period. 3. Ibuprofen or Aleve may also be taken with dosages as directed on package inserts. 4. If you need a renewal of your pain medication, please contact the Spine Center Nursing staff at [phone]. Nursing staff will need to talk with you directly prior to refilling any postoperativemedications. PRESCRIPTION RENEWAL REQUESTS CAN TAKE UP TO 2 BUSINESS DAYS TO PROCESS SO PLEASE PLANACCORDINGLY. Most pharmacies can now accept electronic narcotic pain medications prescriptions, butsome do not. Wound Care/Shower/Bath: 1. You have sutures that need to be removed 2-3 weeks after your surgery (between 05/19 and 05/26). This can be done by your local primary care provider, VNA Nurse (if ordered), or by a nurse at the [facility] Spine Center. Please call the Spine Center to obtain help with, or to confirm these arrangements. The sutures are covered by gauze and a clear plastic Tegaderm dressing. 2. This dressing should stay in place until 3 days after your surgery. After 3 days, on 05/08, you may remove the dressing and leave the incision uncovered as long as there is no continued drainage. If there is drainage, you should replace the dressing with a clean, dry gauze held in place with tape. If you replace the dressing, you will need to cover the dressing/incision with a waterproof dressin g prior to showering. Any bandage over the incision should be dry at all times and should be replaced if wet. If the incision continues to drain after the initial surgical dressing is removed, pleasecall the Spine Center at the number below. 3. For the first 3 days after surgery, shower with the clear plastic Tegaderm dressing covering your incision to keep it dry. Do not allow the shower to spray directly on your dressing. After showering check the dressing to make sure it remains dry and intact. After 3 days, once the dressing has been removed, you may allow water to run over the incision when you shower but do not scrub the surrounding skin. Gently pat dry with a clean, dry towel after showering. 4. Do not soak the incision underwater (i.e. lakes, pools, hot tubs, bath tubs, etc.) for at least 4 weeks until the incision has completely healed. PLEASE CALL US AT [phone] TO SPEAK WITH A SPINE CENTER NURSE IF YOU EXPERIENCE THE FOLLOWING: ?? Fevers greater than 101.5 degrees Fahrenheit ?? Chills or night sweats ?? Nausea or vomiting ?? Wound redness or drainage after the initial surgical dressing is removed ?? New numbness or tingling in your hands or feet ?? New incontinence of bowel or bladder ?? Any questions or concerns Important Phone Numbers: Clinical issues, nurse questions, medication renewals: [phone] (Mon-Fri 8am-5pm, excluding holidays) Appointments for Dr. Lopez: [phone] Evenings after 5pm and weekends you may contact the Orthopaedic resident scrap iron loader: [phone], askthe mushroom press operator to page the Orthopaedic resident Follow Up Appointments: 1. You will have follow-up appointments at [facility] as indicated in the ???Future Appointments and Orders?? section of your discharge summary. If X-rays have been ordered for you prior to this appointment you will need to report to the Radiology department, desk 3T, 1 hour prior to your spine center appointment. 2. If you do not have a scheduled follow-up appointment listed at the time of discharge, you will be notified of your scheduled appointment on the next business day. Please call [phone] if you do not hear from us by that time, as your timely follow-up is very important to us. Future Appointments Date Time Provider Department Center 06/07/2020 1:20 PM Mcyhal Lopez MD [facility] Pain Sp [facility] 06/07/2020 2:00 PM Treasure Avendano, RANDY [facility] Pain Sp [facility] documented in this encounter Medications at Time of Discharge Medication Sig Dispensed Refills Start Date End Date amLODIPine-benazepriL (LOTREL) 10-20 mg Capsule Take 1 capsule by mouth nightly. 04/19/2020 cyclobenzaprine (Flexeril) 10 mg Tablet Take 1 tablet by mouth 3 times daily as needed for Muscle spasms. 25 tablet 05/05/2020 multivitamin Capsule Take 1 capsule by mouth daily. atenoloL-chlorthalidon e (TENORETIC) 50-25 mg Tablet Take 1 tablet by mouth nightly. levothyroxine (Synthroid) 75 mcg Tablet Take 75 mcg by mouth daily. hydrOXYzine (Atarax) 25 mg Tablet Take 25 mg by mouth Every 8 hours as needed. omeprazole (PriLOSEC) 20 mg Capsule, Delayed Release(E.C.) Take 20 mg by mouth Twice daily. oxygen-air delivery systems (HORIZON NASAL CPAP SYSTEM MISC) by [facility]Non-Drug; Combo Route) route nightly. oxyCODONE (Roxicodone) 5 mg Tablet Take 1-2 tablets by mouth every 4 hours as needed for Pain. Take the smallest dose possible to control your pain. As your pain improves take smaller, less frequent doses. You may break the tablet to achieve a smaller dose. 40 tablet 05/05/2020 02/28/2022 ibuprofen (Advil;Motrin) 600 mg Tablet Take 1 tablet by mouth every 6 hours as needed for Pain. 30 tablet 05/05/2020 03/01/2022 acetaminophen (Tylenol) 500 mg Tablet Take 2 tablets by mouth every 8 hours. Take as directed around the clock for ten days after your surgery. After that you can take Tylenol as needed per package insert. 05/05/2020 04/13/2022 polyethylene glycoL (Miralax) 17 gram Powder in Packet Take 17 g by mouth 2 times daily. Take to maintain normal bowel pattern while taking narcotic pain medication. 05/05/2020 04/13/2022 senna-docusate (Pericolace) 8.6-50 mg Tablet Take 2 tablets by mouth 2 times daily. Take to maintain normal bowel pattern while taking narcotic pain medication. 05/05/2020 04/13/2022 gabapentin (Neurontin) 100 mg Capsule Take 100 mg by mouth 3 times daily. 02/03/2020 04/10/2022 allopurinoL (Zyloprim) 100 mg Tablet Take 300 mg by mouth Daily. 02/28/2022 aspirin 81 mg Tablet, Chewable Take 81 mg by mouth Daily. 04/13/2022 losartan (Cozaar) 50 mg Tablet Take 50 mg by mouth Daily. 04/06/2022 metFORMIN (Glucophage) 500 mg Tablet Take 1,000 mg by mouth Twice daily. 02/28/2022 potassium chloride SA (K-DUR;KLOR-CON) 10 mEq Tab Sust.Rel. Particle/Crystal Take 10 mEq by mouth Daily. 02/28/2022 SITagliptin (Januvia) 50 mg Tablet Take 50 mg by mouth Daily. 04/06/2022 UNABLE TO FIND 2 tablets as needed. Med Name: OTC Arthritis Mediation 04/13/2022 documented as of this encounter Progress Notes * J Luis Christianson RN - 05/05/2020 2:13 PM EDT Patient and stated understanding of discharge instructions and had not questions at this time.Prescription given to . documented in this encounter H&P Notes * Mychal Lopez MD - 05/05/2020 7:55 AM EDT The patient's history and physical exam have been reviewed and completed.There has there is no change since her H&P done within 30 days of today. Please see H&P and Dr. Lopez's clinic note for more details. Exam: Patient exhibits 5/5 motor in bilateral lower extremities, and 2/2 sensory to light touch in bilateral lower extremities. OR plan for today: L3-4 decompression for central canal stenosis and neurogenic claudication Kenny Abarca MD Orthopaedic Surgery Pager [phone] Spine Attending I have seen and examined the patient and agree with the resident's findings and plan. Pt cont to have LBP radiating to BLE. Will proceed with L3-L4 laminectomy. documented in this encounter Miscellaneous Notes * Op Note - Mychal Lopez MD - 05/05/2020 12:28 PM EDT [facility] Operative Note Patient Name: Kaushik Clemons : [id number] MR#: [id number] Case Date: 05/05/2020 Surgeon: Surgeon(s) and Role: * Mychal Lopez MD - Primary * Kenny Abarca MD - Resident Preoperative diagnosis: Spinal stenosis Postoperative diagnosis: Spinal stenosis Procedure: L3-L4 laminectomy with medial facetectomies and foraminotomies Anesthesia: General Operative findings: There was moderate-severe central and lateral recess stenosis at L3-L4. At the conclusion of the case, bilateral L3 and L4 roots and the thecal sac were fully decompressed. Indications for procedure: Mr. Clemons is a 60-year-old male who presented with longstanding back pain and neurogenic claudication in the setting of spinal stenosis at L3-L4. He failed to improve despite nonoperative treatment and elected to undergo surgery after a full discussion of the potential risks and benefits thereof. Description of procedure: The patient was taken to the operating room, and general anesthesia was administered. He was positioned prone on the Davidson spine table with all bony prominences well-padded and his legs in the sling. A timeout was performed to identify the patient and the planned procedure. He received preoperative antibiotics. The back was prepped with Hibiclens and DuraPrep and draped in the usual sterile fashion. The area of the planned incision was injected with 20 cc of 0.25% Marcaine. A midline incision was made centered on the L3-L4 interspace. The electrocautery was used to dissect down to the level of the fascia, which was divided in the midline. The paraspinal muscles were elevated from the spinous processes and laminae of L3 and L4 out to the level of the pars. A [place] was placed caudal to the L3 lamina, and a lateral x-ray was obtained demonstrating our level. The L3 spinous process and cranial portion of the L4 spinous process were taken down with a rongeur. The L3 lamina and cranial portion of the L4 lamina were thinned with a rongeur. The ligamentum flavum was elevated from the cranial edge of the L4 lamina, and a central L4 laminectomy was performed down to the level of the L4 pedicle. We then used our [place] to create a central laminectomy trough up to the level of the L3 pedicle. We then turned our attention to the lateral decompression. We started on the right side. We performed a foraminotomy at L3-L4 and confirmed that the exiting L3 nerve root was fully decompressed. We performed a medial facetectomy at L3-L4 and confirmed that the traversing L4 nerve root was fully decompressed. We performed a foraminotomy at L4-L5 and confirmed that the exiting L4 nerve was fully decompressed. We performed a similar decompression on the left side. Following decompression, we confirmed that bilateral L3 and L4 nerve roots and the thecal sac were fully decompressed. Hemostasis was achieved in the epidural space using a combination of the bipolar and FloSeal. The wound was copiously irrigated. 1 g of vancomycin powder was placed in the incision. The fascia was closed using interrupted #1 Vicryl. The subcutaneous tissue was closed with interrupted 2-0 Vicryl. The skin was closed using 3-0 nylon in a vertical mattress fashion. The incision was injected with an additional 20 cc of 0.25% Marcaine. The incision was dressed with a Mepilex dressing. The patient was transferred to the stretcher and awakened from general anesthesia. He was taken to the recovery room in stable condition. There were no evident complications. Attestation: Case Date: 05/05/2020 I was present and I participated during the entire procedure (does not need to include opening and closing). MYCHAL LOPEZ MD 05/05/2020 * Brief Op Note - Mychal Lopez MD - 05/05/2020 12:26 PM EDT Brief Operative Note Patient Name: Kaushik Clemons : [id number] MR#: [id number] Case Date: 05/05/2020 Surgeon: Surgeon(s) and Role: * Mychal Lopez MD - Primary * Kenny Abarca MD - Resident Preoperative diagnosis: Spinal stenosis Postoperative diagnosis: Spinal stenosis Procedure: L3-L4 laminectomy (31561, 88202) Anesthesia: General Findings: There was moderate-severe central and lateral recess stenosis at L3- L4. At the conclusionof the case, bilateral L3 and L4 roots and the thecal sac were fully decompressed. No CSF. Complications: None Intake: 1 L crystalloid Output: Estimated Blood Loss: 50 mL Drains: None Specimens removed during surgery: None Disposition: awakened from anesthesia, extubated and taken to the recovery room in a stable condition, having suffered no apparent untoward event. Condition: doing well without problems Attestation: Case Date: 05/05/2020 I was present and I participated during the entire procedure (does not need to include opening and closing). (Please see the Surgical Encounter Summary for any Implant and Specimen details pertinent to this patient.) documented in this encounter Plan of Treatment Not on file documented as of this encounter Procedures Procedure Name Priority Date/Time Associated Diagnosis Comments POCT GLUCOSE Routine 05/05/2020 12:46 PM EDT XR LUMBAR SPINE 1 VIEW Routine 05/05/2020 11:15 AM EDT MODIFIER L4 05/05/2020 10:15 AM EDT Spinal stenosis of lumbar region with neurogenic claudication MODIFIER L3 05/05/2020 10:15 AM EDT Spinal stenosis of lumbar region with neurogenic claudication Rainey Facetectomy&Foramot 1 Vrt Sgm Ea Addl Sgm ([id number]) 05/05/2020 10:15 AM EDT Spinal stenosis of lumbar region with neurogenic claudication Laminec/Facetect/For kramer, Lumbar 1 Seg ([id number]) 05/05/2020 10:15 AM EDT Spinal stenosis of lumbar region with neurogenic claudication POCT GLUCOSE Routine 05/05/2020 6:17 AM EDT ADD'L INTERSPACES CX., THORACIC, LUMBAR Routine 05/05/2020 5:56 AM EDT Spinal stenosis of lumbar region with neurogenic claudication documented in this encounter Results * POCT Glucose (05/05/2020 12:46 PM EDT) Glucose, POC 171 65 - 199 mg/dL [facility] Comment: Supplemental ranges: <140 mg/dL before meals <180 mg/dL all other times of the day Blood specimen (specimen) 05/05/2020 12:46 PM EDT 05/05/2020 12:46 PM EDT Mychal Lopez MD POINT OF CARE TEST O RDERABLES [facility] [place] [address] * XR Lumbar Spine 1 View (05/05/2020 11:15 AM EDT) Anatomical Region Laterality Modality L-spine N/A Digital Radiogra phy Impressions 05/05/2020 1:33 PM EDT Intraoperative film to facilitate surgical planning. Thank you for letting us participate in the care of this patient. For questions regarding this report, please contact the number below. ? Narrative 05/05/2020 1:33 PM EDT EXAMINATION: XR LUMBAR SPINE 1 VIEW CLINICAL HISTORY: intraoperative level confirmation TECHNIQUE: 1 view of the lumbar spine: Single portable intraoperative crosstable lateral radiograph of the lumbar spine 05/05/2020 electronically time stamped 1109 hours COMPARISON: Radiographs of lumbar spine 04/05/2020 FINDINGS: Anatomic localizer device projects posterior to the inferior endplate of L3. Degenerative disc disease, spondylosis, and facet arthropathy at the mid and lower levels redemonstrated. Stable alignment. Procedure Note Nisha Colon MD - 05/05/2020 EXAMINATION: XR LUMBAR SPINE 1 VIEW CLINICAL HISTORY: intraoperative level confirmation TECHNIQUE: 1 view of the lumbar spine: Single portable intraoperative crosstablelateral radiograph of the lumbar spine 05/05/2020 electronically time stamped 1109hours COMPARISON: Radiographs of lumbar spine 04/05/2020 FINDINGS: Anatomic localizer device projects posterior to the inferior endplate ofL3. Degenerative disc disease, spondylosis, and facet arthropathy at the midand lower levels redemonstrated. Stable alignment. IMPRESSION Intraoperative film to facilitate surgical planning. Thank you for letting us participate in the care of this patient. Forquestions regarding this report, please contact the number below. Mychal Lopez MD IMG DX ORDERABLES * POCT Glucose (05/05/2020 6:17 AM EDT) Glucose, POC 145 65 - 199 mg/dL [facility] Comment: Supplemental ranges: <140 mg/dL before meals <180 mg/dL all other times of the day Blood specimen (specimen) 05/05/2020 6:17 AM EDT 05/05/2020 6:17 AM EDT Mychal Lopez MD POINT OF CARE TEST O RDERABLES Performing Organization Address City/State/[facility] Co de Phone Number [facility] [place] [address] documented in this encounter Visit Diagnoses Diagnosis s/p L3-4 laminectomy 05/05/[address] Lopez- Primary Other postprocedural status Spinal stenosis of lumbar region with neurogenic claudication Spinal stenosis, lumbar region, with neurogenic claudication Spinal stenosis of lumbar region Spinal stenosis, lumbar region, without neurogenic claudication Spinal stenosis of lumbar region with neurogenic claudication Spinal stenosis, lumbar region, with neurogenic claudication documented in this encounter Administered Medications Inactive Administered Medications - up to 3 most recent administrations Medication Order MAR Action Action Date Dose Rate Site BUpivacaine-EPINEPHrine 0.25 %-1:200,000 injection ONCE PRN, Starting on Sun05/05/20 at 1052, Until Sun05/05/20 at 1716, Intra-Operative (Intra-Procedure), Routine Given 05/05/2020 10:52 AM EDT 20 mLs 19- Surgical Site cyclobenzaprine (Flexeril) tablet 10 mg 10 mg, Oral, 3 TIMES DAILY PRN, Starting on Sun05/05/20 at 1306, Until Sun05/05/20 at 1716, Muscle spasms, Routine Given 05/05/2020 1:36 PM EDT 10 mg lactated ringers infusion 1,000 mL, at 100 mL/hr, Intravenous, CONTINUOUS, Starting on Sun05/05/20 at 0745, Until Sun05/05/20 at 1514, Day of Surgery (Day of Procedure) New Bag 05/05/2020 10:09 AM EDT New Bag 05/05/2020 7:50 AM EDT 1,000 mLs 100 mL/hr lidocaine (XYLOCAINE) 10 mg/mL (1 %) injection 3 mg 3 mg (0.3 mL), Subcutaneous, ONCE PRN, 1 dose, Starting on Sun05/05/20 at 0721, Until Sun05/05/20 at 0750, for discomfort with PIV insertion, Day of Surgery (Day of Procedure), Routine Given 05/05/2020 7:50 AM EDT 3 mg ondansetron (ZOFRAN) injection 4 mg 4 mg, Intravenous, EVERY 30 MIN PRN, Starting on Sun05/05/20 at 1233, Until Sun05/05/20 at 1514, Nausea, May repeat 4 mg once in 30 minutes. If multiple antiemetics ordered, use ondansetron first and if ineffective use prochlorperazine second and if ineffective use promethazine, PACU Recovery Given 05/05/2020 1:29 PM EDT 4 mg oxyCODONE (Roxicodone) tablet 10 mg 10 mg, Oral, EVERY 4 HOURS PRN, Starting on Sun05/05/20 at 1227, Until Sun05/05/20 at 1716, Pain, severe pain (7-10), Routine oxyCODONE (Roxicodone) tablet 5 mg 5 mg, Oral, EVERY 4 HOURS PRN, Starting on Sun05/05/20 at 1227, Until Sun05/05/20 at 1716, Pain, mild to moderate pain (1-6), May give an additional 5 mg in 30 minutes once if pain not relieved., Routine documented in this encounter Active and Recently Administered Medications Times are shown in EDT. Scheduled Medication Order 05/03/2020 05/04/2020 05/05/2020 ceFAZolin (Ancef) 2g in dextrose 5% 100 mL (COMPLETED) 2 g, Intravenous, EVERY 3 HOURS, 1 dose, First dose on Sun05/05/20 at 0630, Administer over 30 Minutes, Redose after 3 hours., Intra-Operative (Intra-Procedure), Indication for (Active or Suspected): Prophylaxis 1024 (Given - Provid er: Vicky Hernández CRNA) Continuous Medication Order 05/03/2020 05/04/2020 05/05/2020 lactated ringers infusion (CANCELED) 1,000 mL, at 100 mL/hr, Intravenous, CONTINUOUS, Starting on Sun05/05/20 at 0745, Until Sun05/05/20 at 1514, Day of Surgery (Day of Procedure) 0750 (New Bag - Prov ider: Perla Nichols RN)1009 (New Bag - Provider: Vicky Hernández CRNA)1150 (Anesthesia Volume Adjustment - Provider: Vicky Hernández CRNA)1218 (Stopped - Provider: Vicky Hernández CRNA) PRN Medication Order 05/03/2020 05/04/2020 05/05/2020 BUpivacaine-EPINEPHrine 0.25 %-1:200,000 injection (CANCELED) ONCE PRN, Starting on Sun05/05/20 at 1052, Until Sun05/05/20 at 1716, Intra-Operative (Intra-Procedure), Routine 1052 (Given - Provid er: Mychal Lopez MD) cyclobenzaprine (Flexeril) tablet 10 mg 10 mg, Oral, 3 TIMES DAILY PRN, Starting on Sun05/05/20 at 1306, Until Sun05/05/20 at 1716, Muscle spasms, Routine 1336 (Given - Provid er: Joan Bloom RN) lidocaine (XYLOCAINE) 10 mg/mL (1 %) injection 3 mg (COMPLETED) 3 mg (0.3 mL), Subcutaneous, ONCE PRN, 1 dose, Starting on Sun05/05/20 at 0721, Until Sun05/05/20 at 0750, for discomfort with PIV insertion, Day of Surgery (Day of Procedure), Routine 0750 (Given - Provid er: Perla Nichols RN) ondansetron (ZOFRAN) injection 4 mg (CANCELED) 4 mg, Intravenous, EVERY 30 MIN PRN, Starting on Sun05/05/20 at 1233, Until Sun05/05/20 at 1514, Nausea, May repeat 4 mg once in 30 minutes. If multiple antiemetics ordered, use ondansetron first and if ineffective use prochlorperazine second and if ineffective use promethazine, PACU Recovery 1329 (Given - Provid er: Joan Bloom RN) oxyCODONE (Roxicodone) tablet 10 mg(Linked Group 1) 10 mg, Oral, EVERY 4 HOURS PRN, Starting on Sun05/05/20 at 1227, Until Sun05/05/20 at 1716, Pain, severe pain (7-10), Routine oxyCODONE (Roxicodone) tablet 5 mg(Linked Group 1) 5 mg, Oral, EVERY 4 HOURS PRN, Starting on Sun05/05/20 at 1227, Until Sun05/05/20 at 1716, Pain, mild to moderate pain (1-6), May give an additional 5 mg in 30 minutes once if pain not relieved., Routine Linked Groups Order Group 1: oxyCODONE (Roxicodone) tablet 5 mgJump to med 5 mg, Oral, EVERY 4 HOURS PRN, Starting on Sun05/05/20 at 1227, Until Sun05/05/20 at 1716, Pain, mild to moderate pain (1-6), May give an additional 5 mg in 30 minutes once if pain not relieved., Routine Or oxyCODONE (Roxicodone) tablet 10 mgJump to med 10 mg, Oral, EVERY 4 HOURS PRN, Starting on Sun05/05/20 at 1227, Until Sun05/05/20 at 1716, Pain, severe pain (7-10), Routine documented in this encounter Care Teams Tail End Rider Relationship Specialty Start Date End Date Adelita Charles MD [address] [place] [address] PCP - General 05/07/12 documented as of this encounter
--- OUTSIDE RECORDS SUMMARY | 2024-05-28 20:03 | XMS_ITS | Encounter Summary ---
Author Organization [facility] Address [facility] [place] [address] Care Team Providers Care Cottage Supervisor Name Role Phone Adelita Charles MD Primary Care Provider [phone] Reason for Visit * Reason Onset Date Comments Questions 11/16/2021 re call. Encounter Details Date Type Department Care Team (Late st Contact Info) Description 11/16/2021 Telephone [facility] [place] [address] Gardenia Grossman, RN Questions (re call.) Social History Tobacco Use Types Packs/Day Years [...] encounter Miscellaneous Notes * Telephone Encounter - Gardenia Grossman RN - 11/16/2021 9:19 AM EST Received call from pt who expressed interest in having the comprehensive pain eval as requested by Dr Chapa perfoemed by Dr Juliet Westbrook at [facility] in [place]. Called [facility] [phone]; spoke to Adelita confirming they do Comprehensive Pain Eval;not procedures only. Informed they do not prescribe opioids; which is not the service we are looking form. If other meds were suggested they would make recommendations to local PCP; they could provide procedures if indicated. Provider Adelita the info re referral/insurance Given pt's insurance, Adelita advised that a formal referral was not needed. Informed Adelita I would fax her our internal referral, pertinent notes, and radiographic reports ( fax # [phone]); that I would also request our image library push imagine [facility] ~ 9:40 Called [facility] [place] [facility]; spoke to Omid, requesting the 06/07 Lumbar Spine Xray be e-transferred to [facility], attention Dr Juliet Copeland. Omid agreed to push the reqyested XR this afternoon. ~ 9:45Faxed: referral and corresponding notes to [facility] as referenced above. ~ 10 am Called pt; left a detailed VM message advising that we had sent referral and corresponding info to [facility] and that they should be calling him to arrange an appt with Dr Dr Juliet Westbrook. Informed our looping machine operator of this plan so they could close but [facility] internal pain referral for record. 11:43 Pt returned plan. Informed him that [facility] does provide the service that Dr Chapa was requesting; that the referral and notes were sent to them, attention Juliet Copeland and that [facility] office should be calling to set up the appt. Informed pt that Dr Manning does not prescribe opioids for Chronica pain; explained that most providers do not as it is not generally indicated for chronic non-cancerous pain. Explained if other non opioid meds are recommended- that Dr Westbrook would likely work with his PCP. Infrmed pt that I had left a VM for him; that he could now delete as we had reviewed content of [employer] . Pt understands he should expect call fro [facility] documented in this encounter Plan of Treatment Not on file documented as of this encounter Visit Diagnoses Not on filedocumented in this encounter Care Teams Cottage Supervisor Relationship Specialty Start Date End Date Adelita Charles MD [address] [place] [address] PCP - General 05/07/12 documented as of this encounter
--- OUTSIDE RECORDS SUMMARY | 2024-05-28 20:03 | XMS_ITS | Encounter Summary ---
Author Organization [facility] Address [facility] [place] [address] Care Team Providers Care Admittance Attendant Name Role Phone Adelita Charles MD Primary Care Provider [phone] Reason for Referral * Physical Therapy (Routine) - Closed Specialty Diagnoses / Procedures Referred By Pilar ho Referred To Contact Physical Therapy Diagnoses Status post total replacement of left hip Bret Peterson MD [address] [place] [address] [facility] [address] Referral ID Status Reason Start Date Expiration Date V isits Requested Visits Authorized [id number] Closed Evaluate and Treat 04/21/2022 10/18/2022 12 12 Encounter Details Date Type Department Care Team (Late st Contact Info) Description 04/21/2022 Orders Only Orthopaedics at [facility] [place] [address] [place] [id number] Bret Peterson MD [address] [place] [address] Status post total replacement of left hip [...] as of this encounter Plan of Treatment Scheduled Referrals Name Type Priority Associated Diagnoses Orde r Schedule Referral to Physical Therapy Outpatient Referral Routine Status post total replacement of left hip Ordered: 04/21/2022 documented as of this encounter Visit Diagnoses Diagnosis Status post total replacement of left hip documented in this encounter Care Teams Admittance Attendant Relationship Specialty Start Date End Date Adelita Charles MD [address] [place] [id number] PCP - General 05/07/12 documented as of this encounter
--- OUTSIDE RECORDS SUMMARY | 2024-05-28 20:03 | XMS_ITS | Encounter Summary ---
Author Organization [facility] Address [facility] [place] [address] Care Team Providers Care Early Childhood Special Educator Name Role Phone Adelita Charles MD Primary Care Provider [phone] Encounter Details Date Type Department Care Team (Latest Contact Info) Description 06/07/2020 12:20 PM EDT - 06/07/2020 11:59 PM EDT Hospital Encounter XRay at [address] [place] [address] Mychal Chapa MD [facility] [place] [address] Spinal stenosis of lumbar region with neurogenic claudication Discharge Disposition: Home Social History Tobacco Use Types Packs/Day Years [...] systems (HORIZON NASAL CPAP SYSTEM MISC) by [facility].(Non-Drug; Combo Route) route nightly. oxyCODONE (Roxicodone) 5 [...] Mediation 04/13/2022 documented as of this encounter Plan of Treatment Not on file documented as of this encounter Procedures Procedure Name Priority Date/Time Associated Diagnosis Comments XR LUMBAR SPINE 2 OR 3 VIEWS Routine 06/07/2020 12:30 PM EDT Spinal stenosis of lumbar region with neurogenic claudication documented in this encounter Results * XR Lumbar Spine 2 Or 3 Views (Generic) (06/07/2020 12:30 PM EDT) Anatomical Region Laterality Modality L-spine N/A Digital Radiogra phy Impressions 06/07/2020 1:18 PM EDT 1. ??Spondylosis of lumbar spine 2. ??No subluxation seen. 3. ??Unchanged L3-4 laminectomy. Thank you for letting us participate in the care of this patient. For questions regarding this report, please contact the number below. ? Narrative 06/07/2020 1:18 PM EDT EXAMINATION: XR LUMBAR SPINE 2 OR 3 VIEWS (GENERIC) CLINICAL HISTORY: s/p surgery, , entered by ordering service TECHNIQUE: 3 views lumbar spine AP lateral and coned-down lower lumbar spine diffuse COMPARISON: Radiographs, May 05, 2020. FINDINGS: Number of non-rib bearing lumbar-type vertebrae: 5 Recent L3-4 laminectomy. Vertebral bodies: Normal vertebral height. No vertebral fracture. Osteophytes arise from vertebral bodies and facet joints. Disk spaces: Unchanged narrowed L5-S1 disc space. Soft tissues: ??Normal. ?? Alignment: No subluxation SI joints-degenerative change with osteophytes and subchondral sclerosis, unchanged. Procedure Note Stacia Byers MD - 06/07/2020 EXAMINATION: XR LUMBAR SPINE 2 OR 3 VIEWS (GENERIC) CLINICAL HISTORY: s/p surgery, , entered by ordering service TECHNIQUE: 3 views lumbar spine AP lateral and coned-down lower lumbarspine diffuse COMPARISON: Radiographs, May 05, 2020. FINDINGS: Number of non-rib bearing lumbar-type vertebrae: 5 Recent L3-4 laminectomy. Vertebral bodies: Normal vertebral height. No vertebral fracture.Osteophytes arise from vertebral bodies and facet joints. Disk spaces: Unchanged narrowed L5-S1 disc space. Soft tissues: Normal. Alignment: No subluxation SI joints-degenerative change with osteophytes and subchondralsclerosis, unchanged. IMPRESSION 1. Spondylosis of lumbar spine 2. No subluxation seen. 3. Unchanged L3-4 laminectomy. Thank you for letting us participate in the care of this patient. Forquestions regarding this report, please contact the number below. Mychal Chapa MD IMG DX ORDERABLES documented in this encounter Visit Diagnoses Diagnosis Spinal stenosis of lumbar region with neurogenic claudication Spinal stenosis, lumbar region, with neurogenic claudication documented in this encounter Care Teams Early Childhood Special Educator Relationship Specialty Start Date End Date Adelita Charles MD [address] [place] [address] PCP - General 05/07/12 documented as of this encounter
--- OUTSIDE RECORDS SUMMARY | 2024-05-28 20:03 | XMS_ITS | Encounter Summary ---
Author Organization [facility] Address [facility] [address] Care Team Providers Care Antisubmarine Weapons Officer Name Role Phone Adelita Charles MD Primary Care Provider [phone] Encounter Details Date Type Department Care Team (Late st Contact Info) Description 12/30/2021 Ancillary Procedure [place] [phone] Adelita Charles MD [address] [place], [place] [id number] Social History Tobacco Use Types Packs/Day Years [...] Diagnosis Comments FILM LIBRARY STORAGE ONLY DX SPINE Routine 12/30/2021 12:00 AM EDT documented in this encounter Results * Film Library- Storage Only DX Spine (12/30/2021 12:00 AM EDT) Narrative [facility] - 02/15/2022 11:14 AM EDT This exam is auto-finalizing. It's purpose is for storage only. Adelita Charles MD IMG FILM LIBRARY ORD ERABLES [place], [place] documented in this encounter Visit Diagnoses Not on filedocumented in this encounter Care Teams Antisubmarine Weapons Officer Relationship Specialty Start Date End Date Adelita Charles MD [address] [place] [address] PCP - General 05/07/12 documented as of this encounter
--- OUTSIDE RECORDS SUMMARY | 2024-05-28 20:03 | XMS_ITS | Encounter Summary ---
Author Organization [place] [place] [address] Care Team Providers Care Environmental Field Services Technician Name Role Phone Adelita Charles MD Primary Care Provider [phone] Reason for Visit * Reason Comments Follow Up Surgery LT THR 04/13/2022 Encounter Details Date Type Department Care Team (Late st Contact Info) Description 07/07/2022 2:30 PM EDT Office Visit Orthopaedics at [facility] [address] [place] [phone] Jeannette Echols PA [address] [facility] [place] [address] Status post total replacement of left hip [...] as of this encounter Progress Notes * Jeannette Echols PA - 07/07/2022 2:30 PM EDT Date of Surgery: 04/13/2022 Procedure: Left total hip arthroplasty via direct anterior approach Kaushik Clemons is a 62 y.o. male presents today for a second postoperative visit after undergoing a total hip arthroplasty with Dr. Peterson. At the last visit he reported that he was doing well, he was having no pain in the hip, only stiffness. He started outpatient PT and was seeing them once a week. Today he reports doing well. No pain or concerns, overall he is pleased with how his hip is functioning for him. Leg Length Discrepancy: denies Review of Systems: Constitutional: Denies fever, chills, fatigue Cardiovascular: Denies chest pain Respiratory: Denies shortness of breath Gastrointestinal: Denies nausea, vomiting, diarrhea, constipation or abdominal pain Neurovascular: Denies numbness or tingling Musculoskeletal: Admits no pain Psychiatric: Mood and affect appropriate PHYSICAL EXAM: Well-appearing male in NAD. A&O x 3 and answers all questions appropriately. Easily gets up from a seated position. Normal gait. Leg lengths are equal Left hip: No tenderness to palpation over the anterior hip or greater trochanter. Incision is well healed without erythema or drainage. Hip ROM: 100 degrees flexion, 20 degrees IR, 40 degrees ER, 30 degrees abduction Strength: 5/5 hip flexion, 5/5 abduction, 5/5 adduction Calves are soft and nontender. Negative Davie's. X-RAYS: AP pelvis and frog leg lateral views were obtained and demonstrate a stable, well seated total hip arthroplasty in good position with no evidence of loosening, subsidence or periprosthetic fracture. Lucency at the medial femoral cortex at the distal femoral stem only visible on the lateral projection remains unchanged, no surrounding callus formation likely a vascular channel ASSESSMENT: 3 months s/p Left total hip arthroplasty via direct anterior approach with Dr. Peterson. PLAN: Kaushik is a 62-year-old gentleman who I am seeing today for 3-month follow-up after undergoing a lefttotal hip arthroplasty. He tells me that he is doing well. He is quite pleased with the outcome of his hip replacement. He is having some restless leg symptoms at night. I recommended adequate hydration during the day consider iron or magnesium. If his symptoms or not improving then he will contacthis PCP for further treatment recommendations. As far as the hip is concerned he has no further lifting restrictions. I encouraged him to slowly and gradually increase his activity to tolerance. I reminded him that recovery after arthroplasty can take up to a year. We will plan to see him back for his 1 year anniversary with x-rays. He knows that he can call in the interim should he have any questions or concerns and we would be happy to see him sooner. We discussed the appropriate precautions surrounding dental prophylaxis. The patient should avoid elective dental procedures for the first 6 months after surgery. After 6 months, antibiotics will notbe required for routine dental cleanings. Patient advised to call our office before any more invasive dental work to determine if a prophylactic antibiotic is warranted. documented in this encounter Plan of Treatment Not on file documented as of this encounter Visit Diagnoses Diagnosis Status post total replacement of left hip documented in this encounter Care Teams Environmental Field Services Technician Relationship Specialty Start Date End Date Adelita Charles MD [address] [place] [address] PCP - General 05/07/12 documented as of this encounter
--- OUTSIDE RECORDS SUMMARY | 2024-05-28 20:03 | XMS_ITS | Encounter Summary ---
Author [facility] [place] [address] Care Team Providers Care Porcelain Turner Name Role Phone Adelita Charles MD Primary Care Provider [phone] Reason for Visit * Reason Onset Date Comments Pre Procedure Call 04/06/2020 Encounter Details Date Type Department Care Team (Late st Contact Info) Description 04/06/2020 Telephone [place] [address] Odalis Yung RN Pre Procedure Call Social History Tobacco Use Types Packs/Day Years Used Date Smoking Tobacco: Former Cigarettes Smokeless Tobacco: Never Sex and Gender Information Value Date Recorded Sex Assigned at Not on file Gender Identity Not on file Sexual Orientation Not on file documented as of this encounter Miscellaneous Notes * Telephone Encounter - Odalis Yung RN - 04/08/2020 11:24 AM EDT Met with today following the surgical evaluation for purpose of providing pre and post operative instructions and to plan for any pre/post- operative discharge needs. Pre-op Medication Holds: Advised pt of need to hold anticoagulants, NSAIDs, ASA products, and Fish Oil for ~10 days preoperatively. Reviewed medication list. Pt agreed to hold Baby Aspirin as instructed. Mr Clemons is not noted to be taking any prescription anticoagulants. Opioid Risks and Pain Management: Reviewed salient points within Acute Opioid Therapy Informed Consent. denies any questionsor concerns. Offered pt a copy of consent for home reference. Signed Consent Form passed to the [place] OR nail setter for scanning. Reviewed with that he is likely to experience some postoperative incisional and extremity pain, to include expectations re potential new or increased N/T. Explained that the timing and intensity of this pain is variable. Reviewed in detail non-opioid pain mgmt strategies that should be put in place postoperatively to minimize opioid use. Strategies discussed included: rest and relaxation, activity modification, regular repositioning, regular Acetaminophen & Ibuprofen use, hourly ice application for local analgesia/inflammation. Explained that the non-opioid pain mgmt strategies are intended to be the first line of treatment to assist with his postop pain. Instructed to Initiate the regular use of ice and OTC medication immediately upon return home, even if this was not documented in his dischargeinstructions. Reinforced with pt that he should continue the non-opioid pain mgmt treatments for aslong as he is requiring any opioids; that the opioid is the first treatment that should be discontinued. Advised that any opioid pain medication that is prescribed is to be used to supplement thenon-opioid methods. Advised pt that he is to take the least amt of opioid possible, and the expectation is that he will reduce use as the postoperative pain subsides. Advised pt that he should never exceed the prescribed amt without obtaining authorization from the prescribing provider. See PDMP query below. Reviewed current and historical opioid use. None Acute post-operative pain mgmt is expected to be managed by: Mychal Chapa MD Provided instructions and general expectations re prescription refill practices/timing. Acute Opioid Prescribing: Opioid [place] 04/06/2020 [place] Query Date 04/06/2020 Comment Query done. No meds, no concerns. No flowsheet data found. Acute Opioid Specific Questions 04/06/2020 Date Acute Consent signed 04/06/2020 Comment Discussed and reviewed opioid consent. No questions. Patient expresses understanding. Declines a copy. Considered the risk of opioid misuse, abuse, diversion? Yes Comment Discussed and reviewed opioid consent. No questions. Patient expresses understanding. Declines a copy. Considered options for non-pharmacological modalities and non-opioid therapy? Yes Comment Discussed and reviewed the use of ice, repositioning, Tylenol and Ibuprofen as the first line of defense for pain management. Patient expresses understanding. Some recent data might be hidden Activity: Reviewed with our expectations re activity postoperatively, to include use of good body mechanics, to relax when moving rather than tensing/guarding, and our expectations re progressive walking upon return home. Advised that he would not be able to drive while taking opioid pain medication. Home Support/Services Expected: Discussed home environment and support available following discharge. Patient has the support of his , Serena at discharge. It's anticipated that pt will go home. 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 Job demands: Heavy lifting twisting and turning. Expected first day of disability: day of surgery Length of time pt is expecting to be OOW: 8-12 weeks. Reviewed with pt where to send disability forms and expectations regarding completion. Postoperative PT Evaluation: Given provider preference, current physical capacity, and/or work demands, discussed value of and timing of a Spine Center PT evaluation in coordination with surgeon's hospital check. has opted to schedule PT; order placed. A copy of Spine Center Pre/Post-Operative Reference sheet provided to pt; reviewed the content. Encouraged to review these instructions prior to coming into the hospital and then again upon return home so that the instructions will be recalled easily. verbalized understanding of the information reviewed.. was given the contact information for the Spine Center Nursing staff; he was encouraged to call pre or postoperatively with any questions or concerns. documented in this encounter Plan of Treatment Not on file documented as of this encounter Visit Diagnoses Not on filedocumented in this encounter Care Teams Porcelain Turner Relationship Specialty Start Date End Date Adelita Charles MD [address] [place] [address] PCP - General 05/07/12 documented as of this encounter
--- OUTSIDE RECORDS SUMMARY | 2024-05-28 20:03 | XMS_ITS | Encounter Summary ---
Author Organization [facility] [place] [address] Care Team Providers Care Industrial Arts Public School Teacher Name Role Phone Adelita Charles MD Primary Care Provider [phone] Encounter Details Date Type Department Care Team (Late st Contact Info) Description 05/02/2022 Orders Only Orthopaedics at [facility] [address] [place] [id number] Bret Peterson MD [address] [place] [address] Status post total replacement of left hip (Primary Dx) Social History Tobacco Use Types Packs/Day Years [...] on file documented as of this encounter Results * (ABNORMAL) XR Pelvis & Lat Hip Left (Generic) (05/12/2022 2:36 PM EDT) Anatomical Region Laterality Modality Pelvis, Hip Left Digital Radiogra phy Impressions 05/12/2022 2:54 PM EDT Status post left total hip arthroplasty in anatomic alignment. Subtle oblique linear cortical lucency adjacent to the femoral stem, medially, seen on the lateral view, may represent postoperative change versus nondisplaced periprosthetic fracture. Attention on follow-up. Unexpected finding. Thank you for letting us participate in the care of this patient. ??If you are a health care provider and have any questions regarding this report, please contact the number below. ??For patients who have questions please contact the health skin care therapist that requested your imaging first. ? Electronically signed by: Nisah Colon MD, [facility] ([phone]), at 05/12/2022 2:54 PM Narrative 05/12/2022 2:54 PM EDT EXAMINATION: XR PELVIS AND LAT HIP LEFT (GENERIC) CLINICAL HISTORY: assess hip healing. s/p thr TECHNIQUE: Low AP pelvis radiograph, lateral radiograph the left hip (2 images) COMPARISON: Spot fluoroscopic images of the left hip/pelvis 04/13/2022 Radiographs of the pelvis and left hip 12/07/2021 from [facility] FINDINGS: Since 12/07/2021, status post noncemented left total hip arthroplasty, the femoral head centered over the acetabular cup, similar in position to the spot fluoroscopic images. No subsidence or periprosthetic radiolucency identified. On the lateral view, there is a faint linear oblique cortical radiolucency adjacent to the femoral stem medially, which is not clearly seen on the low AP pelvis radiograph. Stable right hip osteoarthropathy characterized by joint space narrowing, subchondral sclerosis, and a marginal osteophyte formation. No widening of the symphysis pubis or included sacroiliac joints. Surgical clips again seen overlying the scrotal region. Resulting Agency Comment Unexpected Finding Bret Peterson MD IMG DX ORDERABLES documented in this encounter Visit Diagnoses Diagnosis Status post total replacement of left hip- Primary Status post total replacement of left hip documented in this encounter Care Teams [employer] Teacher Relationship Specialty Start Date End Date Adelita Charles MD [address] [place] [address] PCP - General 05/07/12 documented as of this encounter
--- OUTSIDE RECORDS SUMMARY | 2024-05-28 20:03 | XMS_ITS | Encounter Summary ---
Author Organization [facility] Address [facility] [place] [address] Care Team Providers Care Poultry Farmer Meat Name Role Phone Adelita Charles MD Primary Care Provider [phone] Encounter Details Date Type Department Care Team (Latest Contact Info) Description 04/05/2020 2:20 PM EDT - 04/05/2020 11:59 PM EDT Hospital Encounter XRay at [address] [place] [address] Mychal Chapa MD [facility] [place] [address] Spinal stenosis of lumbar region, unspecified whether neurogenic claudication present Discharge Disposition: Home Social History Tobacco Use Types Packs/Day Years Used Date Smoking Tobacco: Former Cigarettes Smokeless Tobacco: Never Sex and Gender Information Value Date Recorded Sex Assigned at Not on file Gender Identity Not on file Sexual Orientation Not on file documented as of this encounter Medications at Time of Discharge Medication Sig Dispensed Refills Start Date End Date cyclobenzaprine (Flexeril) 10 mg Tablet Take 1 [...] systems (HORIZON NASAL CPAP SYSTEM MISC) by [facility].(Non-Drug; Combo Route) route nightly. 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 Thank you for letting us participate in the care of this patient. For questions regarding this report, please contact the number below. ? Narrative 04/05/2020 2:34 PM EDT EXAMINATION: XR LUMBAR SPINE 2 OR 3 VIEWS (GENERIC) CLINICAL HISTORY: Upright AP & Lateral flex/ext (3 views) for surgical chris, , entered by ordering service TECHNIQUE: 3 views lumbar spine, flexion and extension lateral views COMPARISON: Outside MRI of spine, January 2020. FINDINGS: Number of non-rib bearing lumbar-type vertebrae: 5 Vertebral bodies: Normal vertebral height. No vertebral fracture. Osteophytes arise from vertebral bodies and facet joints, most prominent in the facet joints. Disk spaces: Narrowed L3-4 and L5-S1 disc spaces. Alignment [flexion-extension]: No subluxation and unchanged alignment on flexion and extension. SI joints: Subchondral sclerosis and osteophyte formation. Procedure Note Stacia Byers MD - 04/05/2020 EXAMINATION: XR LUMBAR SPINE 2 OR 3 VIEWS (GENERIC) CLINICAL HISTORY: Upright AP & Lateral flex/ext (3 views) for surgicaleva, , entered by ordering service TECHNIQUE: 3 views lumbar spine, flexion and extension lateral views COMPARISON: Outside MRI of spine, January 2020. FINDINGS: Number of non-rib bearing lumbar-type vertebrae: 5 Vertebral bodies: Normal vertebral height. No vertebral fracture.Osteophytes arise from vertebral bodies and facet joints, most prominent in thefacet joints. Disk spaces: Narrowed L3-4 and L5-S1 disc spaces. Alignment [flexion-extension]: No subluxation and unchanged alignment on flexion and extension. SI joints: Subchondral sclerosis and osteophyte formation. 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 Thank you for letting us participate in the care of this patient. Forquestions regarding this report, please contact the number below. Mychal Chapa MD IMG DX ORDERABLES documented in this encounter Visit Diagnoses Diagnosis Spinal stenosis of lumbar region, unspecified whether neurogenic claudication present documented in this encounter Care Teams Poultry Farmer Meat Relationship Specialty Start Date End Date Adelita Charles MD [address] [place] [address] PCP - General 05/07/12 documented as of this encounter
--- OUTSIDE RECORDS SUMMARY | 2024-05-28 20:03 | XMS_ITS | Encounter Summary ---
Author Organization [facility] Address [facility] [place] [address] Care Team Providers Care Hand Touch Up Painter Name Role Phone Adelita Charles MD Primary Care Provider Reason for Referral * Consultation (Emergency) - Closed Specialty Diagnoses / Procedures Referred By Contrere t Referred To Contact Orthopaedics Diagnoses Low back pain, non-specific Juliet Westbrook MD [address] [place] [address] Bret Peterson MD [address] [facility] [address] [place] [address] Referral ID Status Reason Start Date Expiration Date V isits Requested Visits Authorized [id number] Closed Consult, Test & Treat 02/15/2022 02/15/2023 1 1 Encounter Details Date Type Department Care Team (Late st Contact Info) Description 02/15/2022 Transcribe Orders Orthopaedics at [facility] [address] [place] [address] Juliet Westbrook MD [address] [place], [place] [id number] Low back pain, non-specific Social History Tobacco Use Types Packs/Day Years [...] Scheduled Referrals Name Type Priority Associated Diagnoses Order Schedule Referral to Orthopaedics Outpatient Referral STAT Low back pain, non-specific Ordered: 02/15/2022 documented as of this encounter Visit Diagnoses Diagnosis Low back pain, non-specific documented in this encounter Care Teams Hand Touch Up Painter Relationship Specialty Start Date End Date Adelita Charles MD [address] [place] [address] PCP - General 05/07/12 documented as of this encounter
--- OUTSIDE RECORDS SUMMARY | 2024-05-28 20:03 | XMS_ITS | Encounter Summary ---
Author Organization [place] [address] Care Team Providers Care Home Designer Name Role Phone Adelita Charles MD Primary Care Provider [phone] Encounter Details Date Type Department Care Team (Late st Contact Info) Description 03/21/2022 Orders Only Orthopaedics at [facility] [address] [facility] [place] [id number] Bret Peterson MD [address] [place] [address] Encounter for screening laboratory testing for COVID-19 virus in asymptomatic patient Social History Tobacco Use Types Packs/Day Years [...] as of this encounter Visit Diagnoses Diagnosis Encounter for screening laboratory testing for COVID-19 virus in asymptomatic patient documented in this encounter Care Teams Home Designer Relationship Specialty Start Date End Date Adelita Charles MD [address] [place] [address] PCP - General 05/07/12 documented as of this encounter
--- OUTSIDE RECORDS SUMMARY | 2024-05-28 20:03 | XMS_ITS | Encounter Summary ---
Author Organization [facility] [place] [address] Care Team Providers Care Coil Cutter Name Role Phone Adelita Charles MD Primary Care Provider Encounter Details Date Type Department Care Team (Late st Contact Info) Description 04/18/2023 3:00 PM EDT Office Visit Orthopaedics at [facility] [address] [place] [id number] Jeannette Echols PA [facility] [place] [address] Status post total replacement of left hip [...] Progress Notes * Jeannette Echols PA - 04/18/2023 3:00 PM EDT Date of Surgery: 04/13/2022 Procedure: Left total hip arthroplasty via direct anterior approach Kaushik Cleomns is a 63 y.o. male presents today for a postoperative visit after undergoing a total hip arthroplasty with Dr. Peterson. He tells me that he is doing well. He is not having pain in the hip buthas been having low back pain. He had a previous L3/[address] Chapa. 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 Reports the pain as radiating into his buttocks bilaterally. He denies any groin pain. He was able to ski this winter, continues to dance weekly. Leg Length Discrepancy: denies Review of Systems: Constitutional: Denies fever, chills, fatigue Cardiovascular: Denies chest pain Respiratory: Denies shortness of breath Gastrointestinal: Denies nausea, vomiting, diarrhea, constipation or abdominal pain Neurovascular: Denies numbness or tingling Musculoskeletal: Admits no pain in th hip Psychiatric: Mood and affect appropriate PHYSICAL EXAM: [...] 5/5 hip flexion, 5/5 abduction, 5/5 adduction TTP over midline lumbar spine SIJ are nontender bilaterally Calves are soft and nontender. Negative Davie's. X-RAYS: AP pelvis and frog leg lateral views were obtained and demonstrate a stable, well seated total hip arthroplasty in good position with no evidence of loosening, subsidence or periprosthetic fracture. Lucency at the medial femoral cortex at the distal femoral stem only visible on the lateral projection remains unchanged, no surrounding callus formation- likely a vascular channel ASSESSMENT: One year s/p Left total hip arthroplasty via direct anterior approach with Dr. Peterson. PLAN: Kaushik Clemons is a 63 y.o. male who I am seeing today for a 1 year follow-up after undergoing a left total hip arthroplasty. He tells me that his left hip is doing well, he has been having some low backpain. He had a previous L3-[address] Chapa. We reviewed x-rays of his left hip, implants are stable in appearance. He has painless hip range of motion on examination today. He does have tenderness over his midline lumbar spine. I do not think that any of his symptoms are stemming from his hip, I do think that this is coming from his back, could be arthritic in nature. I recommend that he either talk to his primary care physician or go back to see Dr. Chapa for further recommendations regarding his lumbar spine. In general the use of Tylenol and anti- inflammatories can be helpful. As far as his hip is concerned, we will plan to see him back about every 5 years with repeat x-rays of the hip. He knows that he can call at any time should he have any questions or concerns and we would be happy to see him sooner. In regards to dental work, the current recommendations are to avoid any elective dental work within6 months after a joint replacement. Patients should take antibiotics by mouth 30 minutes before anydental procedure that is done within 6 months of a joint replacement. You may contact the office and we will send in a prescription for these antibiotics. For dental procedures done more than 6 months after hip or knee replacement, the recommendations are as follows: In patients with a normal immune system, no antibiotic pretreatment is required ahead of dental cleanings and restorations (fillings). In case of more extensive dental work such as an extraction (tooth pulled), root canal, periodontal (gum) work or dental implants, then please contact us and we will send an antibiotic prescription which is to be taken 30 to 60 minutes before the procedure. documented in this encounter Plan of Treatment Not on file documented as of this encounter Visit Diagnoses Diagnosis Status post total replacement of left hip documented in this encounter Care Teams Coil Cutter Relationship Specialty Start Date End Date Adelita Charles MD [address] [address] PCP - General 05/07/12 documented as of this encounter
--- OUTSIDE RECORDS SUMMARY | 2024-05-28 20:03 | XMS_ITS | Encounter Summary ---
Author Organization [facility] [place] [address] Care Team Providers Care Hand Frame Surgical Elastic Knitter Name Role Phone Adelita Charles MD Primary Care Provider [phone] Encounter Details Date Type Department Care Team (Late st Contact Info) Description 04/10/2022 Orders Only Orthopaedics at [facility] [address] [place] [phone] Bret Peterson MD [address] [facility] [place] [address] Primary osteoarthritis of left hip (Primary Dx) Social History [...] as of this encounter Visit Diagnoses Diagnosis Primary osteoarthritis of left hip- Primary Primary localized osteoarthrosis, pelvic region and thigh documented in this encounter Care Teams Hand Frame Surgical Elastic Knitter Relationship Specialty Start Date End Date Adelita Charles MD [address] [place] [address] PCP - General 05/07/12 documented as of this encounter
--- OUTSIDE RECORDS SUMMARY | 2024-05-28 20:03 | XMS_ITS | Encounter Summary ---
Author Organization [facility] [place] [address] Care Team Providers Care Engagement Director Name Role Phone Adelita Charles MD Primary Care Provider [phone] Encounter Details Date Type Department Care Team (Late st Contact Info) Description 11/04/2021 Telephone [facility] at [facility] [place] [address] Marcelle Mir RN Social History Tobacco Use Types Packs/Day Years [...] encounter Miscellaneous Notes * Telephone Encounter - Marcelle Mir, RN - 11/04/2021 5:16 PM EST Outgoing call to patient as he had called an left a M on the nurse triage line asking for a call back. Per my conversation with patient, he had spoken to someone named Kelly yesterday that tried to call him back today. I reviewed patient chart and noted that Montserrat, one of the spine nurses had spoken to patient yesterday and attempted to call him today. Per her notes, it appears patient had called office with increased low back pain post back surgery in 2019. Dr Chapa's recommendation was a referral to the pain clinic. I let Kaushik know and explained the referral process to him. Once the order has been signed by Dr. Chapa, the referral will be evaluated and assigned to the best provider. The schedulers will then call him to schedule the appointment. Patient verbalized understanding. LINUS Galvan documented in this encounter Plan of Treatment Not on file documented as of this encounter Visit Diagnoses Not on filedocumented in this encounter Care Teams Engagement Director Relationship Specialty Start Date End Date Adelita Charles MD [address] [place] [address] PCP - General 05/07/12 documented as of this encounter
--- OUTSIDE RECORDS SUMMARY | 2024-05-28 20:03 | XMS_ITS | Encounter Summary ---
Author Organization [facility] [place] [address] Care Team Providers Care Shell Trim Tool Setter Name Role Phone Adelita Charles MD Primary Care Provider [phone] Encounter Details Date Type Department Care Team (Late st Contact Info) Description 04/09/2023 Orders Only Orthopaedics at [facility] [address] [place] [phone] Bret Peterson MD [address] [facility] [place] [address] Status post total replacement of left hip [...] documented as of this encounter Results * XR Pelvis & [...] who have questions please contact the health client care consultant that requested your imaging first. ? Narrative 04/18/2023 3:50 PM EDT EXAMINATION: XR [...] patients who have questions please contactthe health client care consultant that requested your imaging first. 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
--- OUTSIDE RECORDS SUMMARY | 2024-05-28 20:03 | XMS_ITS | Encounter Summary ---
Author Organization [facility] [place] [address] Care Team Providers Care Compressor Assembler Name Role Phone Adelita Charles MD Primary Care Provider [phone] Reason for Referral * Home Health Care (Routine) - Closed Specialty Diagnoses / Procedures Referred By Pilar ho Referred To Contact Diagnoses Status post total replacement of left hip Bret Peterson MD [address] [place] [address] Adelita Charles MD [address] [address] Referral ID Status Reason Start Date Expiration Date V isits Requested Visits Authorized [id number] Closed Consult, Test & Treat 04/13/2022 10/10/2022 999 999 Reason for Visit * Auth/Cert Specialty Diagnoses / Procedures Referred By Pilar ho Referred To Contact Diagnoses OA Procedures PRO TOTAL HIP ARTHROPLASTY TOTAL HIP ARTHROPLASTY, ANTERIOR APPROACH (WRVU 20.72) MODIFIER PEREA & NEPHEW - POLAR STEM CEMENTLESS MODIFIER PEREA & NEPHEW - R3 ACETABULAR CUP Bret Peterson MD [address] [place] [address] [facility] Referral ID Status Reason Start Date Expiration Date Visits Re quested Visits Authorized [id number] 1 1 Encounter Details Date Type Department Care Team (Latest Contact Info) Description 04/13/2022 7:32 AM EDT - 04/13/2022 5:04 PM EDT Hospital Encounter Med Surg Unit at [facility] [address] [place] [id number] Bret Peterson MD [address] [address] Status post total replacement of left hip Discharge Disposition: Home Social History Tobacco Use [...] Mass Index 33 04/13/2022 8:18 AM EDT documented in this encounter Discharge Summaries * Jeannette Echols PA - 04/13/2022 12:06 PM EDT [facility] Discharge Summary Admit date: 04/13/2022 Expected D/C date: 04/13/2022 Attending Physician: Bret Peterson MD Discharge Physician: MERON Ordoñez Discharge disposition: Home with services Discharge Diagnoses (Hospital Problems) Active Hospital Problems S/P left total hip arthroplasty; Dr. Peterson 04/13/2022 Resolved Hospital Problems No resolved problems to display. Active Non-Hospital Problems Diagnosis ??? Pain in left hip ??? Diabetes mellitus ??? Hypertension ??? s/p L3-4 laminectomy 05/05/[address] Chapa ??? Spinal stenosis of lumbar region Follow-up Recommendations for Providers: Follow-up with PCP as Scheduled Follow-up with Ortho at 4 weeks post-op Pending Studies and Lab Data: None Hospital course: The patient was admitted electively from the same day surgery area, and underwent total replacementof the left Hip using a spinal and sedation anesthetic. The postoperative course followed the postoperative pathway for lower extremity total joint replacement. A multimodal analgesia protocol was use d, with intraoperative injection of bupivacaine and additives into the tissues surrounding the operated joint. The patient received pre operative intravenous antibiotics. A referral to physical therapy was ordered, and the goals for safe discharge were reinforced including safe ambulation with an assistive device, stair climbing, and exercises specific to the muscle groups around the replaced joint. An occupational therapy referral was also entered, and goals for safe discharge included functional mobility and training in activities of daily living including toileting, dressing, and self-care.. Notable medical or safety events related to the hospitalization include the following:None. Significant Procedures, Labs and Imaging Tests: Operations: Procedure(s): TOTAL HIP ARTHROPLASTY, ANTERIOR APPROACH (WRVU 20.72) MODIFIER PEREA & NEPHEW - POLAR STEM CEMENTLESS MODIFIER PEREA & NEPHEW - R3 ACETABULAR CUP 04/13/2022 Other Major Procedures: None Labs: Last wbc, hgb, hct plt No results for input(s): WBC, HGB, HCT in the last 72 hours. Invalid input(s): PLT Last 3 Lytes No results for input(s): NA, K, CL, CO2, BUN, CREATININE in the last 7068 hours. Studies: NA Discharge Medications/Significant Medication Changes: Your Medications New Medications Dose Details aspirin EC 81 mg Tbec Take 1 tablet by mouth 2 times daily for 30 days. Replaces: aspirin 81 mg Chew 81 mg Quantity: 60 tablet Refills: 0 HYDROmorphone 2 mg Tab Commonly known as: Dilaudid Take 1 tablet by mouth every 4 hours as needed for Pain (Post Operative). 2 mg Quantity: 20 tablet Refills: 0 Continued medications with new dosing Dose Details acetaminophen 500 mg Tab Commonly known as: Tylenol Take 2 tablets by mouth every 8 hours as needed for Pain. What changed: ?? when to take this ?? reasons to take this ?? additional instructions 1,000 mg Quantity: 30 tablet Refills: 1 polyethylene glycoL 17 gram Pwpk Commonly known as: Miralax Take 17 g by mouth daily as needed (constipation). What changed: ?? when to take this ?? reasons to take this ?? additional instructions 17 g Quantity: 14 each Refills: 0 senna-docusate 8.6-50 mg Tab Commonly known as: Pericolace Take 2 tablets by mouth 2 times daily as needed for Constipation. What changed: ?? when to take this ?? reasons to take this ?? additional instructions 2 tablet Quantity: 60 tablet Refills: 0 Continued medications, unchanged Dose Details allopurinoL 300 mg Tab Commonly known as: Zyloprim Take 300 mg by mouth daily. 300 mg Refills: 0 amLODIPine-benazepriL 10-20 mg Cap Commonly known as: LOTREL Take 1 capsule by mouth nightly. 1 capsule Refills: 0 atenoloL-chlorthalidone 50-25 mg Tab Commonly known as: TENORETIC Take 1 tablet by mouth nightly. 1 tablet Refills: 0 cyclobenzaprine 10 mg Tab Commonly known as: Flexeril Take 1 tablet by mouth 3 times daily as needed for Muscle spasms. 10 mg Quantity: 25 tablet Refills: 0 gabapentin 300 mg Cap Commonly known as: Neurontin Take 1 capsule by mouth at bedtime for 3 weeks, starting the night before surgery. Quantity: 21 capsule Refills: 0 HORIZON NASAL CPAP SYSTEM MISC by Misc.(Non-Drug; Combo Route) route nightly. Refills: 0 hydrOXYzine 25 mg Tab Commonly known as: Atarax Take 25 mg by mouth Every 8 hours as needed. 25 mg Refills: 0 levothyroxine 75 mcg Tab Commonly known as: Synthroid Take 75 mcg by mouth daily. 75 mcg Refills: 0 meloxicam 15 mg Tab Commonly known as: MOBIC Please take 1 tablet, PO, Qday for 30 days post op Quantity: 30 tablet Refills: 0 metFORMIN 1,000 mg Tab Commonly known as: Glucophage Take 1,000 mg by mouth 2 times daily (with meals). 1,000 mg Refills: 0 multivitamin Cap Take 1 capsule by mouth daily. 1 capsule Refills: 0 omeprazole 20 mg Cpdr Commonly known as: PriLOSEC Take 20 mg by mouth Twice daily. 20 mg Refills: 0 OneTouch Delica Plus Lancet 33 gauge Misc Generic drug: lancets Refills: 0 potassium chloride 10 mEq Cpsr Commonly known as: MICRO-K Take 10 mEq by mouth daily. 10 mEq Refills: 0 STOPPED Medications aspirin 81 mg Chew Replaced by: aspirin EC 81 mg Tbec fish oil-omega-3 fatty acids 500 mg Cap mupirocin 2 % Oint Commonly known as: Bactroban UNABLE TO FIND The patient???s preoperative medications were resumed after surgery, see above. Aspirin 81 mg twicedaily was ordered as chemical thromboprophylaxis to prevent deep venous thrombosis. The patient wasinstructed to continue on this regimen for a total of 4 weeks and to avoid for 4 weeks any vitamins(E and K), herbal or dietary supplements that may affect blood clotting. The patient was specifically told to contact the clinic in cases of visible bleeding, swelling that was painful to manual compression, or extreme cases of swelling. In addition, the following medications were prescribed by the orthopaedic team and prescriptions (when necessary) were provided: - Dilaudid (hydromorphone) 2 mg 1 tablet every 4 hours as needed for pain, Meloxicam 15 mg once daily, Tylenol 1000 mg every 8 hours and Gabapentin (Neurontin) 600 mg nightly for 2 weeks, then taper down to 300 mg nightly for one week, then off. - Aspirin 81 mg twice daily twice daily A full summary of discharge medications was completed by the discharging provider, and reviewed by the nursing staff with the patient before leaving the hospital. Allergies: Allergies Allergen Reactions ??? Norvasc [Amlodipine] itchy ASSESSMENT AND PLAN: At the time of discharge, the patient was medically stable, meeting PT and OT goals, had good pain control, no active nausea, and satisfactory bladder and bowel function. They were discharged with visiting nursing referral, at their request. The following unique medical or postsurgical issues were identified at the time of discharge, and the following plans of care were reviewed: None. Discharge Condition: At the time of discharge patient's vitals were as noted below. Patient Vitals for the past 8 hrs: BP Temp Temp src Pulse Resp SpO2 04/13/22 1249 142/68 36.5 ??C (97.7 ??F) Oral (!) 49 20 98 % 04/13/22 1230 152/79 -- -- (!) 44 19 99 % 04/13/22 1216 154/84 -- -- 51 18 92 % 04/13/22 1200 142/69 -- -- 58 18 96 % 04/13/22 1159 -- -- -- -- -- 97 % 04/13/22 1153 -- -- -- -- -- 97 % 04/13/22 1146 157/74 -- -- 54 18 96 % 04/13/22 1143 150/77 -- -- 55 16 97 % 04/13/22 1135 126/69 36.1 ??C (97 ??F) Temporal 56 20 94 % Patient Instructions: ACTIVITY: The patient was counseled about gradually resuming activity after joint replacement. Specific limitations were discussed regarding physical activity (no strenuous activity until 3 months after surgery), lifting (no more than 10 lbs for first month, 20 lbs maximum for months 2 and 3, then no formal limit), and the use of assistive devices. The importance of muscle strengthening around the joint was emphasized. Range of motion exercises were taught to the patient and reviewed before discharge, with instructions to continue doing those exercises at home. The patient was told to contactorthopedic clinic at any time with questions, and was specifically counseled on signs and symptoms of infection, blood clot, or the types of cardiopulmonary symptoms that should prompt immediate or urgent attention. In addition, the patient was asked to not submerge their incision in water for the first 4 weeks after the operation, even though contact with water such as in a shower is normal and permissible. First follow-up clinic visit will take place 4 weeks after the date of surgery approximately. New radiographs will be obtained of the operated joint during the course of his post-operative follow-up.Patient was counseled specifically about opioid narcotics, the fact that they should be used in conjunction with nonnarcotic pain medication, the fact that their dosage and frequency should be tapered gradually as symptoms allow. Patient Instructions ACTIVITY: You are allowed full weightbearing on the operative leg. If you have had a knee replacement, please do not bend your knee beyond 90 degrees for the first 4 weeks after surgery. Specific limitations regarding physical activity include no strenuous activity until 3 months after surgery, andlimited lifting (no more than 10 lbs for first month, 20 lbs for months 2 and 3, then no formal limit). Assistive devices are strongly suggested for safety: typically a walker for 1-2 weeks and then a cane for 2-3 weeks. The importance of muscle strengthening around the joint was emphasized, and you should continue doing the exercises you were taught while at [facility] by the PT and OT staff, includingrange of motion and strengthening exercises. We do not suggest any outpatient physical therapy appointments during the first 2 weeks after surgery. Rather, you should do exercises at home (with or without a visiting PT), and start outpatient PT on the third week after surgery. You should apply the ice packs to the operative site every day for the first month after surgery (30 minutes on, 30 minutes off). You may ice at night as well, but this is optional. Please contact orthopedic clinic at anytime with questions, and be sure you can recognize signs and symptoms of infection (fevers, redness, drainage, increased pain), blood clot (tense or firm calf that hurts to squeeze), or the types of cardiopulmonary symptoms that should prompt immediate or urgent attention (chest pain or pressure, or shortness of breath). Standing and walking is allowable for up to 20 minutes every hour, but not more. Doing too much walking or standing in the first months can lead to swelling and this could slowdown your recovery. INCISION: You should not submerge your incision underwater for the first 4 weeks after the operation (no tubs or swimming), but contact with water such as in a shower is allowed. The bandage (dressing) over your operated joint should be removed and a new bandage applied 4-5 days after surgery. The second bandage may be removed after 4-5 days and the incision left open to air.. There may be a clear mesh strip over your incision. Please leave this in place for 4 weeks after surgery. After the final bandage is removed, the incision may be left open to the air uncovered. Do not be surprised if you get bruising in the leg that you had surgery on, sometimes it can be quite extensive and other times quite minimal. It will go away after about one month. If you have ofelia, these will need to be removed 10-14 days after surgery. PAIN & PAIN MEDICATION: The numbing medicine that was injected around your operated joint will wear off 48-72 hours after surgery, and you may notice an increase in pain and aching at that time. To minimize an unpleasantly dramatic increase in pain, we ask that you continue the same schedule ofpain medication that you were doing while at [facility]. Be sure to understand your pain medication plan before you leave the hospital and remember to miner pick all prescriptions at the pharmacy. DVT PROPHYLAXIS: Aspirin 81mg by mouth twice daily for 4 weeks FOLLOW-UP: Your first follow-up clinic visit will take place approximately 4 weeks after the date of surgery. The time and date of your appointment should be in your pre-operative paperwork, but if you cannot find them then please contact the clinic at . Future Appointments Date Time Provider Department Center 05/12/2022 3:30 PM Jeannette Echols PA [facility] 07/07/2022 2:30 PM Jeannette Echols PA [facility] General Instructions None Future Appointments and Orders Future Appointments and Orders Future Appointments Provider Department Dept Phone 05/12/2022 3:30 PM Jeannette Echols PA Orthopaedics at Arrive at: [facility] Multi-Specialty Clinic Level 07/07/2022 2:30 PM Jeannette Echols PA Orthopaedics at Arrive at: [facility] Multi-Specialty Clinic Level Future Orders Complete By Expires Referral to Home Health [REF34 Custom] As directed Process Instructions: If no progress note charted, please enter Clinical details in comments. Scheduling Instructions: Comments: Please evaluate Kaushik Clemons for admission to Home Health. [address] [place] [phone] (home) [phone] (mobile) Date of : 1960 Outpatient Person to contact: Patient Patient is aware of referral: yes Referring Provider Call-back Physician to follow (the person listed here will be responsible for signing ongoing orders): PCP Shantal Charles Requested Start of Care Date: 24-48 hours post-hospital discharge (s/p Left TIFFANIE 04/13/2022) [facility] INSTRUCTIONS: Home safety evaluation PHYSICAL THERAPY, twice weekly and/or as evaluated:??Range of motion, quad active strengthening, gluteal strengthening, edema reduction and management, scar tissue prevention, surgical incision management and massage once healed, patellar mobilization, gait/stair training, transfers, safety with ambulation and use of assistive devices, ??Proprioception, family/caregiver training, return to safe independence at home prior to discharge OCCUPATIONAL THERAPY, twice weekly and/or as evaluated: Assistance with DME, ADLs and IADLs, transfers, upper extremity exercises to tolerance, family/caregiver training INCISION INSTRUCTIONS: Dressing change 5 days from application of Mepilex dressing post-op and apply a new Mepilex dressing for an additional 5 days, then cover only if needed; Leave prineo mesh in place for 4 week, may trim edges if peeling. Remove after 4 weeks.?? HOME HEALTH CARE AGENCY: [facility] In discussion with the attending physician, it is certified that the clinical findings support thatthis patient is temporarily homebound because absences from home require considerable and taxing effort due to: Patient is unable to leave home without assistance and ambulation is severely limited by pain, decreased strength and/or endurance., Patient needs assistance to ambulate and is minimally weight bearing and walking is restricted due to recent surgery, and Unsteady Gait, poor balance, requiring assistive devices and/or assistance of another Please note that any additional orders needs or changes will need to be obtained from this patient's PCP: Adelita Charles MD [address] / [place] [address] All [facility]NA agencies which cover the area of patient's residence have been reviewed, either verbally alexis writing, and patient/family have chosen the home health care agency noted I attest that I or another qualified licensed provider saw Kaushik Clemons 90 days prior to or 30 days post admission and this face to face encounter meets the necessary Home Health requirements. The faceto face encounter occurred on 04/13/2022. Questions: Disciplines Requested: Physical Therapy Occupational Therapy Inpatient Provider Contact Information: For questions regarding this summary or this inpatient hospitalization, please call the [facility] at [phone]. MERON Ordoñez 04/13/2022 documented in this encounter Discharge Instructions * Patient Instructions* Jeannette Echols PA - 04/13/2022 12:08 PM EDT ACTIVITY: You are allowed full weightbearing on the operative leg. If you have had a knee replacement, please do not bend your knee beyond 90 degrees for the first 4 weeks after surgery. Specific limitations regarding physical activity include no strenuous activity until 3 months after surgery, andlimited lifting (no more than 10 lbs for first month, 20 lbs for months 2 and 3, then no formal limit). Assistive devices are strongly suggested for safety: typically a walker for 1-2 weeks and then a cane for 2-3 weeks. The importance of muscle strengthening around the joint was emphasized, and you should continue doing the exercises you were taught while at [facility] by the PT and OT staff, includingrange of motion and strengthening exercises. We do not suggest any outpatient physical therapy appointments during the first 2 weeks after surgery. Rather, you should do exercises at home (with or without a visiting PT), and start outpatient PT on the third week after surgery. You should apply the ice packs to the operative site every day for the first month after surgery (30 minutes on, 30 minutes off). You may ice at night as well, but this is optional. Please contact orthopedic clinic at anytime with questions, and be sure you can recognize signs and symptoms of infection (fevers, redness, drainage, increased pain), blood clot (tense or firm calf that hurts to squeeze), or the types of cardiopulmonary symptoms that should prompt immediate or urgent attention (chest pain or pressure, or shortness of breath). Standing and walking is allowable for up to 20 minutes every hour, but not more. Doing too much walking or standing in the first months can lead to swelling and this could slowdown your recovery. INCISION: You should not submerge your incision underwater for the first 4 weeks after the operation (no tubs or swimming), but contact with water such as in a shower is allowed. The bandage (dressing) over your operated joint should be removed and a new bandage applied 4-5 days after surgery. The second bandage may be removed after 4-5 days and the incision left open to air.. There may be a clear mesh strip over your incision. Please leave this in place for 4 weeks after surgery. After the final bandage is removed, the incision may be left open to the air uncovered. Do not be surprised if you get bruising in the leg that you had surgery on, sometimes it can be quite extensive and other times quite minimal. It will go away after about one month. If you have ofelia, these will need to be removed 10-14 days after surgery. PAIN & PAIN MEDICATION: The numbing medicine that was injected around your operated joint will wear off 48-72 hours after surgery, and you may notice an increase in pain and aching at that time. To minimize an unpleasantly dramatic increase in pain, we ask that you continue the same schedule ofpain medication that you were doing while at [facility]. Be sure to understand your pain medication plan before you leave the hospital and remember to miner pick all prescriptions at the pharmacy. DVT PROPHYLAXIS: Aspirin 81mg by mouth twice daily for 4 weeks FOLLOW-UP: Your first follow-up clinic visit will take place approximately 4 weeks after the date of surgery. The time and date of your appointment should be in your pre-operative paperwork, but if you cannot find them then please contact the clinic at . Future Appointments Date Time Provider Department Center 05/12/2022 3:30 PM Jeannette Echols PA [facility] 07/07/2022 2:30 PM Jeannette Echols PA [facility] documented in this encounter Medications at Time of Discharge Medication Sig Dispensed Refills Start Date End Date acetaminophen (Tylenol) 500 mg Tablet Take 2 tablets by mouth every 8 hours as needed for Pain. 30 tablet 1 04/13/2022 allopurinoL (Zyloprim) 300 mg Tablet Take 300 mg by mouth daily. 09/21/2021 metFORMIN (GLUCOPHAGE) 1,000 mg Tablet Take 1,000 mg by mouth 2 times daily (with meals). 11/04/2021 potassium chloride (MICRO-K) 10 mEq Capsule, Sustained Release Take 10 mEq by mouth daily. 09/19/2021 [facility] 09/19/2021 amLODIPine-benazepriL (LOTREL) 10-20 mg Capsule Take 1 capsule by mouth nightly. 04/19/2020 cyclobenzaprine (Flexeril) 10 mg Tablet Take 1 tablet by mouth 3 times daily as needed for Muscle spasms. 25 tablet 05/05/2020 multivitamin Capsule Take 1 capsule by mouth daily. atenoloL-chlorthalidone (TENORETIC) 50-25 mg Tablet Take 1 tablet by mouth nightly. levothyroxine (Synthroid) 75 mcg Tablet Take 75 mcg by mouth daily. hydrOXYzine (Atarax) 25 mg Tablet Take 25 mg by mouth Every 8 hours as needed. omeprazole (PriLOSEC) 20 mg Capsule, Delayed Release(E.C.) Take 20 mg by mouth Twice daily. oxygen-air delivery systems (HORIZON NASAL CPAP SYSTEM [facility] by [facility].(Non-Drug; Combo Route) route nightly. aspirin EC 81 mg Tablet, Delayed Release (E.C.) Take 1 tablet by mouth 2 times daily for 30 days. 60 tablet 04/13/2022 05/13/2022 senna-docusate (Pericolace) 8.6-50 mg Tablet Take 2 tablets by mouth 2 times daily as needed for Constipation. 60 tablet 04/13/2022 05/12/2022 polyethylene glycoL (Miralax) 17 gram Powder in Packet Take 17 g by mouth daily as needed (constipation). 14 each 04/13/2022 05/12/2022 HYDROmorphone (Dilaudid) 2 mg Tablet Take 1 tablet by mouth every 4 hours as needed for Pain (Post Operative). 20 tablet 04/13/2022 05/12/2022 meloxicam (MOBIC) 15 mg TabletIndications:Primar y osteoarthritis of left hip Please take 1 tablet, PO, Qday for 30 days post op 30 tablet 04/10/2022 07/07/2022 gabapentin (Neurontin) 300 mg CapsuleIndications:Prima ry osteoarthritis of left hip Take 1 capsule by mouth at bedtime for 3 weeks, starting the night before surgery. 21 capsule 04/10/2022 07/07/2022 documented as of this encounter Progress Notes * Jennifer Richardson RN - 04/13/2022 5:01 PM EDT Kaushik Clemons discharged per provider order to home via 's vehicle. All IV???s removed. Discharge instructions reviewed with patient and . All questions or concerns answered at this time. Patient encouraged to call with any further questions or concerns. Copy of After Visit Summary given to patient at time of discharge. All personal belongings returned to patient, including prescription medications. Patient assisted to personal vehicle via staff member and wheelchair. Jennifer Richardson RN, 04/13/2022 * Jennifer Richardson RN - 04/13/2022 5:00 PM EDT Patient has met all goals and is ready for D/C. IV removed. AVS was reviewed with patient and .Patient denied any questions. Patient was escorted to vehicle via wheelchair with all of his belongings, ice and new mepilex. * Kenny Kumar RCP - 04/13/2022 3:05 PM EDTSummary: CPAP use 1505: Spoke w/ pt. About his night-time CPAP use at home. He states he has one, but hasn't used it on a long while. States he has a bed at home now that the head of the bed raises and it has helped him sleep much better now and doesn't need the CPAP anymore. Refused use of our CPAP, is open to using a little supplimental O2 if needed though. * Jennifer Richardson RN - 04/13/2022 2:52 PM EDT Patient Name: Kaushik Clemons Patient Age: 62 y.o. Birthdate: 1960 Admit date: 04/13/2022 Attending Physician: Bret Peterson MD * Jennifer Richardson RN - 04/13/2022 12:40 PM EDT Kaushik Clemons arrived to Medical Surgical Unit from the PACU s/p S/P total hip arthroplasty [Z96.649].Patient is alert and oriented x4. See Adult Patient Care Summary for focused assessment upon admission. Dressing is clean, dry and intact. Patient rates their pain as 0/10 at this time. Patient oriented to room and the units practice of purposeful rounding. Call espinal within reach and all questions/concerns answered at this time. Will continue to monitor patient as necessary. Jennifer Richardson RN, 04/13/2022 * Cheryl Chand RN - 04/13/2022 12:39 PM EDT Patient met PACU discharge criteria. Report given to LINUS Rodriguez. Patient belongings went to floor. documented in this encounter H&P Notes * Jeannette Echols PA - 04/13/2022 9:35 AM EDT Patient Name: Kaushik Clemons Patient Age: 62 y.o. Birthdate: 1960 Admit date: 04/13/2022 Attending Physician: Bret Peterson MD The patient's history and physical exam have been reviewed and completed. There has been no interval change from that of the pre-operative history and physical exam done within the last 30 days. documented in this encounter Miscellaneous Notes * Care Management - Kimo Nisha Lisa - 04/13/2022 5:04 PM EDT The [facility] referral was faxed to the patient's preferred agency, [facility] ([phone]). * Initial Assessments - Marcelle Enamorado PT - 04/13/2022 4:22 PM EDT Physical Therapy Orthopaedic Initial Evaluation Note Diagnosis: S/P L ANT TIFFANIE Rehab Potential: Good; pt cleared to ME home once medically stable Orders through: 04/13/22 Referring Provider: Bret Peterson MD Anticipated DME: None Anticipated Discharge Needs: home with home health Precautions: Anticoagulation, Fall Risk Anticoagulation Precautions: Aspirin Weight-Bearing Status: Left Lower Extremity (Weight-bearing Status): weight-bearing as tolerated (WBAT) Cognition: Alert; O x 4 Past Medical History: Diagnosis Date ??? CPAP (continuous positive airway pressure) dependence ??? Diabetes ??? Gastroesophageal reflux ??? High blood pressure ??? Hypothyroid ??? Obstructive sleep apnea Past Surgical History: Procedure Laterality Date ??? BACK SURGERY 02/2020 ? ? PRO CORTEZ FACETECTOMY&FORAMOT 1 VRT SGM EA ADDL SGM Bilateral 05/05/2020 ADD'L INTERSPACES CX., THORACIC, LUMBAR (WRVU 3.47) performed by Mychal Chapa MD at [facility] MAIN OR ??? PRO LAMINEC/FACETECT/FORAMIN, LUMBAR 1 SEG Bilateral 05/05/2020 LAMINECTOMY, FACETECTOMY & FORAMINOTOMY,LUMBAR, ONE LEVEL (WRVU 15.37) performed by Mychal Chapa MD at [facility] MAIN OR ??? SHOULDER ARTHROSCOPY 11/2019 Subjective Patient Living Environment: Home Setup Patient Lives: spouse / significant other What type of home is it?: single level, house/condo/apartment Are there stairs to enter your home?: Stairs to enter How many stairs?: 5 Do the stairs have railings?: left handrail Are there stairs inside your home?: No Bathroom Location: bathroom on main floor Main Floor Bathroom Setup: walk in shower, shower chair, standard toilet Equipment patient has at home: AE hip kit, FWW, shower chiar Are there children in the home?: NA Are there pets in the home?: NA Patient Prior Level of Functioning: PLOF ADLs ADLs: Independent with all ADL's PLOF IADLs IADLs: Independent with all IADL's Prior Level of Mobility Mobility: Independent with all mobility Occupational History / Life Expereinces 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 History of Falls Do you have a history of falls?: No Objective Patient position at start of session: in bedside recliner chair, with all needs met and with call espinal in reach Patient position and personal items at end of session: in bedside recliner chair, with all needs met, with call espinal in reach and with family at the bedside Range of Motion: Left Hip Consistent with recent surgical history Strength: Left Hip Consistent with recent surgical history Mobility: Ambulation: Modified Independent with (see comment) Assistive Equipment: FWW Ambulation Distance (feet): Pt amb 2 x 210 ft with rolling walker with supervision and min cues to work on advancing L LE with improved hip flexion Sit / Stand: Modified Independent Assistive Equipment: FWW Surfaces Used: room recliner, clinic chair Stairs: Modified Independent Assistive Equipment: Cane, single point Number of Stairs: Pt negotiated 4 steps with l handrail x 2 with supervision and cues for sequencing Today's Treatment: ?? PT Evaluation ?? Self Care/Training: ?? Patient education: pacing, safety, precautions, AD use, self-monitoring for DVT & infection ?? Patient instructed in initial exercise program, HEP provided Ortho Exercises Row Name 04/13/22 1620 Supine Heel Slide -- Gluteal Set x5 Quad Set x5 Hip Abduction / Adduction -- Ankle [place] x5 Seated Hip Flexion -- Knee Flexion Stretch -- Long Arc Quad x5 Standing Hip Flexion -- Hamstring Curl -- Heel Raise x5 Terminal Knee Extension -- Hip Extension x5 Hip Abduction x5 Mini Squat -- Stair Knee Flexion Stretch -- Assessment Patient is a pleasant 62 y.o. male who presents to acute PT following a L ant TIFFANIE performed by Dr Peterson on 04/13/2022. Patient presented with L groin pain, decreased strength, ROM, balance, functionalmobility, and tolerance to functional activity consistent with recent surgical history. Patient demo nstrated good overall mobility and is safe to discharge home. Patient will benefit from home healthPT in order to address the impairments above. Patient is safe to discharge from acute PT when medically cleared. PT will be available for duration of acute stay to address the above impairments. Pt and his instructed in basic HEP. Pt to focus on ambulation. Pt instructed to avoid any active hip flexion. Plan No further PT needs at acute level identified. Recommend continued PT following discharge to address, strength, ROM, balance, and functional mobility. PT available for consult for duration of acute stay. Plan of care has been discussed with the patient and the patient is in agreement. Charges: EVAL, GT Level of Eval Complexity Total # of Factors: 1-2 Body System / Element Factors: 1-2 Clinical Presentation: stable, uncompliacted Clinical Decision Making Complexity Score: Low Time In: 220PM Total time: 20 minutes Marcelle Enamorado PT 04/13/2022 Physical Therapy Rehabilitation Department * Initial Assessments - Pattie Aguilar OT - 04/13/2022 2:53 PM EDT Occupational Therapy [facility] Evaluation [facility] Complexity: Low - [id number] Diagnosis: S/P left total hip arthroplasty; Dr. Peterson Rehab Potential: Good Frequency: evaluation only Duration of Therapy Interventions: Evaluation Only Start Time: 1315 Total Minutes: 40 minutes Equipment Recommendations: None Recommended Adaptive Equipment: Provided Adaptive Equipment: Discharge Recommendations: home with home health, home with outpatient therapy services Barriers to d/c at this time include: Precautions: Anticoagulation, Fall Risk Anticoagulation Precautions: Aspirin Weight-Bearing Status: Left Lower Extremity (Weight-bearing Status): weight-bearing as tolerated (WBAT) Patient Assessment: Patient is a 62 y.o. male admitted for S/P left total hip arthroplasty; Dr. Peterson. Patient's history significant for Past Medical History: Diagnosis Date ??? CPAP (continuous positive airway pressure) dependence ??? Diabetes ??? Gastroesophageal reflux ??? High blood pressure ??? Hypothyroid ??? Obstructive sleep apnea Past Surgical History: Procedure Laterality Date ??? BACK SURGERY 02/2020 ? ? PRO CORTEZ FACETECTOMY&FORAMOT 1 VRT SGM EA ADDL SGM Bilateral 05/05/2020 ADD'L INTERSPACES CX., THORACIC, LUMBAR (WRVU 3.47) performed by Mychal Chapa MD at [facility] MAIN OR ??? PRO LAMINEC/FACETECT/FORAMIN, LUMBAR 1 SEG Bilateral 05/05/2020 LAMINECTOMY, FACETECTOMY & FORAMINOTOMY,LUMBAR, ONE LEVEL (WRVU 15.37) performed by Mychal Chapa MD at [facility] MAIN OR ??? SHOULDER ARTHROSCOPY 11/2019 Patient Active Problem List Diagnosis Code ??? Spinal stenosis of lumbar region M48.061 ??? s/p L3-4 laminectomy 05/05/[address] Chapa Z98.890 ??? Pain in left hip M25.552 ??? Diabetes mellitus E11.9 ??? Hypertension I10 ??? S/P left total hip arthroplasty; Dr. Peterson 04/13/2022 Z96.649 Chart reviewed, evaluation completed. Patient agreeable to engage in session. Patient demonstrated decreased self-care, decreased functional mobility, decreased strength, impaired Range of Motion anddecreased sitting / standing balance impacting his ability to otherwise engage in chosen occupation(s). Pt completed general joint recovery education, total body dressing, toileting, fxl mobility andAE education. Pt showed good carryover of strategies, no further acute OT recommended at this time.Plan for increased family/friend support and follow up services ( home health recommended) Patient Living Environment: Home Setup Patient Lives: spouse / significant other What type of home is it?: single level, house/condo/apartment Are there stairs to enter your home?: Stairs to enter How many stairs?: 5 Do the stairs have railings?: left handrail Are there stairs inside your home?: No Bathroom Location: bathroom on main floor Main Floor Bathroom Setup: walk in shower, shower chair, standard toilet Equipment patient has at home: AE hip kit, FWW, shower chiar Are there children in the home?: NA Are there pets in the home?: NA Patient Prior Level of Functioning: PLOF ADLs ADLs: Independent with all ADL's PLOF IADLs IADLs: Independent with all IADL's Prior Level of Mobility Mobility: Independent with all mobility Occupational History / Life Expereinces 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 History of Falls Do you have a history of falls?: No Cognition Orientation Status (Cognition): oriented x 4 Follows Commands (Cognition): WFL Behaviors: cooperative Mental Status: pleasant, WNL Mobility: Bed Mobility Bed Mobility: Modified Independent with (see comment) Assistive Equipment: head of bed elevated Supine / Sit Supine / Sit Mobility: Modified Independent Assistive Equipment: head of bed elevated Sit / Stand Sit to Stand: Supervision, Assist of 1, with cues (see comment) Assistive Equipment: FWW, gait belt Surfaces Used: bed Sit / Supine Sit / Supine Mobility: Modified Independent Assistive Equipment: head of bed elevated Ambulation Ambulation: Supervision, Assist of 1, with cues (see comment) Assistive Equipment: FWW, gait belt Ambulation Distance (feet): 30~ Toilet Toilet Transfer: Supervision, Assist of 1, with cues (see comment) Assistive Equipment: FWW, gait belt Range of Motion: LUE ROM ROM Left Upper Extremity: Left Upper Extremity WFL RUE ROM ROM Right Upper Extremity: Right Upper Extremity WFL Strength: Strength: LUE WFL, RUE WFL ADLs / IADLs: Dressing Dressing: Lower Body Overhauler Helper Top: Supervision, Setup assist, Verbal Cues Underwear: Supervision, Setup assist, Verbal Cues Pants: Supervision, Setup assist, Verbal Cues Socks: Verbal Cues, Setup assist, Min A Shoes: Min A, Supervision, Setup assist Toileting Toileting: in bathroom, Supervision Education: patient have been educated on Role of occupational therapy/rehabilitation, Transfers, Assistive device/technique, Adaptive equipment training, ADL, Safety, Precautions/Protocol, Functional Mobility, Activity pacing/Energy conservation, Balance, Recommendations, Family training and Discharge planning and verbalize and demonstrate understanding. Level of Eval Complexity History: Brief history including review of medical record - Low Examination: Identification of 1-3 performance deficits - Low Level of Assistance: No comorbidities that affect occupational performance: modification of tasks or assistance is not needed to complete eval - Low Clinical Decision Making Complexity Score: Low - [id number] Pattie Aguilar OT 04/13/2022 Occupational Therapy Rehabilitation Department * Initial Assessments - Annabelle Zhang RN - 04/13/2022 2:24 PM EDT Case Management Initial Assessment Annabelle Zhang RN reviewed record and discussed patient with Interdisciplinary Team. SANTO introduced self and role of Case Management to patient and services accepted. Contact card left for patientand family???s reference. Source of Information: Patient, Spouse, Chart Review Reason for Hospitalization: 04/13/2022 POD #0 s/p Left TIFFANIE Past medical History: Past Medical History: Diagnosis Date ??? CPAP (continuous positive airway pressure) dependence ??? Diabetes ??? Gastroesophageal reflux ??? High blood pressure ??? Hypothyroid ??? Obstructive sleep apnea Hospitalized in the last 30 days: no previous admission in last 30 days Current decision making capacity: Self Advance Care Planning: Attempt Cardiopulmonary Resuscitation - Inpatient <no information> -Advanced Directive: No, need to discuss If AD's have not been completed spouse Serena Clemons would be surrogate decision maker per [place] surrogate decision making law. (Only good for 180 days) Any patient receiving care at [facility] must abide by [place] law. The hierarchy for surrogate decision making is: (a) Patient???s spouse, or civil union partner or common law spouse unless there is a divorce proceeding, separation agreement, or restraining order limiting that person???s relationship with the patient. (b) Any adult son or daughter of the patient. (c) Either parent of the patient. (d) Any adult brother or sister of the patient. (e) Any adult grandchild of the patient. (f) Any grandparent of the patient. (g) Any adult aunt, uncle, niece, or nephew of the patient. (h) A close friend of the patient. (i) The agent with financial power of attorney recruiter or a conservator appointed in accordance with RSA 464-A. (j) The guardian of the patient???s estate. Functional status prior to admission: Independent Current functional status: Assistive Equipment, Assistive Person Home environment: Others in the home: spouse. Current Living Arrangements: home/apartment/condo. Accessibility Concerns:no concerns. Community Resources being provided currently: none Behavioral Health History: no mention of depression, anxiety, or othe ental health concerns Substance Use/Abuse confirmed: Social History Tobacco Use Smoking Status Former Smoker ??? Types: Cigarettes ??? Quit date: 2006 ??? Years since quittin.5 Smokeless Tobacco Never Used 0 No problems reported 1-2 Low level 3-5 Moderate level 6-8 Substantial level 9- 10 Severe level 0 to 7 points: Low risk 8 to 15 points: Medium risk 16 to 19 points: High risk 20 to 40 points: Addiction likely Primary Care Provider: Adelita Charles MD [phone] Pharmacy: [facility] [place], [place] [address] [facility] [address] [place], [place] [address] [facility] [address] Health Coverage: Primary Insurance: CIGNA Secondary Insurance: N/A Other: Prescription Coverage: Yes Status: Patient is a : No Anticipated Services at discharge: home health care, outpatient care DME: none, other (see comments), walker - standard (Has FWW) Transportation Anticipated: family or friend will provide Concerns to be Addressed: discharge planning Agency Referrals: I have met with the patient to: ?? discuss discharge planning needs. ?? provide a list of Home Health Agencies / Durable Medical Equipment vendors which serve their preferred geographic area. ?? provided patient with CMS Star Quality Rating handout. They have requested referrals to: [facility] For PT/OT Note routed to a Call Center Manager who will communicate referrals to facilities and provide any required information. Plan: DC Planning at bedside with patient and his spouse. Patient anticipates discharge home 04/13/2022 if cleared by PT/OT following POD #0 s/p Left TIFFANIE. Spouse (Serena) is available 07/05 over the next 3-4 weeks to assist patient as needed. Patient agreeable to VNA referral. No housing, transportation, insurance, or financial concerns voiced at this time. Has some DME (FWW); resources provided if additional DME is recommended. The best phone number to reach you post discharge is [phone] A member of the Case Management team will continue to monitor progress and collaborate with the interdisciplinary team to create a safe discharge plan. See [facility] guidelines for further clinical documentation during patient???s hospital stay. Annabelle Zhang RN Office of Care Management * Op Note - Bret Peterson MD - 04/13/2022 10:26 AM EDT [facility] Operative Note [facility] [address] [id number] Patient Name: Kaushik Clemons : [id number] MR#: [id number] Case Date: 04/13/2022 Surgery Start Time: 1025 Surgery Stop Time: 1128 Date: April 13, 2022 Surgeon: Bret Peterson MD Machine Hand: MERON No C D Area Supervisor: Lex Ward CRNA Anesthesia: Spinal and sedation Pre-operative diagnosis: Left hip osteoarthritis, severe Body mass index is 33 kg/m??. Post-operative diagnosis: Same Surgical Procedure Performed: Injection left hip with marcaine 0.25% with epi, 4 mg morphine, ketorolac 15 mg, clonidine 50 mcg and Solu-Medrol (40 mg) into subcutaneous and deep tissues, and joint space. Left total hip arthroplasty, anterior Hueter approach with [place] table Left hip intraoperative radiologic examination Findings: Severe OA, good bone density Components Used: Perea and Nephew Polarstem femoral system R3 acetabular system Bearing surface: ceramic on polyethylene Antibiotics: As per orders Irrigation: Plain saline (no additives) Estimated Blood Loss: 200 cc Unexpected Events: None Weight bearing status: Full WBAT with walker x 1-2 week, then with cane until end of first month post-operatively Wound closure and dressing: Monocryl 4-0 and Prineo dressing. No stitches or ofelia to remove. Dressing changes: Surgical dressing to be left in place for 5 days before removal. Follow-up Plan: In 4 weeks post-operatively with televideo appointment if there are no significant concerns. Anticoagulation: As per postop orders Possible barriers to discharge: None Anticipated Length of Stay: 0-1 days. Special orders: No dislocation precautions, no abduction pillow. Please use SCDs on both legs This is a patient who has failed nonoperative treatment for severely symptomatic hip osteoarthrosis, including activity modification, anti-inflammatory medications, and physical therapy. Patient continues to have significant activity-limiting disability that is reducing quality of life and causing daily discomfort. Prior to this procedure, informed consent was obtained and the patient was fully educated about surgical as well as nonoperative options. Patient understood the benefits of total hiparthroplasty as including a probable reduction of pain and improvement of joint function. Also understood were potential risks of infection, deep venous thrombosis, pulmonary embolus, stroke, fracture, continued pain or stiffness, bleeding, nerve or blood vessel injury, implant failure that may require further surgical procedures and possible cardiopulmonary morbidity or even . Patient understood and elected to proceed with the following procedure. Technique: Patient was taken to the operating room and a spinal anesthetic was induced. According to AAOS recommendations, prophylactic antibiotics were administered within one hour of incision time, 2 g intravenous tranexamic acid. A timeout was performed. Patient was positioned supine on the [place] table, both feet and ankles were padded and then carefully placed in the traction boots. The perineal post wasalso padded with webril. The patient was then prepped and draped in the usual sterile manner using alcohol and then DuraPrep. Hip Exposure and capsulotomy: We marked out a vertical incision over the anterior aspect of the hip, proceeding distally about 11 cm. Marcaine 0.25% plain (10 cc) anesthetic was infiltrated into the skin. Incision was then made and the subcutaneous fat was held apart with small self-retaining retractors. The fascia of the TFL was identified, infiltrated with local anesthetic and then incised longitudinally. The anterior extent of this fascia was held into Allis clamps. Using blunt dissection, the tensor fascia muscle was freed from surrounding tissues and, reflected posteriorly with a Valentina retractor. This exposed the anterior hip capsule, and a narrow femoral retractor was placed over the superior femoral neck, a rounded Cobra retractor was placed inferiorly beneath the femoral neck. A second Cobra was placed superiorly above the femoral neck to improve visualization of the capsular incision. The perforating leashes of vessels (anterior circumflex artery and veins) were identified but not coagulated. The capsule was then infiltrated with the anesthetic mixture, and an L-shaped capsulotomy was then made with cautery, one limb in line with the superior femoral neck and the other cornelia perpendicular direction at the base of the neck. Both Cobra retractors were then placed intracapsular, synovial fluid was suctioned and visible osteophytes were removed. Dislocation and femoral neck cut: The femoral neck was cut twice with a reciprocating saw, once at the anticipated resection site (determined by pre- operative templating) and once more proximally to assist with head removal. A corkscrew on power was then inserted into the femoral head. Four cranks of gross traction were placed on the operated leg, with 60 degrees external rotation, and this allowed distraction of the head from the socket. It also allowed for removal of the femoral head. Acetabular exposure and preparation: Curved retractors were placed anteriorly and posteriorly over the wall of the acetabulum. The femur was translated lateral and posterior to the acetabulum and this allowed excellent acetabular exposure, the labrum was then resected and reaming began at 51 mm. Weproceeded incrementally up to 52 mm at which time we had circumferential bleeding bone. An acetabular component was placed and found to have excellent rim fit. No screw fixation was placed. The component was then checked under fluoroscopic control, aiming for a lateral abduction of about 40??, and anteversion of about 20??. A liner was placed and impacted according to carpenter inspector's instructions.Any impinging osteophytes were removed. Attention then turned to the femur. Femoral exposure: After removal of acetabular retractors, the traction was released and the femur was externally rotated to about 100??. The posterior quadrant of the femur was released including thecapsule over the mamillary process, allowing anterior mobilization of the femur. A Petit retractor was then placed beneath the greater trochanter. A lateral and superior force was applied with a hand placed over the posterolateral extent of the greater trochanter. This allowed the greater trochanter to disengage from the posterior column of the acetabulum and then to elevate the femur anteriorly. While holding the femur in this position, the positioning arm of the operated leg was dropped to full extension and maximal allowable adduction. No HANA hook was used. The femur was then held elevated, a femoral elevator was placed under the calcar and this was used to displace the femur superiorly and laterally. At the same time, the assistant terminal manager leaned against the thigh to optimize femoral adduction. At this point, special attention was turned to the soft tissues laterally to the resected femoral neck. A rongeur was used to remove any remnant of the femoral neck and we then proceeded to use a Bovie to reflect circumferentially the soft tissues around the resected neck. Finally, all remaining tissues in the piriformis fossa were resected using cautery, but the conjoined tendon was not cut. This gave us a clear view of the entire resected neck footprint, as well as the piriformis fossa and the medialmost aspect of the greater trochanter. Femoral preparation: The rat-tail rasp and then the first broach was used to enter the femoral metaphysis in line with the posterior femoral cortex, at about 10?? of anteversion. The broach was used to enlarge the femoral opening, then broaching continued, applying a force against the greater trochanter to ascertain that the broach remained has fully lateral as possible with every pass. We proceeded with broaching incrementally until a size 2 was fully seated. We then used the calcar planer to resect any remaining calcar that extended proximal to the stem's final resting position. A trial neck and standard femoral head were placed, the Petit retractor was disengaged and fully relaxed. The operated hip was then brought back into neutral position by bringing the leg out of adduction and extension. After neutral position was reestablished, about 90?? of external rotation were placed on the operated leg followed by 2 cranks of gross traction. The blood loss was noted off the Solomon suction machine, and the acetabulum was then irrigated and cleared of all debris. The hip was then internally rotated to 20?? external rotation. This allowed easy reduction of the hip. Full rotational range of motion was tested, confirming that there was no impingement of the femoral neck against the acetabular component either anteriorly or posteriorly. Fluoroscopic imaging was used to confirm proper offset and leg length as well as femoral broach position. At this point, 2 cranks of gross traction were placed on the operated leg, again the hip was externally rotated to about 90?? external rotation allowing easy dislocation. All traction was released, and the proximal femur was elevated and pulled laterally. The position of adduction and hip extension was reestablished by moving the positioning arm on the operated leg and then externally rotating the femur to about 90??. Again, the femur was lateralized and lifted, the Petit retractor was then engaged to support this position. All trial implants were removed and the actual femoral implant was then inserted with gentle taps from a mallet, and the femoral head was then impacted on the clean trunion. The proximal femur was lowered once more, the Petit retractor was removed and the leg was brought back to a neutral position, 2 cranks of traction along with 30?? of external rotation were followed by internal rotation to 20?? and release of traction which allowed reduction of the hip joint. Stability testing was carried out to confirm non-dislocatability, and leg length optimization was confirmed with flouroscopy. Closure: After thorough irrigation, and coagulation of any visible bleeders, the capsule was repaired with interrupted Vicryl 1, the tensor fascia anh muscle was allowed to come back to its anatomicposition and irrigated, and a running Quill #1 suture was used to close the fascia. Fat was closed with inverted Vicryl zero, more superficially with Vicryl 2-0 and then Monocryl and Prineo were usedto close skin, and a dry sterile 4 x 4 dressing was applied and covered with a sterile dressing. All counts were correct. Patient was transferred back to the hospital bed from the [place] table and boots were removed. No abduction pillow was placed. The patient returned to the recovery room in stable c ondition. The surgical services manager, MERON No, worked under my direction for the duration of the operative session. The assistant terminal manager meticulously prepped the operative site and maintained the best possible exposure of anatomy for the procedure for its duration. Implant Information: Implant Name Type Inv. Item Serial No. Supply Chain Logistics Manager Lot No. LRB No. Used Action SHELL ACET HIP 52MM POR SOLID TI R3 ([id number]) (AutoReq) - [id number] IMPLANTS SHELL ACET HIP 52MM POR SOLID TI R3 ([id number]) (AutoReq) [employer] - PEREA NEPH [id number] Left 1 Implanted LINER ACET HIP [id number] 0D POLY R3 ([id number]) (AutoReq) - [id number] IMPLANTS LINER ACET HIP [id number] 0D POLY R3 ([id number]) (AutoReq) [employer] - PERE[employer] NEPH [id number] Left 1 Implanted STEM FEMORAL HIP SZ 2 PROX 135D POR CLLR STND OFST TI ([id number]) (AutoReq) - [id number] IMPLANTS STEM FEMORAL HIP SZ 2 PROX 135D POR CLLR STND OFST TI ([id number]) (AutoReq) [employer] - PEREA NEPH [id number] Left 1 Implanted HEAD FEMORAL HIP 36MM +0MM OFFSET 12/14 TPR ZIRCNM OXINIUM ([id number]) (AutoReq) - [id number] IMPLANTS HEAD FEMORAL HIP 36MM +0MM OFFSET 12/14 TPR ZIRCNM OXINIUM ([id number]) (AutoReq) [employer] - PERE[employer] NEPH [id number] Left 1 Implanted TG 1 RG 0 documented in this encounter Plan of Treatment Scheduled Referrals Name Type Priority Associated Diagnoses Orde r Schedule Referral to Home Health Outpatient Referral Routine Status post total replacement of left hip Ordered: 04/13/2022 documented as of this encounter Procedures Procedure Name Priority Date/Time Associated Diagnosis Comments XR FLUORO NO RAD <1HR - OR USE Routine 04/13/2022 11:11 AM EDT MODIFIER [employer] - R3 ACETABULAR CUP 04/13/2022 9:56 AM EDT Primary osteoarthritis of left hip MODIFIER [employer] - POLAR STEM CEMENTLESS 04/13/2022 9:56 AM EDT Primary osteoarthritis of left hip Arthroplasty Acetabular/Prox Fem Prostc Agrft/Algrft (46586) 04/13/2022 9:56 AM EDT Primary osteoarthritis of left hip POCT GLUCOSE Routine 04/13/2022 8:38 AM EDT documented in this encounter Results * XR Fluoro No Rad <1Hr - OR Use (04/13/2022 11:11 AM EDT) Narrative Dicom, Auditing User - 04/13/2022 11:12 AM EDT This exam is auto-finalizing. No interpretation was done. Bret Peterson MD IMG FLUORO ORDERABLE S * POCT Glucose (04/13/2022 8:38 AM EDT) Glucose, POC 139 65 - 199 mg/dL [facility] Comment: Supplemental ranges: <140 mg/dL before meals <180 mg/dL all other times of the day Blood 04/13/2022 8:38 AM EDT 04/13/2022 8:38 AM EDT Bret Peterson MD POINT OF CARE TEST O RDERABLES [facility] [address] [place] [address] documented in this encounter Visit Diagnoses Diagnosis S/P left total hip arthroplasty; Dr. Peterson 04/13/2022- Primary Hip joint replacement by other means Status post total replacement of left hip documented in this encounter Admitting Diagnoses Diagnosis S/P total hip arthroplasty Hip joint replacement by other means documented in this encounter Administered Medications Inactive Administered Medications - up to 3 most recent administrations Medication Order MAR Action Action Date Dose Rate Site acetaminophen (Tylenol) tablet 500 mg 500 mg, Oral, EVERY 4 HOURS SCHEDULED, First dose on Alison 04/13/22 at 1330, Until Discontinued, Maximum dose of acetaminophen is 4000 mg from all sources in 24 hours. When ordered for pain, acetaminophen should be given even when other ordered pain medications are indicated. , Routine Given 04/13/2022 4:48 PM EDT 500 mg Given 04/13/2022 12:56 PM EDT 500 mg allopurinoL (Zyloprim) tablet 300 mg 300 mg, Oral, DAILY, First dose on Alison 04/13/22 at 1330, Until Discontinued, Routine Given 04/13/2022 12:5 6 PM EDT 300 mg amLODIPine (Norvasc) tablet 10 mg 10 mg, Oral, NIGHTLY, First dose on Alison 04/13/22 at 2100, Until Discontinued, Routine atenoloL (Tenormin) tablet 50 mg 50 mg, Oral, NIGHTLY, First dose on Alison 04/13/22 at 2100, Until Discontinued, Routine chlorthalidone (Hygroten) tablet 25 mg 25 mg, Oral, NIGHTLY, First dose on Alison 04/13/22 at 2100, Until Discontinued, Routine HYDROmorphone (Dilaudid) (1 mg/mL) injection syringe 0.2 mg 0.2 mg, Intravenous, EVERY 3 HOURS PRN, Starting on Alison 04/13/22 at 1240, Until Alison 04/13/22 at 1904, Pain, Give 0.2 mg for mild to moderate pain (1-6)/10. Use oral option for pain relief first if ordered. If patient is unable to take orally, use IV option for pain relief, Routine HYDROmorphone (Dilaudid) (1 mg/mL) injection syringe 0.4 mg 0.4 mg, Intravenous, EVERY 3 HOURS PRN, Starting on Alison 04/13/22 at 1240, Until Alison 04/13/22 at 1904, Pain, Give 0.4 mg for severe pain (7-10)/10. Use oral option for pain relief first if ordered. If patient is unable to take orally, use IV option for pain relief., Routine HYDROmorphone (Dilaudid) tablet 2 mg 2 mg, Oral, EVERY 3 HOURS PRN, Starting on Alison 04/13/22 at 1240, Until Alison 04/13/22 at 1904, Pain, Give 2 mg for mild to moderate pain (1-6)/10. Use oral option for pain relief first. If patient is unable to take orally, use IV option for pain relief, if ordered., Routine HYDROmorphone (Dilaudid) tablet 4 mg 4 mg, Oral, EVERY 3 HOURS PRN, Starting on Alison 04/13/22 at 1240, Until Alison 04/13/22 at 1904, Pain, Give 4 mg for severe pain (7-10)/10. Use oral option for pain relief first. If patient is unable to take orally, use IV option for pain relief, if ordered., Routine Given 04/13/2022 4:48 PM EDT 4 mg Given 04/13/2022 1:42 PM EDT 4 mg lactated ringers infusion 1,000 mL, at 100 mL/hr, Intravenous, CONTINUOUS, Starting on Alison 04/13/22 at 1330, Until Alison 04/13/22 at 1904 New Bag 04/13/2022 12:58 PM EDT 1,000 mLs 100 mL/hr lactobacillus with pectin capsule 1 capsule 1 capsule, Oral, 2 TIMES DAILY, First dose on Alison 04/13/22 at 1330, Until Discontinued, Routine Given 04/13/2022 12:56 PM EDT 1 capsule lisinopriL (Zestril) tablet 20 mg 20 mg, Oral, NIGHTLY, First dose (after last modification) on Alison 04/13/22 at 2100, Until Discontinued, Routine ondansetron (pf) (Zofran) (2 mg/mL) injection 4 mg 4 mg, Intravenous, EVERY 8 HOURS PRN, Starting on Alison 04/13/22 at 1240, Until Alison 04/13/22 at 1904, Nausea, Vomiting, May repeat times one in 30 minutes if ineffective. If multiple antiemetics are ordered, use ondansetron first, Routine Given 04/13/2022 2:13 PM EDT 4 mg ondansetron (Zofran) tablet 4 mg 4 mg, Oral, EVERY 8 HOURS PRN, Starting on Alison 04/13/22 at 1240, Until Alison 04/13/22 at 1904, Nausea, Vomiting, If multiple antiemetics are ordered, use ondansetron first. PO Preferred. If patient unable to take PO, may give IV if ordered. May repeat times one in 45 minutes if ineffective., Routine pantoprazole EC (Protonix) tablet 40 mg 40 mg, Oral, DAILY, First dose on Alison 04/13/22 at 1330, Until Discontinued, DO NOT CRUSH OR OPEN Given 04/13/2022 12:56 PM EDT 40 mg sodium chloride 0.9 % (flush) (BD PosiFlush Normal Saline 0.9) flush 3 mL 3 mL, Intravenous, EVERY 12 HOURS SCHEDULED (2 times per day), First dose on Alison 04/13/22 at 1330, Until Discontinued, Routine Given 04/13/2022 12:57 PM EDT 3 mLs documented in this encounter Active and Recently Administered Medications Times are shown in EDT. Scheduled Medication Order 04/11/2022 04/12/2022 04/13/2022 acetaminophen (Tylenol) tablet 500 mg 500 mg, Oral, EVERY 4 HOURS SCHEDULED, First dose on Alison 04/13/22 at 1330, Until Discontinued, Maximum dose of acetaminophen is 4000 mg from all sources in 24 hours. When ordered for pain, acetaminophen should be given even when other ordered pain medications are indicated. , Routine 1256 (Given - Provid er: Jennifer Richardsno RN)1648 (Given - Provider: Jennifer Richardson RN) allopurinoL (Zyloprim) tablet 300 mg 300 mg, Oral, DAILY, First dose on Alison 04/13/22 at 1330, Until Discontinued, Routine 1256 (Given - Provid er: Jennifer Richardson RN) amLODIPine (Norvasc) tablet 10 mg 10 mg, Oral, NIGHTLY, First dose on Alison 04/13/22 at 2100, Until Discontinued, Routine aspirin EC tablet 81 mg 81 mg, Oral, 2 TIMES DAILY, First dose on Alison 04/13/22 at 2100, Until Discontinued, Routine atenoloL (Tenormin) tablet 50 mg 50 mg, Oral, NIGHTLY, First dose on Alison 04/13/22 at 2100, Until Discontinued, Routine ceFAZolin (Ancef) 3 g in sodium chloride 0.9% 150 mL (using 3 x 1 g/50 mL MB+) infusion (COMPLETED) 3 g, Intravenous, EVERY 4 HOURS, 1 dose, First dose on Alison 04/13/22 at 0815, Administer over 10 Minutes, Administer over 30 minutes, Redose after 4 hours. Total dose of ceFAZolin 3 grams, administered using three ceFAZolin 1 gram vials attached to 50 mL MB+ bags. Infuse each ceFAZolin 1g/50mL dose over 10 minutes (300 ml/hr) for total infusion time of 30 minutes. In MAR, document administration of first bag using New Bag (1 of 3) MAR action for dose of 1 g. In MAR, document second bag using Next Bag (2 of 3) MAR action for dose of 1 g. In MAR, document third bag using Next Bag (3 of 3) MAR action for dose of 1 g., Day of Surgery (Day of Procedure), Indication for (Active or Suspected): Prophylaxis 1010 (New Bag - Prov ider: Martin Ward CRNA) chlorthalidone (Hygroten) tablet 25 mg 25 mg, Oral, NIGHTLY, First dose on Sun04/13/22 at 2100, Until Discontinued, Routine gabapentin (Neurontin) capsule 300 mg 300 mg, Oral, NIGHTLY, First dose on Sun04/13/22 at 2100, Until Discontinued, Routine ketorolac (Toradol) (30 mg/mL) injection 30 mg 30 mg, Intravenous, EVERY 6 HOURS, 20 doses, First dose on Sun04/13/22 at 1630, Last dose on Sun04/18/22 at 1030, to begin 6 hours post last dose given in OR or PACU, Routine 1630 (Due) lactobacillus with pectin capsule 1 capsule 1 capsule, Oral, 2 TIMES DAILY, First dose on Sun04/13/22 at 1330, Until Discontinued, Routine 1256 (Given - Provid er: Jennifer Richardson RN) levothyroxine (Synthroid) tablet 75 mcg 75 mcg, Oral, DAILY, First dose on Sun04/14/22 at 0900, Until Discontinued, Routine lisinopriL (Zestril) tablet 20 mg 20 mg, Oral, NIGHTLY, First dose (after last modification) on Sun04/13/22 at 2100, Until Discontinued, Routine metFORMIN (Glucophage) tablet 1,000 mg 1,000 mg, Oral, 2 TIMES DAILY WITH MEALS, First dose on Sun04/13/22 at 1700, Until Discontinued, Routine 1700 (Due) pantoprazole EC (Protonix) tablet 40 mg 40 mg, Oral, DAILY, First dose on Sun04/13/22 at 1330, Until Discontinued, DO NOT CRUSH OR OPEN 1256 (Given - Provid er: Jennifer Richardson RN) senna-docusate (Pericolace) 8.6-50 mg per tablet 1 tablet 1 tablet, Oral, 2 TIMES DAILY, First dose on Sun04/13/22 at 2100, Until Discontinued, Routine sodium chloride 0.9 % (flush) (BD PosiFlush Normal Saline 0.9) flush 3 mL 3 mL, Intravenous, EVERY 12 HOURS SCHEDULED (2 times per day), First dose on Sun04/13/22 at 1330, Until Discontinued, Routine 1257 (Given - Provid er: Jennifer Richardson RN) Continuous Medication Order 04/11/2022 04/12/2022 04/13/2022 lactated ringers infusion 1,000 mL, at 100 mL/hr, Intravenous, CONTINUOUS, Starting on Alison 04/13/22 at 1330, Until Alison 04/13/22 at 1904 1258 (New Bag - Prov ider: Jennifer Richardson RN)1904 (Due: Stopped) PRN Medication Order 04/11/2022 04/12/2022 04/13/2022 bisacodyL (Dulcolax) suppository 10 mg 10 mg, Rectal, ONCE PRN, 1 dose, Starting on Alison 04/13/22 at 1240, Until Alison 04/13/22 at 1904, Constipation, Administer if no bowel movement within 72 hours and Miralax given with no results If multiple PRN bowel medications ordered, start with Miralax, then bisacodyL. Multiple medications may be given concomitantly for constipation. , Routine BUpivacaine (pf) (Marcaine) (2.5 mg/mL) 0.25% injection (CANCELED) ONCE PRN, Starting on Alison 04/13/22 at 1032, Until Alison 04/13/22 at 1236, Intra-Operative (Intra-Procedure), Routine 1032 (Given - Provid er: Bret Peterson MD - Comment: INJECTED INTO LEFT SKIN INCISION SITE.) cyclobenzaprine (Flexeril) tablet 10 mg 10 mg, Oral, 2 TIMES DAILY PRN, Starting on Alison 04/13/22 at 1240, Until Alison 04/13/22 at 1904, Muscle spasms, Routine diphenhydrAMINE (Benadryl) capsule 25 mg 25 mg, Oral, EVERY 8 HOURS PRN, Starting on Alison 04/13/22 at 1240, Until Alison 04/13/22 at 1904, Itching, Routine HYDROmorphone (Dilaudid) (1 mg/mL) injection syringe 0.2 mg(Linked Group 1) 0.2 mg, Intravenous, EVERY 3 HOURS PRN, Starting on Alison 04/13/22 at 1240, Until Alison 04/13/22 at 1904, Pain, Give 0.2 mg for mild to moderate pain (1-6)/10. Use oral option for pain relief first if ordered. If patient is unable to take orally, use IV option for pain relief, Routine 1342 (See Alternativ e - Provider: Jennifer Richardson RN)1648 (See Alternative - Provider: Jennifer Richardson RN) HYDROmorphone (Dilaudid) (1 mg/mL) injection syringe 0.4 mg(Linked Group 1) 0.4 mg, Intravenous, EVERY 3 HOURS PRN, Starting on Alison 6/30/22 at 1240, Until Alison 6/30/22 at 1904, Pain, Give 0.4 mg for severe pain (7-10)/10. Use oral option for pain relief first if ordered. If patient is unable to take orally, use IV option for pain relief., Routine 1342 (See Alternativ e - Provider: Jennifer Richardson RN)1648 (See Alternative - Provider: Jennifer Richardson RN) HYDROmorphone (Dilaudid) tablet 2 mg(Linked Group 1) 2 mg, Oral, EVERY 3 HOURS PRN, Starting on Alison 6/30/22 at 1240, Until Alison 6/30/22 at 1904, Pain, Give 2 mg for mild to moderate pain (1-6)/10. Use oral option for pain relief first. If patient is unable to take orally, use IV option for pain relief, if ordered., Routine 1342 (See Alternativ e - Provider: Jennifer Richardson RN)1648 (See Alternative - Provider: Jennifer Richardson RN) HYDROmorphone (Dilaudid) tablet 4 mg(Linked Group 1) 4 mg, Oral, EVERY 3 HOURS PRN, Starting on Alison 6/30/22 at 1240, Until Alison 6/30/22 at 1904, Pain, Give 4 mg for severe pain (7-10)/10. Use oral option for pain relief first. If patient is unable to take orally, use IV option for pain relief, if ordered., Routine 1342 (Given - Provid er: Jennifer Richardson RN)1648 (Given - Provider: Jennifer Richardson RN) LORazepam (Ativan) (2 mg/mL) injection 0.5 mg 0.5 mg, Intravenous, EVERY 6 HOURS PRN, Starting on Alison 04/13/22 at 1240, Until Alison 622 at 1904, Anxiety, If medication ordered subcutaneously, do not administer more than 2 mL as a single injection., Routine magnesium hydroxide (Milk of Magnesia) (240 mg/mL) oral liquid 10 mL 10 mL, Oral, ONCE PRN, 1 dose, Starting on Alison 04/13/22 at 1240, Until Alison 6 at 1904, Constipation, Administer if needed per patient's routine or if no bowel movement within 72 hours. If multiple PRN bowel medications ordered, start with Miralax, then bisacodyL, then Milk of Magnesia., Routine methylPREDNISolone acetate (DEPO-Medrol) (40 mg/mL) injection (CANCELED) ONCE PRN, Starting on Alison 04/13/22 at 1033, Until Alison 6 at 1236, Intra-Operative (Intra-Procedure), Routine 1033 (Given - Provid er: Bret Peterson MD - Comment: LEFT HIP INJECTION MIXED WITH: MORPHINE 4MG R.E.C.K. INJECTION, 50ML) miconazole (Micotin) 2 % powder Topical (Top), 2 TIMES DAILY PRN, Other, perineal / pannus care as needed, Starting on Alison 04/13/22 at 1240, Until Alison 6 at 1904 morphine 4 mg/mL multi-dose carpuject (CANCELED) ONCE PRN, Starting on Alison 04/13/22 at 1034, Until Alison 04/13/22 at 1236, Intra-Operative (Intra-Procedure), Routine 1034 (Given - Provid er: Bret Peterson MD - Comment: LEFT HIP INJECTION MIXED WITH: DEPOMEDROL 40MG R.E.C.K. INJECTION, 50ML) ondansetron (pf) (Zofran) (2 mg/mL) injection 4 mg(Linked Group 2) 4 mg, Intravenous, EVERY 8 HOURS PRN, Starting on Alison 04/13/22 at 1240, Until Alison 622 at 1904, Nausea, Vomiting, May repeat times one in 30 minutes if ineffective. If multiple antiemetics are ordered, use ondansetron first, Routine 1413 (Given - Provid er: Jennifer Richardson RN) ondansetron (Zofran) tablet 4 mg(Linked Group 2) 4 mg, Oral, EVERY 8 HOURS PRN, Starting on Alison 622 at 1240, Until Alison 6 at 1904, Nausea, Vomiting, If multiple antiemetics are ordered, use ondansetron first. PO Preferred. If patient unable to take PO, may give IV if ordered. May repeat times one in 45 minutes if ineffective., Routine 1413 (See Alternativ e - Provider: Jennifer Richardson RN) polyethylene glycoL (Miralax) packet 17 g 17 g, Oral, DAILY PRN, Starting on Alison 04/13/22 at 1240, Until Alison 6 at 1904, Constipation, Start Post OP day 1 if no BM , Routine YNunydbmjwa-YPUZJLTtblw-rjdAKCeyl -ketorolac (RHODA) (2.46 mg-0.005 mg-0.0008 mg-0.3 mg/mL) niels-articular inj soln in sodium chloride (CANCELED) ONCE PRN, Starting on Alison 04/13/22 at 1034, Until Alison 6 at 1236, Intra-Operative (Intra-Procedure), Routine 1034 (Given - Provid er: Bret Peterson MD - Comment: LEFT HIP INJECTION MIXED WITH: DEPOMEDROL 40MG MORPHINE 4MG) sodium chloride 0.9 % (flush) (BD PosiFlush Normal Saline 0.9) flush 5-20 mL 5-20 mL, Intravenous, EVERY 1 MIN PRN, Starting on Alison 04/13/22 at 1240, Until Alison 622 at 1904, flush, Flush pertains to all indwelling lines. Flush per protocol found in the job aid using the link provided on this medication record., Routine Linked Groups Order Group 1: HYDROmorphone (Dilaudid) tablet 2 mgJump to med 2 mg, Oral, EVERY 3 HOURS PRN, Starting on Alison 6 at 1240, Until Alison 622 at 1904, Pain, Give 2 mg for mild to moderate pain (1-6)/10. Use oral option for pain relief first. If patient is unable to take orally, use IV option for pain relief, if ordered., Routine Or HYDROmorphone (Dilaudid) tablet 4 mgJump to med 4 mg, Oral, EVERY 3 HOURS PRN, Starting on Alison 6/ at 1240, Until Alison 6/ at 1904, Pain, Give 4 mg for severe pain (7-10)/10. Use oral option for pain relief first. If patient is unable to take orally, use IV option for pain relief, if ordered., Routine Or HYDROmorphone (Dilaudid) (1 mg/mL) injection syringe 0.2 mgJump to med 0.2 mg, Intravenous, EVERY 3 HOURS PRN, Starting on Alison 6/ at 1240, Until Alison 6 at 1904, Pain, Give 0.2 mg for mild to moderate pain (1-6)/10. Use oral option for pain relief first if ordered. If patient is unable to take orally, use IV option for pain relief, Routine Or HYDROmorphone (Dilaudid) (1 mg/mL) injection syringe 0.4 mgJump to med 0.4 mg, Intravenous, EVERY 3 HOURS PRN, Starting on Alison 6 at 1240, Until Alison 6 at 1904, Pain, Give 0.4 mg for severe pain (7-10)/10. Use oral option for pain relief first if ordered. If patient is unable to take orally, use IV option for pain relief., Routine Group 2: ondansetron (Zofran) tablet 4 mgJump to med 4 mg, Oral, EVERY 8 HOURS PRN, Starting on Alison 6/ at 1240, Until Alison 6/ at 1904, Nausea, Vomiting, If multiple antiemetics are ordered, use ondansetron first. PO Preferred. If patient unable to take PO, may give IV if ordered. May repeat times one in 45 minutes if ineffective., Routine Or ondansetron (pf) (Zofran) (2 mg/mL) injection 4 mgJump to med 4 mg, Intravenous, EVERY 8 HOURS PRN, Starting on Alison 04/13/22 at 1240, Until Alison 04/13/22 at 1904, Nausea, Vomiting, May repeat times one in 30 minutes if ineffective. If multiple antiemetics are ordered, use ondansetron first, Routine documented in this encounter Care Teams Compressor Assembler Relationship Specialty Start Date End Date Adelita Charles MD [address] [place] [id number] PCP - General 05/07/12 documented as of this encounter
--- OUTSIDE RECORDS SUMMARY | 2024-05-28 20:03 | XMS_ITS | Encounter Summary ---
Author Organization [facility]ly [facility] Address 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 Name Role Phone Adelita Charles MD Primary Care Provider [phone] Reason for Visit * Auth/Cert Specialty Diagnoses / Procedures Referred By Pilar ho Referred To Contact Diagnoses OA Procedures PRO TOTAL HIP ARTHROPLASTY TOTAL HIP ARTHROPLASTY, ANTERIOR APPROACH (WRVU 20.72) MODIFIER PEREA & NEPHEW - POLAR STEM CEMENTLESS MODIFIER PEREA & NEPHEW - R3 ACETABULAR CUP Bret Peterson MD [address] [place] [address] [facility] Referral ID Status Reason Start Date Expiration Date Visits Re quested Visits Authorized [id number] 1 1 Encounter Details Date Type Department Care Team (Late st Contact Info) Description 04/13/2022 9:38 AM EDT - 04/13/2022 11:46 AM EDT Surgery Operating Room [facility] [address] [place] [id number] Bret Peterson MD [address] [place] [address] TOTAL HIP ARTHROPLASTY, ANTERIOR APPROACH (WRVU 19.6) Social History Tobacco Use Types Packs/Day Years [...] Sign Reading Time Taken Comments Blood Pressure 157/74 04/13/2022 11:46 AM EDT Pulse 54 04/13/2022 11:46 AM EDT Temperature 36.1 ??C (97 ??F) 04/13/2022 11:35 AM EDT Respiratory Rate 18 04/13/2022 11:46 AM EDT Oxygen Saturation 96% 04/13/2022 11:46 AM EDT Inhaled Oxygen Concentration - - Weight 104.3 kg (230 lb) 04/13/2022 8:18 AM EDT Height 177.8 cm (5' 10) 04/13/2022 8:18 AM EDT Body Mass Index 33 04/13/2022 8:18 AM EDT documented in this encounter Discharge Summaries * Jeannette Echols PA - 04/13/2022 12:06 PM EDT [facility] Discharge Summary Admit date: 04/13/2022 Expected D/C [...] 0 HORIZON NASAL CPAP SYSTEM MISC by [facility]Non-Drug; Combo Route) route nightly. Refills: 0 hydrOXYzine [...] the exercises you were taught while at [facility] by the PT and OT staff, includingrange [...] you leave the hospital and remember to curing pickling packer all prescriptions at the pharmacy. DVT PROPHYLAXIS: [...] Jeannette Echols PA Orthopaedics at Arrive at: [facility] Level 07/07/2022 2:30 PM Jeannette Echols PA Orthopaedics at Arrive at: [facility] Level Future Orders Complete By Expires Referral to Home Health [REF34 Custom] As directed Process Instructions: If no progress note charted, please enter Clinical details in comments. Scheduling Instructions: Comments: Please evaluate Kaushik Clemons for admission to Home [facility]. [address] [place] [phone] (home) [phone] (mobile) Date of : 1960 Outpatient Person [...] after 4 weeks.?? HOME HEALTH CARE AGENCY: [facility] In discussion with [...] Adelita Charles MD [address] / [facility] [address] All VNA agencies which cover the area [...] this inpatient hospitalization, please call the [facility] Orthopedic Office at [phone]. 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 DVT PROPHYLAXIS: [...] 09/19/2021 OneTouch Delica Plus Lancet 33 gauge Misc 09/19/2021 amLODIPine-benazepriL (LOTREL) 10-20 mg Capsule Take [...] systems (HORIZON NASAL CPAP SYSTEM MISC) by [facility]Non-Drug; Combo Route) route nightly. aspirin EC 81 [...] encounter Miscellaneous Notes * Care Management - Nisha Malin - 04/13/2022 5:04 PM EDT The VNA referral was faxed to the patient's preferred agency, [facility] ([phone]). * Initial Assessments - Marcelle Enamorado PT - 04/13/2022 4:22 PM EDT Physical Therapy Orthopaedic Initial Evaluation Note Diagnosis: S/P L ANT TIFFANIE Rehab Potential: Good; pt cleared to DC home once medically stable Orders through: 04/13/22 [...] 3.47) performed by Mychal Chapa MD at [facility] MAIN OR ??? PRO LAMINEC/FACETECT/FORAMIN, LUMBAR 1 SEG Bilateral 05/05/2020 LAMINECTOMY, FACETECTOMY & FORAMINOTOMY,LUMBAR, ONE LEVEL (WRVU 15.37) performed by Mychal Chapa MD at [facility] MAIN OR ??? 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 [...] 3.47) performed by Mychal Chapa MD at [facility] MAIN OR ??? PRO LAMINEC/FACETECT/FORAMIN, LUMBAR 1 SEG Bilateral 05/05/2020 LAMINECTOMY, FACETECTOMY & FORAMINOTOMY,LUMBAR, ONE LEVEL (WRVU 15.37) performed by Mychal Chapa MD at [facility] MAIN OR ??? 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 CM introduced self and role of Case Management [...] Clemons would be surrogate decision maker [place] decision making law. (Only good for 180 days) Any patient receiving care at [facility] must abide by [place] law. The hierarchy for surrogate decision making [...] (i) The agent with financial power of public address servicer or a conservator appointed in accordance with RSA 464-A. (j) The guardian of the patient???s estate. Functional status prior to admission: Independent Current functional status: Assistive Equipment, Assistive Person Home environment: Others in the home: spouse. Current Living Arrangements: home/apartment/condo. Accessibility Concerns:no concerns. Community Resources being provided currently: none Behavioral Health History: no mention of depression, anxiety, or othe rmental health concerns Substance Use/Abuse confirmed: Social History [...] likely Primary Care Provider: Adelita Charles MD [phone] Pharmacy: [facility] [place], [place] [address] [place] [address] [facility] [place], [place] - [address] [facility] [address] Health Coverage: Primary Insurance: CIGNA Secondary Insurance: N/A Other: Prescription Coverage: Yes [place] Status: Patient is a : No Anticipated [...] preferred geographic area. ?? provided patient with [facility] Star Quality Rating handout. They have requested referrals to: [facility] For PT/OT Note routed to a Supervisor Dumping who will communicate referrals to facilities and [...] number to reach you post discharge is [phone] A member of the Case Management team will continue to monitor progress and collaborate with the interdisciplinary team to create a safe discharge plan. See [facility] guidelines for further clinical documentation during patient???s hospital stay. Annabelle Zhang RN Office of Care Management * Op Note - Bret Peterson MD - 04/13/2022 10:26 AM EDT [facility] Operative Note [facility] [address] [place] [address] Patient Name: Kaushik Clemons : [id number] MR#: [id number] Case Date: 04/13/2022 Surgery Start Time: 1025 Surgery Stop Time: 1128 Date: April 13, 2022 Surgeon: Bret Peterson MD Patient Sitter: MERON No Maxillofacial Pathology: Lex Ward CRNA Anesthesia: Spinal and sedation Pre-operative diagnosis: Left hip osteoarthritis, severe Body mass index is 33 kg/m??. Post-operative diagnosis: Same Surgical Procedure Performed: Injection left hip with marcaine 0.25% with epi, 4 mg morphine, ketorolac 15 mg, clonidine 50 mcg and Solu-Medrol (40 mg) into subcutaneous and deep tissues, and joint space. Left total hip arthroplasty, anterior Hueter approach with [place] table Left hip intraoperative radiologic examination Findings: [...] performed. Patient was positioned supine on the [place] table, both feet and ankles were padded [...] liner was placed and impacted according to revenue stamper's instructions.Any impinging osteophytes were removed. Attention then [...] and laterally. At the same time, the nursing home assistant administrator leaned against the thigh to optimize femoral [...] back to the hospital bed from the [place] table and boots were removed. No abduction pillow was placed. The patient returned to the recovery room in stable c ondition. The surgical instrument maker, MERON No, worked under my direction for the duration of the operative session. The nursing home assistant administrator meticulously prepped the operative site and maintained the best possible exposure of anatomy for the procedure for its duration. Implant Information: Implant Name Type Inv. Item Serial No. Cocoa Bean Roaster Helper Lot No. LRB No. Used Action SHELL ACET HIP 52MM POR SOLID TI R3 ([id number]) (AutoReq) - [id number] IMPLANTS SHELL ACET HIP 52MM POR SOLID TI R3 ([id number]) (AutoReq) PEREA & NEPHEW - PEREA NEPH [id number] Left 1 Implanted LINER ACET HIP [id number] 0D POLY R3 ([id number]) (AutoReq) - [id number] IMPLANTS LINER ACET HIP [id number] 0D POLY R3 ([id number]) (AutoReq) PEREA & NEPHEW - PEREA NEPH [id number] Left 1 Implanted STEM FEMORAL HIP SZ 2 PROX 135D POR CLLR STND OFST TI ([id number]) (AutoReq) - [id number] IMPLANTS STEM FEMORAL HIP SZ 2 PROX 135D POR CLLR STND OFST TI ([id number]) (AutoReq) PEREA [employer] NEPHEW - PEREA NEPH [id number] Left 1 Implanted HEAD FEMORAL HIP 36MM +0MM OFFSET 12/14 TPR ZIRCNM OXINIUM ([id number]) (AutoReq) - [id number] IMPLANTS HEAD FEMORAL HIP 36MM +0MM OFFSET 12/14 TPR ZIRCNM OXINIUM ([id number]) (AutoReq) PEREA & NEPHEW - PEREA NEPH [id number] Left 1 Implanted TG 1 RG 0 [...] left hip Arthroplasty Acetabular/Prox Fem Prostc Agrft/Algrft ([id number]) 04/13/2022 9:56 AM EDT Primary osteoarthritis of [...] POINT OF CARE TEST O RDERABLES [facility] [address] [place] [address] documented in this encounter Visit Diagnoses Diagnosis Status post total replacement of left hip Primary osteoarthritis of left hip Primary localized osteoarthrosis, pelvic region and thigh documented in this encounter Admitting Diagnoses Diagnosis [...] Discontinued, Routine Given 04/13/2022 12:56 PM EDT 300 mg amLODIPine (Norvasc) tablet 10 mg 10 mg, Oral, NIGHTLY, First dose on Alison 04/13/22 at 2100, Until Discontinued, Routine atenoloL (Tenormin) tablet 50 mg 50 mg, Oral, NIGHTLY, First dose on Alison 04/13/22 at 2100, Until Discontinued, Routine BUpivacaine (pf) (Marcaine) (2.5 mg/mL) 0.25% injection ONCE PRN, Starting on Alison 04/13/22 at 1032, Until Alison 04/13/22 at 1236, Intra-Operative (Intra-Procedure), Routine Given 04/13/2022 10:32 AM EDT 10 mLs 19- Surgical Site chlorthalidone (Hygroten) tablet 25 mg 25 mg, [...] Alison 04/13/22 at 2100, Until Discontinued, Routine methylPREDNISolone acetate (DEPO-Medrol) (40 mg/mL) injection ONCE PRN, Starting on Alison 04/13/22 at 1033, Until Alison 04/13/22 at 1236, Intra-Operative (Intra-Procedure), Routine Given 04/13/2022 10:33 AM EDT 40 mg 19- Surgical Site morphine 4 mg/mL multi-dose carpuject ONCE PRN, Starting on Alison 04/13/22 at 1034, Until Alison 04/13/22 at 1236, Intra-Operative (Intra-Procedure), Routine Given 04/13/2022 10:34 AM EDT 4 mg 19- Surgical Site ondansetron (pf) (Zofran) (2 mg/mL) injection 4 [...] Given 04/13/2022 12:56 PM EDT 40 mg ROpivacaine-EPINEPHrine- cloNIDine-ketorolac (RHODA) (2.46 mg-0.005 mg-0.0008 mg-0.3 mg/mL) niels-articular inj soln in sodium chloride ONCE PRN, Starting on Alison 04/13/22 at 1034, Until Alison 04/13/22 at 1236, Intra-Operative (Intra-Procedure), Routine Given 04/13/2022 10:34 AM EDT 50 mLs 19- Surgical Site sodium chloride 0.9 % (flush) (BD PosiFlush [...] 1256 (Given - Provid er: Jennifer Richardson RN)1648 [...] Alison 04/13/22 at 2100, Until Discontinued, Routine sodium chloride 0.9 % (flush) (BD PosiFlush Normal Saline 0.9) flush 3 mL 3 mL, Intravenous, EVERY 12 HOURS SCHEDULED (2 times per day), First dose on Alison 04/13/22 at 1330, Until Discontinued, Routine 1257 (Given [...] EVERY 8 HOURS PRN, Starting on Alison 6/22 at 1240, Until Alison 6/22 at 1904, Itching, Routine HYDROmorphone (Dilaudid) (1 mg/mL) injection syringe 0.2 mg(Linked Group 1) 0.2 mg, Intravenous, EVERY 3 HOURS PRN, Starting on Alison 6/22 at 1240, Until Alison 6/22 at 1904, Pain, Give 0.2 mg for [...] EVERY 3 HOURS PRN, Starting on Alison 6/22 at 1240, Until Alison 6/ at 1904, Pain, Give 0.4 mg for [...] EVERY 3 HOURS PRN, Starting on Alison 6/22 at 1240, Until Alison 6/22 at 1904, Pain, Give 2 mg for [...] Until Alison 6 at 1904, Pain, Give 4 mg for [...] at 1240, Until Alison 04/13/22 at 1904, Anxiety, If medication ordered subcutaneously, do not administer more than 2 mL as a single injection., Routine magnesium hydroxide (Milk of Magnesia) (240 mg/mL) oral liquid 10 mL 10 mL, Oral, ONCE PRN, 1 dose, Starting on Alison 04/13/22 at 1240, Until Ailson 04/13/22 at 1904, Constipation, Administer if needed per patient's routine or if no bowel movement within 72 hours. If multiple PRN bowel medications ordered, start with Miralax, then bisacodyL, then Milk of Magnesia., Routine methylPREDNISolone acetate (DEPO-Medrol) (40 mg/mL) injection (CANCELED) ONCE PRN, Starting on Alison 04/13/22 at 1033, Until Alison 04/13/22 at 1236, Intra-Operative (Intra-Procedure), Routine 1033 (Given [...] EVERY 8 HOURS PRN, Starting on Alison 6/22 at 1240, Until Alison 6/22 at 1904, Nausea, Vomiting, May repeat times one in 30 minutes if ineffective. If multiple antiemetics are ordered, use ondansetron first, Routine 1413 (Given - Provid er: Jennifer Richardson RN) ondansetron (Zofran) tablet 4 mg(Linked Group 2) 4 mg, Oral, EVERY 8 HOURS PRN, Starting on Alison 6/22 at 1240, Until Alison 6/ at 1904, [...] on Alison 04/13/22 at 1240, Until Alison 6/22 at 1904, Constipation, Start Post OP day 1 if no BM , Routine XAgogdtmqre-UJQUBFIpcjw-gnmUEKlno -ketorolac (RHODA) (2.46 mg-0.005 mg-0.0008 mg-0.3 mg/mL) niels-articular inj soln in sodium chloride (CANCELED) ONCE PRN, Starting on Alison 6/22 at 1034, Until Alison 6/22 at 1236, Intra-Operative (Intra-Procedure), Routine 1034 (Given - Provid er: Bret Peterson MD - Comment: LEFT HIP INJECTION MIXED WITH: DEPOMEDROL 40MG MORPHINE 4MG) sodium chloride 0.9 % (flush) (BD PosiFlush Normal Saline 0.9) flush 5-20 mL 5-20 mL, Intravenous, EVERY 1 MIN PRN, Starting on Alison 6 at 1240, Until Alison 6 at 1904, flush, Flush pertains to all indwelling lines. Flush per protocol found in the job aid using the link provided on this medication record., Routine Linked Groups Order Group 1: HYDROmorphone (Dilaudid) tablet 2 mgJump to med 2 mg, Oral, EVERY 3 HOURS PRN, Starting on Alison 6 at 1240, Until Alison 6 at 1904, Pain, Give 2 mg for mild to moderate pain (1-6)/10. Use oral option for pain relief first. If patient is unable to take orally, use IV option for pain relief, if ordered., Routine Or HYDROmorphone (Dilaudid) tablet 4 mgJump to med 4 mg, Oral, EVERY 3 HOURS PRN, Starting on Alison 04/13/22 at 1240, Until Alison 6 at 1904, Pain, Give 4 mg for [...] on Alison 6/ at 1240, Until Alison 6/22 at 1904, Pain, Give 0.4 mg for [...] Routine documented in this encounter Care Teams Metal Casket Maker Relationship Specialty Start Date End Date Adelita Charles MD [address] [place] [address] PCP - General 05/07/12 documented as of this encounter
--- OUTSIDE RECORDS SUMMARY | 2024-05-28 20:03 | XMS_ITS | Encounter Summary ---
Author Organization [facility] Address [facility] [place] [address] Care Team Providers Care Bus Aide Name Role Phone Adelita Charles MD Primary Care Provider Reason for Visit * Reason Comments Left Hip Pain * Consultation (Emergency) - Closed Specialty Diagnoses / Procedures Referred By Contac t Referred To Contact Orthopaedics Diagnoses Low back pain, non-specific Vitaletti-Juliet Copeland MD [address] [address] Bret Peterson MD [address] [facility] [place] [address] Referral ID Status Reason Start Date Expiration Date V isits Requested Visits Authorized [id number] Closed Consult, Test & Treat 02/15/2022 02/15/2023 1 1 Encounter Details Date Type Department Care Team (Latest Contact Info) Description 03/01/2022 1:30 PM EDT Office Visit Orthopaedics at [facility] [address] [place] [id number] Bret Peterson MD [address] [facility] ORTHOPAEDIC SURGERY [place], [place] [id number] Primary osteoarthritis of left hip (Primary Dx) [...] Sign Reading Time Taken Comments Blood Pressure - - Pulse - - Temperature - - Respiratory Rate - - Oxygen Saturation - - Inhaled Oxygen Concentration - - Weight 104.3 kg (230 lb) 03/01/2022 1:12 PM EDT Height 177.8 cm (5' 10) 03/01/2022 1:12 PM EDT Body Mass Index 33 03/01/2022 1:12 PM EDT documented in this encounter Progress Notes * Bret Peterson MD - 03/01/2022 1:30 PM EDT Chief Complaint: Chief Complaint Patient presents with ??? Left Hip Pain PCP: Adelita Charles MD This patient presents to clinic for orthopedic consultation at the request of Juliet Westbrook MD MICHAEL [address] [place] [address] for evaluation of hip pain HPI: Kaushik Clemons is a 62 y.o. year old male being seen today to discuss pain of the anterior and lateral aspect of the left hip(S) including the groin and thigh . He states the hip issue began 1 year ago. The patient reports the hip complaint occurred gradually with no history of injury. He reports getting up from a chair, laying on it at night and prolonged walking aggravate his hip complaint. He also reports decreased walking tolerance , night pain and stiffness in association to his hip complaint. He does not endorse a history of DVT/PE or clotting disorder. The patient has tried the following treatments: Supportive: Ice/Heat: yes with no improvement Rest/Elevation:yes with no improvement Medications: Tylenol with no improvement. Physical Therapy : yes at [facility] with no improvement. Joint Injections: no Imaging: left hip X-ray series were [facility] The imaging was available and reviewed in clinic with the patient. The findings are documented in the physical exam below. Review of Systems: Constitutional: Denies fever, chills, fatigue Cardiovascular: Denies chest pain Respiratory: Denies shortness of breath Gastrointestinal: Denies nausea, vomiting, diarrhea, constipation or abdominal pain Neurovascular: Denies numbness or tingling Musculoskeletal: Admits left hip pain Psychiatric: Mood and affect appropriate STOP-BANG Questionnaire BMI: BMI Readings from Last 1 Encounters: 03/01/22 33.00 kg/m?? Age: 62 y.o. Sex: male STOP 1. Do you snore loudly (louder than talking or loud enough to hear through closed doors?) No 2. Do you often feel tired, fatigued, or sleepy during the daytime? No 3. Has anyone observed you stop breathing during your sleep? No 4. Do you have, or have you ever, been treated for high blood pressure? Yes BANG 1. Is BMI more than 35? No 2. Age over 50? Yes 3. Is neck circumference greater than 16 inches (40 cm)? No 4. Is gender male? Yes Total Score: 3 High Risk of IVETTE: YES 5-8 Intermediate Risk of IVETTE: YES 3-4 Low Risk of IVETTE: YES 0-2 PHYSICAL EXAM: Ht 177.8 cm (5' 10) Wt 104.3 kg (230 lb) BMI 33.00 kg/m?? Constitutional: alert, in no acute distress, well-developed, well-nourished, well-groomed, body habitus normal Head/Face: Atraumatic, normocephalic General: alert and oriented. He appears in no acute discomfort and is resting comfortably in a chair in the exam room. Lumbar/Pelvis: Full ROM of lumbar spine in all planes, no point tenderness, no SI joint tenderness Gait/Station: Antalgic and [place] Gait, Station normal . Right lower extremity : Hip: Inspection/Palpation: no tenderness to palpation, no greater trochanteric tenderness, no effusion, no warmth, no swelling Range of Motion: FF 0- 95 degrees, ER 30 degrees, IR 10 degrees, ABD 30 degrees Strength: strength 5/5 Stability: no joint instability Test/Signs Thigh: no tenderness, no ecchymosis, no swelling, minimal effusion Knee : Full ROM with no tenderness to palpation Lower leg: No tenderness to palpation, no swelling, no ecchymosis Left lower extremity : Hip: Inspection/Palpation: no tenderness to palpation, no greater trochanteric tenderness, no effusion, no warmth, no swelling Range of Motion: FF 0- 80 degrees, ER 25 degrees, IR -10 degrees, ABD 20 degrees Strength: strength 5/5 Stability: no joint instability Test/Signs Thigh: no tenderness, no ecchymosis, no swelling Knee : Full ROM with no tenderness to palpation Lower leg: No tenderness to palpation, no swelling, no ecchymosis Muscle tone: tone normal Leg Length Discrepancy: Yes left side short by 3 mm Skin: no erythema present, no ecchymosis present, no signs of skin lesions or infection Sensation: :sensation to light touch intact in lower extremities, neurovascularly intact Mental status Examination: grossly oriented to person, place and time Mood and Affect: mood normal, affect appropriate Impression/Plan: Kaushik Clemons is a 62-year-old male who is seeing me in the clinic today for the first time, accompanied by his . His principal complaint is left hip pain, it started in the groin and now also hurts in the upper thigh, sometimes laterally around the trochanter. 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 In his spare time he and his enjoy dancing, including polka. He used to ski but had to stop because of his back. He has lumbar spondylosis, in [address] surgery with [address] Chapa at [facility], laminectomy and decompression. He is generally healthy otherwise, he is a diabetic and thinks his last hemoglobin A1c was around 6. He denies cardiovascular or lung disease, does not think he has sleep apnea, does not smoke, does not drink alcohol. He hasno DVT history, has not been hospitalized very much apart from his spine surgery and the rotator cuff operation on the left side. He tells me that the hip is now limiting his ability to work, he has discomfort nearly all the time, his tells me it is much more painful for him when they try to go dance. He is at a point where he wants to talk about hip replacement. His radiographs show left hip OA grade 4, severe arthritis which is [id number], with loss of joint space and osteophytes both acetabular and femoral. Right hip shows grade 2 arthritic changes. His spine films show facet joint OA at several levels in the lower lumbar spine, he recently had some facet blocks which she tells me really did not help at all. He wonders if his back will feel better after the surgery, I told him there are structural reasons for his low back pain but that often patients with lumbar disc disease do get some degree of improvement in their spine symptoms after hip replacement due to normalization of gait. However I told him this was somewhat unpredictable and uncertain. We discussed at some length the accepted nonoperative treatment options for hip OA, including activity modification, attainment of ideal body weight, reduction of inflammation either through oral anti-inflammatory agents, topicals, or intra-articular cortisone injection. We also talked about the role of physical therapy to strengthen muscle groups that control lower extremity muscle groups. Thereare also emerging technologies including protein rich plasma and stem cell therapy which to date show limited and inconsistent results with intra-articular injection, and are not covered by most insurance payers. Total hip arthroplasty via a direct anterior surgical approach was discussed. With regards to implants, the femoral stem and acetabular component are made of a titanium-aluminum alloy, the new bearing will be using a polyethylene liner, and a ceramic femoral head to avoid the potential fretting problems with cobalt- chrome. The risks of surgery include the risk of infection, blood clot, fracture, dislocation, leg length inequality, wound healing problems, reoperation, and the risk of anesthesia to the cardiovascular systems. The anesthesia is usually a spinal, the hospitalization is same-day or one night in hospital, the pain management strategy is multimodal to limit narcotic use. A spinal anesthetic is used preferentially due to increased safety compared to general anesthesia. We will use DVT prophylaxis which we will discuss again at a later time (to determine the appropriate medication) We talked about the postoperative course, the hospitalization would likely be sameday or one night,patients typically use a walker for 1-2 weeks after surgery and then switch to a cane for 2-3 weeks. We talked about the fact the bony ingrowth into the hip implants takes about 12-14 weeks to occur,and that no aggressive sports or lifting should be done until then. In terms of pain and function scores from standardized surveys, it appears that the recovery for single total hip replacement is likely just about finished by 12 months, but I also pointed out that most patients improve in terms ofthe range of motion, strength, endurance, and agility for up to 2 years after surgery. In terms of a llowable activities after joint replacement, most sports are permissible after 3 months. Running matheus hip replacement is allowed by some surgeons, but considered controversial and undesirable by others. Moderate impact activity is likely not problematic and there is no evidence that it will reduce the useful life of the implant which is likely somewhere between 25 and 30 years according to acceler ated aging simulation by the employment assistant. At this point he would like to go ahead with left total hip arthroplasty. We talked about benefits and risks. We talked about recovery. He has some anxiety about a spinal anesthetic but he seemed to be more receptive when I told him that we give Versed to sedate patients before the anesthetic is instilled. We talked about same-day versus staying overnight, they are undecided and they will talk some more about this in the coming days. Given his very physical job, I told him it may well be 3 months before he can go back to work. I told him about the weight restrictions, maximal lifting of 10 pounds the first month, 20 pounds a second month, 30 pounds in the third month. Given that he often lifts up to 50 pounds, I do not think jammie go back to work until 3 months after surgery. I Alie Godinez am acting as scribe for Bret Peterson MD. All work documented was performed by Bret Peterson MD. I, Bret Peterson MD personally performed the services described in this documentation, as scribed by Alie Godinez is both accurate and complete. documented in this encounter Plan of Treatment Scheduled Orders Name Type Priority Associated Diagnoses Orde r Schedule SURGICAL CASE REQUEST: TOTAL HIP ARTHROPLASTY, ANTERIOR APPROACH (WRVU 20.72) Procedures Routine Primary osteoarthritis of left hip One Time for 1 Occurrences starting 03/07/2022 until 03/07/2022 documented as of this encounter Visit Diagnoses Diagnosis Primary osteoarthritis of left hip- Primary Primary localized osteoarthrosis, pelvic region and thigh documented in this encounter Care Teams Bus Aide Relationship Specialty Start Date End Date Adelita Charles MD [address] [place] [address] PCP - General 05/07/12 documented as of this encounter
--- OUTSIDE RECORDS SUMMARY | 2024-05-28 20:03 | XMS_ITS | Encounter Summary ---
Author Organization [facility] [place] [id number] Care Team Providers Care Fuse Coiler Name Role Phone Adelita Charles MD Primary Care Provider Reason for Referral * Physical Therapy (Routine) - Specialty Diagnoses / Procedures Referred By Contac t Referred To Contact Diagnoses S/P lumbar laminectomy Mychal Chapa MD [facility] [address] Referral ID Status Reason Start Date Expiration Date V isits Requested Visits Authorized [id number] Evaluate and Treat 06/07/2020 12/04/2020 1 1 Reason for Visit * Reason Comments Follow-up Encounter Details Date Type Department Care Team (Late st Contact Info) Description 06/07/2020 1:20 PM EDT Office Visit [facility] at [place] [phone] Mychal Chapa MD [facility] [address] s/p L3-4 laminectomy 05/05/[address] Chapa Social History Tobacco Use Types Packs/Day Years [...] - Inhaled Oxygen Concentration - - Weight 105.2 kg (232 lb) 06/02/2020 11:38 AM EDT Height 180.3 cm (5' 11) 06/02/2020 11:38 AM EDT Body Mass Index 32.36 06/02/2020 11:38 AM EDT documented in this encounter Progress Notes * Antonia Dwyer LNA - 06/07/2020 1:20 PM EDT Confirmed with pt that a detailed line by line medication and allergy review was performed by Alie Mauricio as documented on 06/02/20 as part of the telephone Intake process. Confirmed with pt that there have been no medication/allergy additions or changes over the previous 5 days. * Mychal Chapa MD - 06/07/2020 1:20 PM EDT Date of surgery: 05/05/2028 Surgery: L3-L4 laminectomy Interval history: Mr. Clemons returns today about 1 month out from surgery. He is doing well. He notes occasional, mild low back pain and reports that the lower extremity pain is resolved. He is not taking any pain medication. He is walking much more comfortably than before surgery. 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 He denies any fevers, chills or recent drainage from the incision. Physical exam General: Patient is comfortable, no acute distress Back: He has a well-healed midline incision. There is no drainage or surrounding erythema. Neurological exam: He has 5/5 strength of all lower extremity motors. He has a normal sensory exam. Imaging: AP and lateral x-rays of the lumbar spine from 06/07/2020 were reviewed. These demonstrate no change in alignment of the spine. The laminectomy at L3-L4 is evident. There are no signs of instability. Assessment/plan: Mr. Clemons is 1 month out from his lumbar laminectomy, and he is doing quite well. His lower extremity symptoms are resolved. I told him that he could gradually advance his activitiesas tolerated. I gave him a referral to physical therapy. He is not sure if he wants to get back to the job at the tire business that requires heavy lifting. I told him to work with the physical therapist to determine his work capacity. If he needs any documentation about return to work, he will call us. I will follow-up with him on an as-needed basis. documented in this encounter Plan of Treatment Scheduled Referrals Name Type Priority Associated Diagnoses Orde r Schedule Referral to Physical Therapy Outpatient Referral Routine s/p L3-4 laminectomy 05/05/[address] Chapa Ordered: 06/07/2020 documented as of this encounter Visit Diagnoses Diagnosis s/p L3-4 laminectomy 05/05/[address] Chapa Other postprocedural status documented in this encounter Care Teams Fuse Coiler Relationship Specialty Start Date End Date Adelita Charles MD [address] [address] PCP - General 05/07/12 documented as of this encounter
--- OUTSIDE RECORDS SUMMARY | 2024-05-28 20:03 | XMS_ITS | Encounter Summary ---
Author Organization [facility] Address [facility] [place] [address] Care Team Providers Care Salesperson Sewing Machines Name Role Phone Adelita Charles MD Primary Care Provider [phone] Encounter Details Date Type Department Care Team (Late st Contact Info) Description 11/03/2021 Telephone Pain and Sp[facility] Center at [facility] [place] [phone] Gianluca Payne RN Social History Tobacco Use Types Packs/Day [...] encounter Miscellaneous Notes * Telephone Encounter - Gianluca Payne RN - 11/04/2021 11:55 AM EST Received call from patient, he is s/p 05/05/2020 L3-L4 laminectomy. He reports that his symptoms began to return about 2 months following surgery and have progressively worsened. He reports low back and bilateral buttock pain. He has not had any updated xrays or images. He is awaiting an appointmentwith a sports medicine provider for left groin pain. Above discussed with Dr. Chapa, he recommends referral to Pain for comprehensive pain evaluation. Patient was informed of plan, he will be contacted by schedulers to book an appointment. documented in this encounter Plan of Treatment Not on file documented as of this encounter Visit Diagnoses Not on filedocumented in this encounter Care Teams Salesperson Sewing Machines Relationship Specialty Start Date End Date Adelita Charles MD [address] [place] [address] PCP - General 05/07/12 documented as of this encounter
--- OUTSIDE RECORDS SUMMARY | 2024-05-28 20:03 | XMS_ITS | Encounter Summary ---
Author Organization [facility] Address [facility] [place] [address] Care Team Providers Care Appraiser Timber Name Role Phone Adelita Charles MD Primary Care Provider [phone] Reason for Visit * Auth/Cert Specialty Diagnoses / Procedures Referred By Pilar ho Referred To Contact Diagnoses Spinal stenosis Procedures PRO LAMINEC/FACETECT/FORAMIN, LUMBAR 1 SEG PRO LAMINEC/FACETECT/FORAMIN, EACH ADDNL LAMINECTOMY, FACETECTOMY & FORAMINOTOMY,LUMBAR, ONE LEVEL (WRVU 15.37) ADD'L INTERSPACES CX., THORACIC, LUMBAR (WRVU 3.47) MODIFIER L3 MODIFIER L4 Referral ID Status Reason Start Date Expiration Date Visits Re quested Visits Authorized [id number] 1 1 Encounter Details Date Type Department Care Team (Latest Contact Info) Description 05/05/2020 5:49 AM EDT - 05/05/2020 3:16 PM EDT Hospital Encounter [place] [address] Mychal Lopez MD [facility] [address] Spinal stenosis of lumbar region with neurogenic [...] Sign Reading Time Taken Comments Blood Pressure 137/80 05/05/2020 2:30 PM EDT Pulse 90 05/05/2020 12:35 PM EDT Temperature 37 ??C (98.6 ??F) 05/05/2020 12:35 PM EDT Respiratory Rate 16 05/05/2020 2:30 PM EDT Oxygen Saturation 94% 05/05/2020 2:30 PM EDT Inhaled Oxygen Concentration - - [...] them. 3. You should also take an aajr-jjt-wxpdlad stool softener of laxative, such as Meche-colace [...] contact the Spine Center Nursing staff at [phone]. Nursing staff will need to talk with [...] ordered), or by a nurse at the [facility] Spine Center. Please call the Spine Center [...] has completely healed. PLEASE CALL US AT [phone] TO SPEAK WITH A SPINE CENTER NURSE [...] Numbers: Clinical issues, nurse questions, medication renewals: [phone] (Mon-Fri 8am-5pm, excluding holidays) Appointments for Dr. Lopez: [phone] Evenings after 5pm and weekends you may contact the Orthopaedic resident transplant surgeon: [phone], askthe chief catalyst operator to page the Orthopaedic resident Follow Up Appointments: 1. You will have follow-up appointments at [facility] as indicated in the ???Future Appointments and Orders?? section of your discharge summary. If X-rays have been ordered for you prior to this appointment you will need to report to the Radiology department, desk , 1 hour prior to your spine center appointment. 2. If you do not have a scheduled follow-up appointment listed at the time of discharge, you will be notified of your scheduled appointment on the next business day. Please call [phone] if you do not hear from us by that time, as your timely follow-up is very important to us. Future Appointments Date Time Provider Department Center 06/07/2020 1:20 PM Mychal Lopez MD [facility] Pain [facility] 06/07/2020 2:00 PM Treasure Avendano, RANDY [facility] Pain [facility] documented in this encounter Medications at Time [...] systems (HORIZON NASAL CPAP SYSTEM MISC) by [facility].(Non-Drug; Combo Route) route nightly. oxyCODONE (Roxicodone) 5 [...] documented in this encounter H&P Notes * Myhcal Lopez MD - 05/05/2020 7:55 AM EDT [...] claudication Kenny Abarca MD Orthopaedic Surgery Pager [phone] Spine Attending I have seen and examined the patient and agree with the resident's findings and plan. Pt cont to have LBP radiating to BLE. Will proceed with L3-L4 laminectomy. documented in this encounter Miscellaneous Notes * Op Note - Mychal Lopez MD - 05/05/2020 12:28 PM EDT [facility] Operative Note Patient Name: Kaushik Clemons : [id number] MR#: [id number] Case Date: 05/05/2020 Surgeon: Surgeon(s) and Role: [...] to the level of the pars. A [place] was placed caudal to the L3 lamina, [...] Operative Note Patient Name: Kaushik Clemons : [id number] MR#: [id number] Case Date: 05/05/2020 Surgeon: Surgeon(s) and Role: * Mychal Lopez MD - Primary * Kenny Abarca MD - Resident Preoperative diagnosis: Spinal stenosis Postoperative diagnosis: Spinal stenosis Procedure: L3-L4 laminectomy (36488, 44108) Anesthesia: General Findings: There was moderate-severe central [...] Facetectomy&Foramot 1 Vrt Sgm Ea Addl Sgm ([id number]) 05/05/2020 10:15 AM EDT Spinal stenosis of lumbar region with neurogenic claudication Laminec/Facetect/For kramer, Lumbar 1 Seg ([id number]) 05/05/2020 10:15 AM EDT Spinal stenosis of lumbar region with neurogenic claudication POCT GLUCOSE Routine 05/05/2020 6:17 AM EDT ADD'L INTERSPACES CX., THORACIC, LUMBAR Routine 05/05/2020 5:56 AM EDT Spinal stenosis of lumbar region with neurogenic claudication documented in this encounter Results * POCT Glucose (05/05/2020 12:46 PM EDT) Glucose, POC 171 65 - 199 mg/dL [facility] Comment: Supplemental ranges: <140 mg/dL before meals <180 mg/dL all other times of the day Blood specimen (specimen) 05/05/2020 12:46 PM EDT 05/05/2020 12:46 PM EDT Mychal Lopez MD POINT OF CARE TEST O RDERABLES [facility] [place] [address] * XR Lumbar Spine 1 View (05/05/2020 [...] Glucose, POC 145 65 - 199 mg/dL [facility] Comment: Supplemental ranges: <140 mg/dL before meals <180 mg/dL all other times of the day Blood specimen (specimen) 05/05/2020 6:17 AM EDT 05/05/2020 6:17 AM EDT Mychal Lopez MD POINT OF CARE TEST O RDERABLES [facility] [place] [address] documented in this encounter Visit Diagnoses Diagnosis s/p L3-4 laminectomy 05/05/[address] Lopez- Primary Other postprocedural status Spinal stenosis of lumbar region with neurogenic claudication Spinal stenosis, lumbar region, with neurogenic claudication Spinal stenosis of lumbar region Spinal stenosis, lumbar region, without neurogenic claudication documented in this encounter Administered Medications Inactive Administered Medications - up to 3 most recent administrations Medication Order MAR Action Action Date Dose Rate Site cyclobenzaprine (Flexeril) tablet 10 mg 10 [...] Routine documented in this encounter Care Teams Appraiser Timber Relationship Specialty Start Date End Date Adelita Charles MD [address] [place] [address] PCP - General 05/07/12 documented as of this encounter
--- OUTSIDE RECORDS SUMMARY | 2024-05-28 20:03 | XMS_ITS | Encounter Summary ---
Author Organization [facility] [address] Care Team Providers Care Smooth And Burr Worker Composites Name Role Phone Adelita Charles MD Primary Care Provider [phone] Reason for Visit * Auth/Cert Specialty Diagnoses / Procedures Referred By Pilar ho Referred To Contact Diagnoses Spinal stenosis Procedures PRO LAMINEC/FACETECT/FORAMIN, LUMBAR 1 SEG PRO LAMINEC/FACETECT/FORAMIN, EACH ADDNL LAMINECTOMY, FACETECTOMY & FORAMINOTOMY,LUMBAR, ONE LEVEL (WRVU 15.37) ADD'L INTERSPACES CX., THORACIC, LUMBAR (WRVU 3.47) MODIFIER L3 MODIFIER L4 Referral ID Status Reason Start Date Expiration Date Visits Re quested Visits Authorized [id number] 1 1 Encounter Details Date Type Department Care Team (Late st Contact Info) Description 05/05/2020 10:16 AM EDT Anesthesia Event [place] [address] Mercedes Hyman MD [facility] [place] [address] Anesthesia Record Procedure Summary Procedure Name Responsible Anesthesiologist Anesthesia Start Time Anesthesia Stop Time LAMINECTOMY, FACETECTOMY & FORAMINOTOMY,LUMBAR, ONE LEVEL (WRVU 15.37) (Bilateral: Spine Lumbar) Mercedes Hyman MD 05/05/20 1016 05/05/20 1232 Events Date Time Event Comment 05/05/2020 0842 1016 AN Verify 1016 Start 1016 An Start Data 1016 An Induction 1020 An Intubation 1021 Anesthesia Ready 1106 Break/Relief In I assumed ca re for Break Relief before which we: 1. Identified the patient 2. Identified the responsible provider(s) 3. Reviewed the pertinent medical history 4. Discussed the surgical plan and course 5. Reviewed intra-op anesthesia management and issues during anesthesia 6. Set expectations for the relief (and/or post-procedure) period 7. Allowed opportunity for questions and acknowledgement of understanding Martin Goss CRNA 1132 Break/Relief Out 1232 Extubation/LMA Out 1232 an stop data 1232 Recovery or ICU Handoff Meghan ent care was transferred to the destination unit staff after review of the patient's medical history, current anesthetic/surgical status and plan, according to the Provider Handoff Checklist. 1232 Stop Meds Name Total fentaNYL 100 mcg IV Lidocaine 100 mg Propofol 200 mg Rocuronium 70 mg PHENYLephrine 80 mcg ePHEDrine 30 mg Ondansetron 4 mg Neostigmine 3 mg Glycopyrrolate 0.6 mg ceFAZolin (Ancef) 2g in dextrose 5% 100 mL 2 g lactated ringers infusion 1,000 mL * Agents Name O2 Air N2O Sevoflurane (et) * Blood No blood administrations on file. Lines, Drains, and Airways Type Details Placement Removal Incision 05/05/20; lumbar spi ne; 04/13/22 (not here at present) 05/05/20 0000 by Aubrie Lin, RN 04/13/22 0000 by Adelina Davis, RN (RETIRED) Peripheral IV Line - Single Lumen 05/05/20; 0745; metacarpal vein (top of hand), right; [id number] catheter system; 20 gauge, 1 in length; C W RN; distraction, intradermal injection, tolerated well, appears comfortable, age-appropriate response; no longer indicated, catheter/device intact, removed per policy/procedure; 05/05/20; 1514 05/05/20 0745 by Perla Nichols RN 05/05/20 1514 by J Luis Christianson, RN ETT Mask Ventilation: Ilia mascorro (1); ETT Type: Cuffed, Oral; ETT Size: 7.5 mm; Pack Blade: 2; Notes: Asleep, Pre-O2, Cricoid Pressure, Stylette; Attempts: 1; Laryngoscopy Grade: 1; ETT Placement Verified By: Capnometry, Visual; Secured at Teeth: 24 cm; Inserted by: ubaldo; Removal Date: 05/05/20; Removal Time: 1232 05/05/20 1020 by Vicky Hernández CRNA 05/05/20 1232 by Vicky Hernández CRNA documented in this encounter Social History Tobacco Use Types Packs/Day Years [...] on file documented as of this encounter OR Notes * Anesthesia Postprocedure Evaluation - Mercedes Hyman MD - 05/05/2020 1:10 PM EDT Department of Anesthesiology Post-procedure Note Patient: Kaushik Clemons Procedure Summary Date: 05/05/20 Room / Location: [facility] OR [facility] MAIN OR Anesthesia Start: 1016 Anesthesia Stop: 1232 Procedures: LAMINECTOMY, FACETECTOMY & FORAMINOTOMY,LUMBAR, ONE LEVEL (WRVU 15.37) (Bilateral Spine Lumbar) ADD'L INTERSPACES CX., THORACIC, LUMBAR (WRVU 3.47) (Bilateral Spine Thoracic) MODIFIER L3 (Bilateral ) MODIFIER L4 (Bilateral ) Diagnosis: Spinal stenosis of lumbar region with neurogenic claudication (Spinal stenosis) Surgeon: Mychal Chapa MD Responsible Provider: Mercedes Hyman MD Anesthesia Type: general ASA Status: 3 All Anesthesia Providers: Anesthesiologist: Mercedes Hyman MD 7TH GRADE TEACHER: Vicky Hernández CRNA Vitals Value Taken Time BP 131/83 05/05/2020 1:00 PM Temp 37 ??C (98.6 ??F) 05/05/2020 12:35 PM Pulse 90 05/05/2020 12:35 PM Resp 16 05/05/2020 12:45 PM SpO2 95 % 05/05/2020 1:09 PM Pain Level Vitals shown include unvalidated device data. Patient Location: PACU/[facility] Level of Consciousness: Awake and Alert Pain Management: Satisfactory Analgesia PONV: None Cardiovascular Status: At Baseline and Hemodynamically Stable Respiratory Status: At Baseline and Room Air Postoperative Fluid Status: Intravascular EUvolemia Possible Anesthetic Complications: NONE apparent at time of evaluation Final Primary Anesthesia Type: General (The anesthetic type performed was the same as planned.) Comments: MERCEDES HYMAN MD * Anesthesia Preprocedure Evaluation - Mercedes Hyman MD - 05/05/2020 8:41 AM EDT Pre-Anesthesia Evaluation for: Kaushik nsyder 60 y.o. male. Procedure(s): LAMINECTOMY, FACETECTOMY & FORAMINOTOMY,LUMBAR, ONE LEVEL (WRVU 15.37) ADD'L INTERSPACES CX., THORACIC, LUMBAR (WRVU 3.47) MODIFIER L3 MODIFIER L4 Patient Active Problem List Diagnosis ??? Spinal stenosis of lumbar region History reviewed. No pertinent past medical history. History reviewed. No pertinent surgical history. Social History Tobacco Use ??? Smoking status: Former Smoker Types: Cigarettes ??? Smokeless tobacco: Never Used Substance Use Topics ??? Alcohol use: Not on file Comment: a long time ago Social History Substance and Sexual Activity Drug Use Not on file Comment: no pot Allergies Allergen Reactions ??? Norvasc [Amlodipine] itchy Medications: MAR and/or home medications have been reviewed. Physical Exam: Most Recent Vitals: 05/05/20 0611 BP: 139/73 Pulse: 58 Resp: 18 Temp: 36.5 ??C (97.7 ??F) SpO2: 98% Body mass index is 34.44 kg/m??. Height: 177.8 cm (5' 10) Weight: 108.9 kg (240 lb) Airway Assessment: Mallampati: II TM distance: >3 FB Neck ROM: full Cardiovascular Assessment: cardiovascular exam normal Pulmonary Assessment: pulmonary exam normal Dental Assessment: (+) lower dentures and upper dentures Misc Assessment: Anesthesia Plan: ASA 3 general, with a(n) intravenous induction Pt seen chart reviewed lum hopson PMHx; -CAD -SOB -CP, good exercise tolerance -HTN +NIDDM -RAD -Liver/kidney disease -URI -GERD NPO today Anes Hx - for complications R & B reviewed Plan Gen ET Region - Other Informed Consent: Anesthetic plan and risks discussed with patient and spouse. Use of blood products discussed with patient and spouse who consented to blood products. Plan discussed with 7TH GRADE TEACHER. PAT Clinic Note documented in this encounter Plan of Treatment Not on file documented as of this encounter Visit Diagnoses Not on filedocumented in this encounter Administered Medications Inactive Administered Medications - up to 3 most recent administrations Medication Order MAR Action Action Date Dose Rate Site ceFAZolin (Ancef) 2g in dextrose 5% 100 mL 2 g, Intravenous, EVERY 3 HOURS, 1 dose, First dose on Sun05/05/20 at 0630, Administer over 30 Minutes, Redose after 3 hours., Intra-Operative (Intra-Procedure), Indication for (Active or Suspected): Prophylaxis Given 05/05/2020 10:24 AM EDT 2 g ePHEDrine 5 mg/mL multi-dose injection PRN, Starting on Sun05/05/20 at 1043, Until Sun05/05/20 at 1232, Anesthesia Intra-op, Routine Given 05/05/2020 11:23 AM EDT 10 mg Given 05/05/2020 11:01 AM EDT 10 mg Given 05/05/2020 10:43 AM EDT 10 mg fentaNYL 50 mcg/mL multi-dose injection PRN, Starting on Sun05/05/20 at 1017, Until Sun05/05/20 at 1232, Anesthesia Intra-op, Routine Given 05/05/2020 10:25 AM EDT 50 mcg Given 05/05/2020 10:17 AM EDT 50 mcg glycopyrrolate (ROBINUL) multi-dose injection PRN, Starting on Sun05/05/20 at 1204, Until Sun05/05/20 at 1232, Anesthesia Intra-op, Routine Given 05/05/2020 12:04 PM EDT 0.6 mg lactated ringers infusion 1,000 mL, at 100 mL/hr, Intravenous, CONTINUOUS, Starting on Sun05/05/20 at 0745, Until Sun05/05/20 at 1514, Day of Surgery (Day of Procedure) New Bag 05/05/2020 10:09 AM EDT New Bag 05/05/2020 7:50 AM EDT 1,000 mLs 100 mL/hr lidocaine (PF) (XYLOCAINE) 100 mg/5 mL (2 %) injection PRN, Starting on Sun05/05/20 at 1018, Until Sun05/05/20 at 1232, Anesthesia Intra-op, Routine Given 05/05/2020 10:18 AM EDT 100 mg neostigmine (BLOXIVERZ) injection PRN, Starting on Sun05/05/20 at 1204, Until Sun05/05/20 at 1232, Anesthesia Intra-op, Routine Given 05/05/2020 12:04 PM EDT 3 mg ondansetron (ZOFRAN) injection PRN, Starting on Sun05/05/20 at 1039, Until Sun05/05/20 at 1232, Anesthesia Intra-op, Routine Given 05/05/2020 10:39 AM EDT 4 mg PHENYLephrine in NS (PF) (SOPHIE-SYNEPHRINE) 0.8 mg/10 mL (80 mcg/mL) multi-dose injection Syrg PRN, Starting on Sun05/05/20 at 1048, Until Sun05/05/20 at 1232, Anesthesia Intra-op, Routine Given 05/05/2020 10:48 AM EDT 80 mcg propofol (DIPRIVAN) 10 mg/mL bolus injection (Anesthesia) PRN, Starting on Sun05/05/20 at 1018, Until Sun05/05/20 at 1232, Anesthesia Intra-op Given 05/05/2020 10:18 AM EDT 20 0 mg rocuronium (ZEMURON) multi-dose injection PRN, Starting on Sun05/05/20 at 1018, Until Sun05/05/20 at 1232, Anesthesia Intra-op, Routine Given 05/05/2020 11:01 AM EDT 20 mg Given 05/05/2020 10:18 AM EDT 50 mg documented in this encounter Care Teams Smooth And Burr Worker Composites Relationship Specialty Start Date End Date Adelita Charles MD [address] [place] [address] PCP - General 05/07/12 documented as of this encounter
--- OUTSIDE RECORDS SUMMARY | 2024-05-28 20:03 | XMS_ITS | Encounter Summary ---
Author Organization [facility] [place] [address] Care Team Providers Care Automated Logistics Specialist Name Role Phone Adelita Charles MD Primary Care Provider [phone] Reason for Visit * Auth/Cert Specialty Diagnoses / Procedures Referred By Pilar ho Referred To Contact Diagnoses OA Procedures PRO TOTAL HIP ARTHROPLASTY TOTAL HIP ARTHROPLASTY, ANTERIOR APPROACH (WRVU 20.72) MODIFIER SALAS & NEPHEW - POLAR STEM CEMENTLESS MODIFIER SALAS & NEPHEW - R3 ACETABULAR CUP Bret Peterson MD [address] [place] [address] [facility] Referral ID Status Reason Start Date Expiration Date Visits Re quested Visits Authorized [id number] 1 1 Encounter Details Date Type Department Care Team (Late st Contact Info) Description 04/13/2022 9:57 AM EDT Anesthesia Event Operating Room [address] [place] [id number] Martin Ward, REGULATORY SERVICES CONSULTANT [address] [place] [address] Anesthesia Record Procedure Summary Procedure Name Responsible Anesthesiologist Anesthesia Start Time Anesthesia Stop Time TOTAL HIP ARTHROPLASTY, ANTERIOR APPROACH (WRVU 19.6) (Left: Hip) Martin Ward, REGULATORY SERVICES CONSULTANT 04/13/22 0957 04/13/22 1142 Events Date Time Event Comment 04/13/2022 0852 0957 AN Verify 0957 Start 0957 An Start Data 1000 Spinal 1004 Anesthesia Ready 1133 an stop data 1133 Recovery or ICU Handoff Meghan ent care was transferred to the destination unit staff after review of the patient's medical history, current anesthetic/surgical status and plan, according to the Provider Handoff Checklist. 1142 Stop Meds Name Total Midazolam 2 mg Propofol 50 mg Propofol INF 829.19 mg Ondansetron 4 mg Dexamethasone 4 mg ceFAZolin (Ancef) 3 g in sod ium chloride 0.9% 150 mL (using 3 x 1 g/50 mL MB+) infusion 3 g Mepivacaine (PF) 2% 50 mg Lactated Ringers 1,000 mL * Agents Name O2 Air N2O O2 Auxiliary Flowmeter 1 * Blood No blood administrations on file. Lines, Drains, and Airways Type Details Placement Removal Incision 04/13/22; 1030; Left , anterior, medial; hip; vertical; DRESSINGS: DERMABOND PRINEKaren, MEPILEX 04/13/22 1030 by Milena Esposito RN (RETIRED) Peripheral IV Line - Single Lumen 04/13/22; 0818; basilic vein (medial side of arm), right; [id number]-[id number] catheter system; Anatomical Landmarks; 20 gauge; AA; distraction, tolerated well, age-appropriate response; no longer indicated; 04/13/22; 1636 04/13/22 0818 by Adelina Davis RN 04/13/22 1636 by Jonh Riggins LNA documented in this encounter Social History Tobacco [...] OR Notes * Anesthesia Postprocedure Evaluation - Martin Ward CRNA - 04/13/2022 11:42 AM EDT Department of Anesthesiology Post-procedure Note Patient: Kaushik Clemons Procedure Summary Date: 04/13/22 Room / Location: [facility] MAIN OR Anesthesia Start: 956 Anesthesia Stop: 1141 Procedures: TOTAL HIP ARTHROPLASTY, ANTERIOR APPROACH (WRVU 20.72) (Left Hip) MODIFIER SALAS & NEPHEW - POLAR STEM CEMENTLESS (Left Hip) MODIFIER SALAS & NEPHEW - R3 ACETABULAR CUP (Left Hip) Diagnosis: Primary osteoarthritis of left hip (OA) Surgeons: Bret ePterson MD Responsible Provider: Martin Ward CRNA Anesthesia Type: spinal ASA Status: 3 All Anesthesia Providers: INDIRA Independent: Martin Ward CRNA Vitals Value Taken Time BP Temp Pulse Resp SpO2 Pain Level Patient Location: PACU Level of Consciousness: Awake and Alert Pain Management: Satisfactory Analgesia PONV: None Cardiovascular Status: At Baseline Respiratory Status: At Baseline Postoperative Fluid Status: Intravascular EUvolemia Possible Anesthetic Complications: NONE apparent at time of evaluation Final Primary Anesthesia Type: Spinal (The anesthetic type performed was the same as planned.) Comments: Please see PACU flowsheet for VS. Report and care to RN * Anesthesia Procedure Notes - Martin Ward CRNA - 04/13/2022 10:32 AM EDT Associated Order(s): Neuraxial (Operative Procedure/ APS) Procedure: Neuraxial Block Primary Anesthetic Type: Spinal The patient was greeted. The sedation plan, its benefits, risks and alternatives were discussed with the patient. The patient has consented to the procedure. The medical history and chart were reviewed. The timeout was performed. Start time: 04/13/2022 10:00 AM End time: 04/13/2022 10:04 AM Patient Location: Operating Room Patient Prep Position: Sitting Prep: Hand Hygiene, Hat, Mask, Sterile Gloves, Povidone-Iodine and Patient Draped Injection technique: single-shot Skin Anesthetic Lidocaine 1% 1 ml Procedure Technique Level of needle insertion: L3-4 Needle approach: paramedian Needle Type: Alessandra Gauge: 24 Needle length: 4 in Number of attempts: 1 Medications: Date/Time: 04/13/2022 10:00 AM Mepivacaine (PF) 2% - Intrathecal 50 mg - 04/13/2022 10:00:00 AM Events/Notes Events: None ~~~~~~~~~~~~~~~~~~~~~~~~~~~~~~~~~~~~~~~~~~~~~~~~~~~~~~~~~~~~ * Anesthesia Preprocedure Evaluation - Martin Ward CRNA - 04/13/2022 8:52 AM EDT Pre-Anesthesia Evaluation for: Kaushik snyder 62 y.o. male. Procedure(s): TOTAL HIP ARTHROPLASTY, ANTERIOR APPROACH (WRVU 20.72) MODIFIER SALAS & NEPHEW - POLAR STEM CEMENTLESS MODIFIER SALAS & NEPHEW - R3 ACETABULAR CUP Patient Active Problem List Diagnosis Date Noted ??? Pain in left hip 02/28/2022 ??? Diabetes mellitus 02/28/2022 ??? Hypertension 02/28/2022 ??? s/p L3-4 laminectomy 05/05/[address] Chapa 05/05/2020 ??? Spinal stenosis of lumbar region 04/05/2020 Past Medical History: Diagnosis Date ??? CPAP (continuous positive airway pressure) dependence ??? Diabetes ??? Gastroesophageal reflux ??? High blood pressure ??? Hypothyroid ??? Obstructive sleep apnea Past Surgical History: Procedure Laterality Date ??? BACK SURGERY 02/2020 ? ? PRO CORTEZ FACETECTOMY&FORAMOT 1 VRT SGM EA ADDL SGM Bilateral 05/05/2020 ADD'L INTERSPACES CX., THORACIC, LUMBAR (WRVU 3.47) performed by Mychal Chapa MD at [facility] MAIN OR ??? PRO LAMINEC/FACETECT/FORAMIN, LUMBAR 1 SEG Bilateral 05/05/2020 LAMINECTOMY, FACETECTOMY & FORAMINOTOMY,LUMBAR, ONE LEVEL (WRVU 15.37) performed by Mychal Chapa MD at [facility] MAIN OR ??? SHOULDER ARTHROSCOPY 11/2019 Social History Tobacco Use ??? Smoking status: Former Smoker Types: Cigarettes Quit date: 2007 Years since quittin.5 ??? Smokeless tobacco: Never Used Substance Use Topics ??? Alcohol use: Not Currently Comment: a long time ago Social History Substance and Sexual Activity Drug Use Not Currently Comment: no pot Allergies Allergen Reactions ??? Norvasc [Amlodipine] itchy Medications: MAR and/or home medications have been reviewed. Physical Exam: Preprocedure Vitals Current as of 04/13/22 0852 BP: 146/74 Pulse: 45 Resp: 14 SpO2: 98 Temp: 36.3 ??C (97.3 ??F) Height: 177.8 cm (5' 10) (04/13/22) Weight: 104.3 kg (230 lb) (04/13/22) BMI: 33 IBW: 73 kg (160 lb 15 oz) Last edited 04/13/22 08 by AA Currently displaying vitals information from multiple entries within 180 minutes of most recent vitals. Airway Assessment: Mallampati: II TM distance: >3 FB Neck ROM: full Cardiovascular Assessment: Rhythm: regular Rate: normal Pulmonary Assessment: breath sounds clear to auscultation Dental Assessment: (+) upper dentures and lower dentures Misc Assessment: Patient is wearing No contact(s). IV access: Peripheral line Last Filed Perioperative Cognitive Screening Value Time User MiniCOG Total Score: 3 04/13/2022 8:24 AM Adelina Davis RN Anesthesia Plan: ASA 3 spinal, with a(n) intravenous induction Informed Consent: Anesthetic plan and risks discussed with patient. Use of blood products discussed with patient who consented to blood products. Anesthesia Screening documented in this encounter Plan of Treatment Not on file documented as of this encounter Procedures Procedure Name Priority Date/Time Associated Diagnosis Comments ANE NEURAXIAL UPDATED Routine 04/13/2022 10:00 AM EDT documented in this encounter Results * Neuraxial (Operative Procedure/ APS) (04/13/2022 10:00 AM EDT) Narrative Martin Ward CRNA - 04/13/2022 10:00 AM EDT Martin Ward CRNA ? 04/13/2022 10:33 AM Procedure: ?? Neuraxial Block Primary Anesthetic Type: Spinal The patient was greeted. The sedation plan, its benefits, risks and alternatives were discussed with the patient. ??The patient has consented to the procedure. ??The medical history and chart were reviewed. ??The timeout was performed. Start time: 04/13/2022 10:00 AM End time: 04/13/2022 10:04 AM Patient Location: Operating Room Patient Prep Position: Sitting Prep: Hand Hygiene, Hat, Mask, Sterile Gloves, Povidone-Iodine and Patient Draped Injection technique: single-shot Skin Anesthetic Lidocaine 1% ??1 ml Procedure Technique Level of needle insertion: L3-4 Needle approach: paramedian Needle Type: [employer] Gauge: 24 Needle length: 4 in Number of attempts: 1 Medications: Date/Time: ??04/13/2022 10:00 AM Mepivacaine (PF) 2% - Intrathecal 50 mg - 04/13/2022 10:00:00 AM Events/Notes Events: ??None ~~~~~~~~~~~~~~~~~~~~~~~~~~~~~~~~~~~~~~~~~~~~~~~~~~~~~~~~~~~~ Martin Ward CRNA SIGNAL CONSTRUCTOR [facility] documented in this encounter Visit Diagnoses Not on filedocumented in this encounter Administered Medications Inactive Administered Medications - up to 3 most recent administrations Medication Order MAR Action Action Date Dose Rate Site ceFAZolin (Ancef) 3 g in sodium chloride 0.9% 150 mL (using 3 x 1 g/50 mL MB+) infusion 3 g, Intravenous, EVERY 4 HOURS, 1 [...] Procedure), Indication for (Active or Suspected): Prophylaxis New Bag 04/13/2022 10:10 AM EDT 3 g dexAMETHasone (Decadron) injection Intravenous, PRN, Starting on Alison 04/13/22 at 1008, Until Alison 04/13/22 at 1142, Anesthesia Intra-op, Routine Given 04/13/2022 10:08 AM EDT 4 mg lactated ringers infusion Intravenous, CONTINUOUS PRN, Starting on Alison 04/13/22 at 0957, Until Alison 04/13/22 at 1142, Anesthesia Intra-op New Bag 04/13/2022 9:57 AM EDT mepivacaine (PF) (Carbocaine (PF)) 20 mg/mL (2 %) injection Intrathecal, Starting on Alison 04/13/22 at 1000, Until Alison 04/13/22 at 1000, Anesthesia Intra-op, Routine Given 04/13/2022 10:00 AM EDT 50 mg midazolam (pf) (Versed) (1 mg/mL) multi-dose injection Intravenous, PRN, Starting on Alison 04/13/22 at 1000, Until Alison 04/13/22 at 1142, Anesthesia Intra-op, Routine Given 04/13/2022 10:00 AM EDT 2 mg ondansetron (pf) (Zofran) (2 mg/mL) injection Intravenous, PRN, Starting on Alison 04/13/22 at 1008, Until Alison 04/13/22 at 1142, Anesthesia Intra-op, Routine Given 04/13/2022 10:08 AM EDT 4 mg propofoL (Diprivan) (10 mg/mL) infusion Intravenous, CONTINUOUS PRN, Starting on Alison 04/13/22 at 1008, Until Alison 04/13/22 at 1142, Anesthesia Intra-op, Routine Rate/Dose Change 04/13/2022 11:13 AM EDT 50 mcg/kg/min 31.29 mL/hr New Bag 04/13/2022 10:08 AM EDT 100 mcg/kg/min 62.58 mL /hr propofoL (Diprivan) 10 mg/mL bolus injection (Anesthesia) Intravenous, PRN, Starting on Alison 04/13/22 at 1008, Until Alison 04/13/22 at 1142, Anesthesia Intra-op Given 04/13/2022 10:08 AM EDT 50 mg documented in this encounter Care Teams Automated Logistics Specialist Relationship Specialty Start Date End Date Adelita Charles MD [address] [address] PCP - General 05/07/12 documented as of this encounter
--- OUTSIDE RECORDS SUMMARY | 2024-05-28 20:03 | XMS_ITS | Encounter Summary ---
Author Organization [facility] [place] [address] Care Team Providers Care Field Reporter Name Role Phone Adelita Charles MD Primary Care Provider [phone] Reason for Referral * Physical Therapy (Routine) - Closed Specialty Diagnoses / Procedures Referred By Contac t Referred To Contact Physical Therapy Diagnoses Spinal stenosis of lumbar region with neurogenic claudication post op eval Mychal Chapa MD [facility] [place] [address] [facility] [place] [address] Referral ID Status Reason Start Date Expiration Date V isits Requested Visits Authorized [id number] Closed Evaluate and Treat 04/05/2020 04/05/2021 12 12 Reason for Visit * Reason Comments Back Pain Bilateral Hip Pain Bilateral Leg Pain * Consultation (Routine) - Closed Specialty Diagnoses / Procedures Referred By Contac t Referred To Contact [facility] Diagnoses Lumbar stenosis Spine - Lumbar stenosis/ MRI 02/10 @ [facility]/ ?XR Adelita Charles MD [address] [place] [id number] Vel Figueroa MD [facility] [place] [address] Referral ID Status Reason Start Date Expiration Date Visits Re quested Visits Authorized [id number] Closed 03/10/2020 03/10/2021 1 1 Encounter Details Date Type Department Care Team (Late st Contact Info) Description 04/05/2020 3:20 PM EDT Office Visit [facility] Sp[facility] at [facility] [place] [address] Mychal Chapa MD [facility] [place] [address] Spinal stenosis of lumbar region with neurogenic claudication Social History Tobacco Use Types Packs/Day Years Used Date Smoking Tobacco: Former Cigarettes Smokeless Tobacco: Never Sex and Gender Information Value Date Recorded Sex Assigned at Not on file Gender Identity Not on file Sexual Orientation Not on file documented as of this encounter Last Filed Vital Signs Vital Sign Reading Time Taken Comments Blood Pressure 139/77 04/01/2020 11:13 AM EDT Pulse 60 04/01/2020 11:13 AM EDT Temperature 36.6 ??C (97.8 ??F) 04/01/2020 11:13 AM E DT Respiratory Rate - - Oxygen Saturation - - Inhaled Oxygen Concentration - - Weight 108.9 kg (240 lb) 04/01/2020 11:13 AM EDT Height 177.8 cm (5' 10) 04/01/2020 11:13 AM EDT Body Mass Index 34.44 04/01/2020 11:13 AM EDT documented in this encounter Progress Notes * Mychal Chapa MD - 04/05/2020 3:20 PM EDT Chief complaint: Low back pain radiating to bilateral lower extremities History of present illness: Mr. Clemons is a 60-year-old male whom I have seen in consultation for Dr. Charles regards to his back pain that radiates to his bilateral buttocks and posterior thighs. The symptoms have been present for years but getting worse as of late. The pain tends to come on predominantly while he is walking, and get some relief by sitting down or flexing forward. He finds a shopping cart helpful. While he is able to walk up to 2 miles, after half a mile or so his leg started tofeel very heavy and tired. He is able to stand more comfortably, though prolonged standing in one spot though being able to lean forward is also a problem for him. He denies any numbness or weakness. The pain occasionally bothers him at night. He denies constitutional symptoms or change in his bowel or bladder function. He is taking gabapentin, ibuprofen, and Tylenol without much benefit. He did 3 months of physical therapy with no improvement. He saw a chiropractor that did not help. He has not had any epidural steroid injections or prior spinal surgery. Past medical history: Diabetes, gout, hypertension, sleep apnea Past surgical history: Left rotator cuff repair Medications and allergies were reviewed and are in ED H. 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 He has not missed work related to this. He doesnot smoke or drink. Review of systems: All negative except musculoskeletal as above physical exam Patient is 5 foot 10, 240 pounds, with a BMI of 34.4 General: Patient is comfortable, no acute distress Back: His back is nontender to palpation. He can flex 80 degrees and extend 15 degrees. Neurological exam: He walks a normal gait. He can heel walk and toe walk. Motor exam reveals 5/5 strength of all lower extremity motor groups. He has normal sensory exam. Reflexes are 2/4 at the knees and 1/4 at the ankles. Straight leg raise is negative bilaterally. He has no clonus. Hip exam: He has normal, painless range of motion of both hips. Vascular exam: He has 1+ pulses bilaterally. Imaging: AP and lateral flexion/extension x-rays of the lumbar spine from 04/05/2020 were reviewed. These show no significant scoliosis or spinal listhesis. There is no instability. There are moderatedegenerative changes throughout the lumbar spine. MRI of the lumbar spine from 02/11/2020 was reviewed. Shows moderate degenerative changes throughoutthe lumbar spine. At L2-L3, there is mild central and lateral recess stenosis and possibly a left L2-L3 facet cyst that does not cause significant nerve compression. At L3-L4, there is moderate-severe central and lateral recess stenosis. At L4-L5, there is mild central and moderate bilateral foraminal narrowing. There is a high intensity zone in the L4-L5 disc. There is no significant nerve compression at L5-S1. Assessment/plan: Mr. Clemons is a 60-year-old male who presents with approximately 1 year of neurogenic claudication in the setting of spinal stenosis most pronounced at the L3-L4 level. We discussed treatment options for this that include continued medication, further physical therapy, epidural steroid injection, and surgery. He feels as though this is markedly compromising his quality of life, and he wants to proceed with surgery. Surgery in his case will be an L3-L4 laminectomy. While there issome mild stenosis at the L2-L3 level, he does not have any anterior thigh pain, which I would expect if that level was a significant contributor to his symptoms. The planned surgery was demonstratedon the spine model. Consent was obtained. Risks were documented on the consent form. The typical recovery was reviewed. He will need a history and physical from his primary care physician and preadmission testing. I told him to avoid any aspirin, anti-inflammatory medication, or fish oil within 1 week of surgery. We will schedule surgery at his convenience. He understands that the goal is to improve his claudication symptoms and that his back pain may persist. I told him that he would have activity restrictions for 1 month and that it may be up to 3 months until he can return to work doing heavy duty activities like carrying tires. documented in this encounter Miscellaneous Notes * Addendum Note - Odalis Briceno RN - 04/05/2020 3:20 PM EDTAddended by: ODALIS BRICENO on: 04/05/2020 04:31 PM Modules accepted: Orders documented in this encounter Plan of Treatment Scheduled Referrals Name Type Priority Associated Diagnoses Orde r Schedule Referral to Physical Therapy Outpatient Referral Routine Spinal stenosis of lumbar region with neurogenic claudication Ordered: 04/05/2020 documented as of this encounter Procedures Procedure Name Priority Date/Time Associated Diagnosis Comments LAMINECTOMY, FACETECTOMY & FORAMINOTOMY,LUMAR, ONE LEVEL Routine 04/05/2020 4:09 PM EDT Spinal stenosis of lumbar region [...] claudication documented in this encounter Care Teams Field Reporter Relationship Specialty Start Date End Date Adelita Charles MD [address] [place] [address] PCP - General 05/07/12 documented as of this encounter
--- OUTSIDE RECORDS SUMMARY | 2024-05-28 20:03 | XMS_ITS | Encounter Summary ---
Author Organization [facility] [place] [address] Care Team Providers Care Door Hanger Name Role Phone Adelita Charles MD Primary Care Provider [phone] Reason for Visit * Reason Comments Follow Up Surgery LT THR 04/13/2022 Encounter Details Date Type Department Care Team (Late st Contact Info) Description 05/12/2022 3:30 PM EDT Office Visit Orthopaedics at [facility] [address] [place] [id number] Jeannette Echols PA [facility] [place] [address] Status post total replacement of left hip [...] Progress Notes * Jeannette Echols PA - 05/12/2022 3:30 PM EDT Date of Surgery: 04/13/2022 Procedure: Left total hip arthroplasty via direct anterior approach Kaushik Clemons is a 62 y.o. male presents today for a first postoperative visit after undergoing a total hip arthroplasty with Dr. Peterson. He tells me that he is doing well, he has no pain in the hip, only stiffness. He has started outpatient PT and is seeing them once a week. He is currently full weightbearing. Pain: 0/10 Current pain medications: None DVT Prophylaxis: ASA 81mg twice a day Physical Therapy: [facility]. Going once a week Leg Length Discrepancy: denies Review of Systems: [...] healed without erythema or drainage. Hip ROM: 90 degrees flexion, 10 degrees IR, 20 degrees ER, 20 degrees abduction Strength: 5/5 hip flexion, 5/5 [...] femoral stem only visible on the lateral projection, I suspect this is likely a vascular channel ASSESSMENT: 4 weeks s/p Left total hip arthroplasty via direct anterior approach with Dr. Peterson. PLAN: Follow up in 2 months as scheduled with Xray before appointment to evaluate lucency of medial femoral cortex, suspect this is a vascular channel and does not represent periprosthetic fracture given patients pain level Continue weightbearing as tolerated No lifting greater than 20lbs for month 2 and 30lbs for month 3 No high impact activity including running, jumping or jogging Slowly and gradually increase activity to tolerance while abiding by lifting and impact restrictions Discussed kayaking, mowing the lawn with a push mower and dancing. No kayaking for at least anothermonth, no mowing with a push mower for two more months and perhaps dancing in short intervals, avoiding repetitive high impact and pivoting on the surgical extremity. Continue use of ice and compression as needed for swelling Ok to submerge incision under water Start scar massage Lotions and ointments may be applied to the incision Stop DVT prophylaxis at 4 weeks post op Ok to resume vitamins and supplements Stop Meloxicam, Ibuprofen or Aleve may be used if needed for pain relief Patient is permitted to drive at 4 weeks postoperatively if He is not taking any medications that can cause drowsiness including Dilaudid, Oxycodone, Tramadol, Flexeril, etc We discussed the appropriate precautions surrounding dental [...] of this encounter Results * XR Pelvis and [...] who have questions please contact the health residential child care counselor that requested your imaging first. ? Narrative 07/07/2022 2:57 PM EDT EXAMINATION: XR [...] No abnormal soft tissue density. Procedure Note Dominic Dasilva MD - 07/07/2022 EXAMINATION: XR PELVIS [...] patients who have questions please contactthe health residential child care counselor that requested your imaging first. 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
--- OUTSIDE RECORDS SUMMARY | 2024-05-28 20:03 | XMS_ITS | Encounter Summary ---
Author Organization [facility] [place] [address] Care Team Providers Care Municipal Court Judge Name Role Phone Adelita Charles MD Primary Care Provider [phone] Encounter Details Date Type Department Care Team (Latest Contact Info) Description 05/12/2022 3:15 PM EDT Ancillary Procedure Radiology XRay at the [facility] [address] [place] [phone] Bret Peterson MD [address] [facility] [address] [place] [address] Status post total replacement of left hip [...] XR PELVIS AND LAT HIP LEFT Routine 05/12/2022 2:36 PM EDT Status post total replacement of left hip documented in this encounter Results * (ABNORMAL) XR Pelvis [...] who have questions please contact the health acute care nurse that requested your imaging first. ? Narrative 05/12/2022 2:54 PM EDT EXAMINATION: XR PELVIS AND LAT HIP LEFT (GENERIC) CLINICAL HISTORY: assess hip healing. s/p thr TECHNIQUE: Low AP pelvis radiograph, lateral radiograph the left hip (2 images) COMPARISON: Spot fluoroscopic images of the left hip/pelvis 04/13/2022 Radiographs of the pelvis and left hip 12/07/2021 from [facility] FINDINGS: Since 12/07/2021, status post noncemented left [...] hip documented in this encounter Care Teams Municipal Court Judge Relationship Specialty Start Date End Date Adelita Charles MD [address] [address] PCP - General 05/07/12 documented as of this encounter
--- OUTSIDE RECORDS SUMMARY | 2024-05-28 20:03 | XMS_ITS | Encounter Summary ---
Author Organization [facility] [place] [address] Care Team Providers Care Switchman Supervisor Name Role Phone Adelita Charles MD Primary Care Provider [phone] Encounter Details Date Type Department Care Team (Latest Contact Info) Description 04/18/2023 Travel Social History Tobacco Use Types Packs/Day [...] on filedocumented in this encounter Care Teams Switchman Supervisor Relationship Specialty Start Date End Date Adelita Charles MD [address] [place] [address] PCP - General 05/07/12 documented as of this encounter
--- OUTSIDE RECORDS SUMMARY | 2024-05-28 20:03 | XMS_ITS | Encounter Summary ---
Author Organization [facility] [address] Care Team Providers Care Carpenter Helper Maintenance Name Role Phone Adelita Charles MD Primary Care Provider [phone] Reason for Referral * Consultation (Routine) - Closed Specialty Diagnoses / Procedures Referred By Pilar t Referred To Contact Diagnoses Primary osteoarthritis of left hip Pre-op exam Bret Peterson MD [address] [facility] [place] [address] Adelita Charles MD [address] [address] Referral ID Status Reason Start Date Expiration Date V isits Requested Visits Authorized [id number] Closed Consult, Test & Treat 03/15/2022 09/11/2022 1 1 Encounter Details Date Type Department Care Team (Late st Contact Info) Description 03/15/2022 Orders Only Orthopaedics at [facility] [address] [place] [id number] Bret Peterson MD [address] [facility] [place] [address] Primary osteoarthritis of left hip; Pre-op exam; Pre-op testing Social History Tobacco Use Types Packs/Day Years [...] as of this encounter Progress Notes * Catrachita Go RN - 03/15/2022 4:35 PM EDT Short Stay Assessment What is the patient's age group: 0-65 What is the patient's sex?: Male How far on average can you walk?: 2+ blocks (without rest) Do you perform daily exercise?: Yes In what capacity?: Walking, Other Which walking aid do you use?: None Do you currently use a home health aid, meals on wheels or visiting nurse?: No Do you have someone who will help you with household tasks after your surgery?: Yes How often will you have support at home to perform daily household tasks such as cooking, cleaning and laundry?: A lot (Everyday) Do you have transportation to and from appointments?: Yes Who will be transporting you?: spouse/significant other How far away from the hospital will you be recovering?: 2 hrs Are you the primary care give for someone else in your home?: No If you are a primary hourly caregiver, will this person have another caregiver following your surgery?: Yes or N/A Do you feel you will need extra help getting into your home after surgery due to difficult entryway, steep stairs, etc.?: No (5 steps to get into the house) Do you suffer from chronic pain?: No Do you have a post-op pain management plan in place?: No What is your current discharge plan?: Home with VNA services Any concerns you have regarding your recovery at home following surgery?: no Do you want to go home the same day of your surgery, if you meet your therapy goals and have no medical concerns?: Yes Total Score:: 39 Interpretation of score: Score (0-15) Indicate High Risk? Prediction: Discharge extended, inpatient stay anticipated longer than 2 nights of hospital level of care. Score (16-27) Indicate medium risk? Prediction: Possible additional intervention and support required to discharge directly home Score (28-39) Indicate Low Risk? Prediction: Discharge directly home * Catrachita Go RN - 03/15/2022 4:35 PM EDT STOP-BANG Questionnaire ?? BMI: BMI Readings from Last 1 Encounters: 03/01/22 33.00 kg/m? Age: 62 y.o. ?? Sex: male ?? STOP 1. Do you snore loudly (louder [...] cm)? No 4. Is gender male? Yes ?? Total Score: 3 ?? High Risk of IVETTE: YES 5-8 Intermediate Risk of IVETTE: YES 3-4 Low Risk of IVETTE: YES 0-2 * Catrachita Go RN - 03/15/2022 4:35 PM EDT The patient is scheduled to have a Total Joint Replacement surgery. After meeting with the patient,it has been determined based on the DVT prophylaxis questionnaire that the patient is going to be prescribed Aspirin after surgery due to not having any risk factors for DVT. The patient does not require a prescription because they will be using 81 mg aspirin after surgery. * Catrachita Go RN - 03/15/2022 4:35 PM EDT Pre-Operative COVID-19 Testing 03/15/22 Kaushik Clemons [address] [place] [phone] *Due to being scheduled to have a surgery that is going to require some length of admission to the medical surgical unit, it is required that you be tested for COVID-19 in order to proceed with surgery. Surgery Date: Type of Surgery: Total hip replacement Location of Surgery: [facility] Ordering Provider for COVID-19 Test: Doctor Peterson COVID-19 Test Appointment date: COVID-19 Test Appointment time: Covid-19 Test Site: [facility] Determine which testing site patient will go to and delete other options: ??? Inform the patient that the testing site is at [facility]: o Your apt is on: o [facility]rive at the [facility], This is the white building in the front of the campus. o Your test is going to be performed in your car under the giant tent. o Please drive your car and line up in the line to enter the tent. o The drive thru tent is where your test will be performed. Staff will verify your name, date of , and physical address. o Stay in your car and roll down your window, Please leave your mask on until you are asked to remove it. ??? Inform the patient that the testing site is at [facility]: o [facility] will be calling you to schedule your COVID test and give you instructions on where to arrive. ??? Inform the patient that the testing site is at [facility]: o The patient must call [phone] to schedule their COVID test on date: o We will fax an order on your behalf ??? Inform the patient that the testing site is at [facility]: o Your apt is on: o The testing site is located at [address] o They should take a left when they reach the top of the drive way and drive around to the left side of the building. o Please inform the patient to remain in their vehicle as it is a drive up test. They will be registered and tested in their vehicle. ??? Inform the patient that the testing site is at [facility] o Your apt is on: o Please enter the [facility] via [address]. o At the bottom of the ramp take a left in front of the build toward the white testing tent. o This is a drive up test, you will remain in your car. o Be prepared to show your Material Inspector's License/ID, and if a minor child we will need to confirm the name, and date of . ??? Inform the patient that the testing site is at [facility]: o Your apt is on: o Inform the patient the testing site Is located at [facility], located at [address] [place] [address]. o Patients will come up the hill and look for the cones and signs for the testing tent. Depending on which way you come up the [place], you would take a left or right into the tent area. o It is a drive through process so the patients will not need to leave their car. ??? Inform the patient that the testing site is at [facility]: o [facility] will be calling you to schedule your COVID test and give you instructionson where to arrive. Inform the patient that the testing site is at [facility]: o You have chosen to choose a site for a COVID PCR test that is not through the [employer] [facility]. You must be tested no more than 5 days before your surgery date and [facility] must have a hard copy of their results in your record 24 hours prior to your surgery. Without the result your surgery will be canceledor rescheduled. Education for the Patient: ??? Inform the patient that some dogs have been found to act aggressively or distressed during testing as it may feel uncomfortable to their judge's clerk. Therefore, we ask that all dogs, unless it is a service animal or the dog is in a kennel or behind a gated section, be left at home for this quick testas bringing your dog may result in a cancellation of the test . ??? Inform the patient that if testing is not completed, the procedure will need to be rescheduled to allow for pre-procedure COVID-19 testing. ??? Inform the patient to call if they develop signs or symptoms such as fever, cough, shortness ofbreath, or difficulty breathing after testing. ??? Inform the patient that following their test, they should quarantine themselves as best they can (okay to work and go out for essential items) until their procedure date / time. Quarantine means a person from other groups of people / individuals. The patient should also avoid unnecessary trips to public places, contact with anyone that is not in their direct household during this time, gathering in large groups etc. ??? We will only be calling patients with positive results but results are available through ???[employer]?? as soon as they are resulted. o [email or web address] - Click Create an account to begin the process. Patients my also download the felicia ???MyChart?? for[employer]ph[employer]ulalia. o Negative Test Results: The patient should continue to quarantine themselves as best they can (okay to work and go out for essential items) until their procedure date / time. Quarantine means a person from other groups of people / individuals. The patient should also avoid unnecessary trips to public places, contact with anyone that is not in their direct household during this time, gathering in large groups etc. o Positive Test Results: The patient should continue self-isolation and call their PCP for next steps with any positive test result. The procedure will be rescheduled at a later date. Details of thiswill be discussed with the patient at that time. Notes for Scheduling COVID-19 Testing: ??? COVID-19 pre-procedure testing must be done within approximately 72 hours of the procedure dateand the result must be available before the procedure date. There are exceptions to Sunday, Tuesdays, and Sunday - see below - since testing is not available on the weekends at this time. o For Sunday cases, testing must be done on . o For Sunday and Sunday cases, testing must be done on Sunday. Resources: ??? CDC.gov (2019). https://www.cdc.gov/coronavirus/2019-ncov/hcp/wtqbddpiaxy-et-djrf-patients.html ??? [place] [employer]esthesiologist. (2020). https://www.asahq.org/about-asa/newsroom/news-rele ases//gbv-gtx-xalx-egdxk-vmibhklbb-bj-vazcczkcxwcfl-sddynwr-hld-the-covid -19-virus documented in this encounter Plan of Treatment Scheduled Referrals Name Type Priority Associated Diagnoses Orde r Schedule Referral to General Internal Medicine Outpatient Referral Routine Primary osteoarthritis of left hip Pre-op exam Ordered: 03/15/2022 documented as of this encounter Visit Diagnoses Diagnosis Primary osteoarthritis of left hip Primary localized osteoarthrosis, pelvic region and thigh Pre-op exam Preoperative examination, unspecified Pre-op testing Preoperative examination, unspecified documented in this encounter Care Teams Carpenter Helper Maintenance Relationship Specialty Start Date End Date Adelita Charles MD [address] [place] [address] PCP - General 05/07/12 documented as of this encounter
--- OUTSIDE RECORDS SUMMARY | 2024-05-28 20:03 | XMS_ITS | Encounter Summary ---
Author Organization [facility] [place] [address] Care Team Providers Care Brake Repairer Railroad Name Role Phone Adelita Charles MD Primary Care Provider [phone] Reason for Visit * Reason Onset Date Comments Drainage from Incision 05/06/2020 Encounter Details Date Type Department Care Team (Late st Contact Info) Description 05/06/2020 Telephone [facility] [place] [address] Gardenia Grossman RN Drainage from Incision Social History Tobacco Use Types Packs/Day Years [...] encounter Miscellaneous Notes * Telephone Encounter - Nisha Rosado LPN - 05/06/2020 4:11 PM EDT Serena called with an update, she has placed a larger thicker dressing on the wound, there is now only a small amount of blood on dressing nothing active, plan is to check in tomorrow, unless Kaushik develops a fever, or non stop bleeding, in which case she will call resident public relations player. Provider number to Serena, she knows to ask for the ortho resident public relations player * Telephone Encounter - Gardenia Grossman RN - 05/06/2020 1:31 PM EDT Images from the original note were not included. TRIAGE CALL Caller: Serena Clemons pt's with her Kaushik audibly in immediate background Reason for Call: bloody drainage from surgical incision Symptom Review: Pt is afebrile; generally feels well following his L3-4 laminectomy yesterday with Dr. Chapa. Pt was discharged same day with a surgical drsg in place. Onset/location: bloody drainage from distal end of umbar surgical drsg noted this noon after pt gotout of bed to mobilize as instructed. Caller reports base of drsg is saturated and bloody drainage is running down his backside. During conversation pt's reported that the drainge had slowed then stopped. Review of Systems related to Reason for Call: pt is afebrile, pt reports feels generally well; Reports pain is a 2/10 when supine; increases to a 6/10 when sitting or up mobilizing. Pt has been talking tylenol, alternating with ibuprofen, and oxycodone as ordered for pain management. Pt denies neurological changes; no new leg weakness or numbness; No B/B changes. Asked pt's if she could take a photo of the drsg and incisional area. Explained to caller thatits not unusual for a pocket of fluid to accumulate following surgery; that sometimes with pressurefrom sittng (often while driving home), or repositioning this can spontaneously drain. Advised pt that I would check with Dr Chapa to see if he wanted existing drsg reinforced or changed. Reviewed above with Dr Chapa who requested pt hold any ASA or NSAIDS; to use ice tylenol, ibuprofen and flexeril as ordered for sx mgmt. Provider requested drsg change. Advised Isabel that Dr Chapa was requesting that she remove existing saturated drsg. While the drsg was off, to evaluate wound edges and sutures to assure they are intact. Explained that if she takes a photo of the incision and the old drsg at the time of the drsg change, sends it in via [facility]. wecan do a remote asmt to identify any concerns that warrant a time sensitive eval/change in plans. Requested that when she redresses the incisional area, that she add extra padding over the area noted to be draining (or previously draining), explaining that this will provide added absorption and pressure as needed to reduce further drainage. Decision Support Tool used: Telephone triage for Nursing; Ro 5th edition. Wound healing & infection; pgs [phone]. Disposition/plan of care: Remain at home; Change drsg per instructions. Send photos at time of dsg change. Call into clinic ~ 4pm with update re any continued drainage; To call immediately if increased drainage noted; nsg umber provided. pt and his have discharge instructions and spine nurse printed resource sheet which have clinic contact number as well as after hrs # and instructions to reach resident public relations player. Patient/responsible caregiver able to read back instructions/plan of care? Yes; Pt's restated plan and was in agreement. documented in this encounter Plan of Treatment Not on file documented as of this encounter Visit Diagnoses Not on filedocumented in this encounter Care Teams Brake Repairer Railroad Relationship Specialty Start Date End Date Adelita Charles MD [address] [place] [address] PCP - General 05/07/12 documented as of this encounter
--- OUTSIDE RECORDS SUMMARY | 2024-05-28 20:03 | XMS_ITS | Encounter Summary ---
Author Organization [facility] [place] [address] Care Team Providers Care Toy Packer Name Role Phone Adelita Charles MD Primary Care Provider [phone] Reason for Visit * Auth/Cert Specialty Diagnoses / Procedures Referred By Pilar ho Referred To Contact Diagnoses OA Procedures PRO TOTAL HIP ARTHROPLASTY TOTAL HIP ARTHROPLASTY, ANTERIOR APPROACH (WRVU 20.72) MODIFIER SALAS & NEPHEW - POLAR STEM CEMENTLESS MODIFIER SALAS & NEPHEW - R3 ACETABULAR CUP Bret Peterson MD [address] [place] [address] [facility] Referral ID Status Reason Start Date Expiration Date Visits Re quested Visits Authorized [id number] 1 1 Encounter Details Date Type Department Care Team (Late st Contact Info) Description 04/13/2022 9:05 AM EDT Ancillary Procedure Radiology Xray at [facility] [address] [place] [id number] Social History Tobacco Use Types Packs/Day Years [...] OR USE Routine 04/13/2022 11:11 AM EDT documented in this encounter Results * XR Fluoro No Rad <1Hr - OR Use (04/13/2022 11:11 AM EDT) Narrative Dicom, Auditing User - 04/13/2022 11:12 AM EDT This exam is auto-finalizing. No interpretation was done. Brte Peterson MD IMG FLUORO ORDERABLE S documented in this encounter Visit Diagnoses Not on filedocumented in this encounter Care Teams Toy Packer Relationship Specialty Start Date End Date Adelita Charles MD [address] [place] [address] PCP - General 05/07/12 documented as of this encounter
[2024-05-28 21:22] LABS: HCT 41.5 % (40.0-50.0); HGB 14.1 g/dL (13.5-17.5); MCH 33.9 pg (27.0-33.0); MCV 100 fL (80-95); MPV 10.7 fL (8.0-11.0); Platelet Count 200 10^3/uL (130-400); RBC 4.16 10^6/uL (4.36-5.78); RDW 12.6 % (11.8-14.1); RDW-SD 46.4 fL; WBC 4.59 10^3/uL (4.4-10.8)
[2024-05-28 22:04] LABS: Anion Gap 11.6 mmol/L (3-11); BUN 16 mg/dL (7-18); CO2 28.4 mmol/L (21.0-32.0); CREATININE 1.1 mg/dL (0.70-1.30); Calcium 9.7 mg/dL (8.5-10.1); Chloride 101 mmol/L (98-107); Estimated GFR 74.96 (mL/min/1.73m2); Glucose 115 mg/dL (74-106); Potassium 3.8 mmol/L (3.5-5.1); Sodium 141 mmol/L (136-145); Vitamin B12 156 pg/mL (193-986)
[2024-05-28 22:06] LABS: Folate > 20.0 ng/mL (8.6-20.0)
== END 2024-05-28 19:48 | disposition home or self-care (01) ==
LOC: NCHCN 19:47
PROVIDERS: PCP Family Medicine; Visit Provider Family Medicine
DX: Z86.2 Personal history of diseases of the blood and blood-forming organs and certain disorders involving the immune mechanism (principal); I10 Essential (primary) hypertension
CPT/HCPCS: 80048; 85027; 82607; 82746

== ENCOUNTER 2024-09-17 17:47 | Outpatient (REF) | payer OTHER, SELFPAY ==
[2024-09-17 22:51] LABS: COMMENT (LAB VIEW ONLY) 181.68 mg/dL; Microalb ug/mg Crea 6.9 ug/mg Cr
== END 2024-09-17 17:48 | disposition home or self-care (01) ==
LOC: NCHCN 17:47
PROVIDERS: PCP Family Medicine; Visit Provider Family Medicine
DX: E11.9 Type 2 diabetes mellitus without complications (principal)
CPT/HCPCS: 82043; 82570

== ENCOUNTER 2025-04-13 21:33 | Outpatient (REF) | payer MEDICARE, SELFPAY ==
[2025-04-13 22:32] LABS: Anion Gap 9.6 mmol/L (3-11); BUN 22 mg/dL (7-18); CO2 29.4 mmol/L (21.0-32.0); CREATININE 1.2 mg/dL (0.70-1.30); Calcium 9.6 mg/dL (8.5-10.1); Chloride 98 mmol/L (98-107); Estimated GFR 67.11 (mL/min/1.73m2); Glucose 112 mg/dL (74-106); Potassium 4.1 mmol/L (3.5-5.1); Sodium 137 mmol/L (136-145)
== END 2025-04-13 21:34 | disposition home or self-care (01) ==
LOC: NCHCN 21:33
PROVIDERS: PCP Family Medicine; Visit Provider Family Medicine
DX: I10 Essential (primary) hypertension (principal); E03.9 Hypothyroidism, unspecified
CPT/HCPCS: 80048; 84443

== ENCOUNTER 2025-08-25 15:30 | Outpatient (REF) | payer MEDICARE, SELFPAY ==
[2025-08-25 21:38] LABS: Uric Acid 4.9 mg/dL (3.7-9.2)
[2025-08-25 21:41] LABS: Anion Gap 10.9 mmol/L (3-11); BUN 14 mg/dL (9-23); CO2 28.1 mmol/L (20.0-31.0); Calcium 9.5 mg/dL (8.3-10.6); Chloride 100 mmol/L (98-107); Glucose 150 mg/dL (74-106); Potassium 3.7 mmol/L (3.5-5.1); Sodium 139 mmol/L (136-145)
[2025-08-26 18:27] LABS: PSA, Screening 0.3 ng/mL (<=4.5)
== END 2025-08-25 15:31 | disposition home or self-care (01) ==
LOC: NCHCN 15:30
PROVIDERS: PCP Family Medicine; Visit Provider Family Medicine
DX: M10.9 Gout, unspecified (principal); I10 Essential (primary) hypertension; Z12.5 Encounter for screening for malignant neoplasm of prostate
CPT/HCPCS: 80048; 84153; 84550